=== PATIENT | male | born 1960 | race Caucasian/White ===

== ENCOUNTER 2019-01-21 15:47 | Inpatient (IN) | payer BC ==
[~2019-01-21] VITALS: Ht 182.9 cm; Wt 96.5 kg
[2019-01-21 16:34] LABS: Basophils # (auto) 0 uL; Basophils % (auto) 0.3 % (0.0-2.0); Eosinophils # (auto) 0.1 uL; Eosinophils % (auto) 1.6 % (0.0-7.0); Hematocrit 51.3 % (41.0-53.0); Hemoglobin 17.5 g/dL (13.5-17.5); Lymphocytes # (auto) 2.5 uL; Lymphocytes % (auto) 26.4 % (10.0-50.0); Mean Corpuscular Hemoglobin 30.3 pg (28.0-32.0); Mean Corpuscular Hgb Conc. 34.2 g/dL (32.0-36.0); Mean Corpuscular Volume 88.8 fL (80.0-100.0); Monocytes % (auto) 10.5 % (0.0-12.0); Neutrophils # (auto) 5.8 uL; Neutrophils % (auto) 61.2 % (37.0-80.0); Platelet Count (auto) 331 10^3/uL (140-450); Red Blood Cells 5.77 10^6/uL (4.5-5.90); Red Cell Distribution Width 13.5 % (11.8-14.3); White Blood Cell 9.5 10^3/uL (4.4-10.8)
[2019-01-21 16:43] LABS: Anion Gap 6 (5-15); Blood Urea Nitrogen 19 mg/dL (7-18); Calcium 9.5 mg/dL (8.5-10.1); Carbon Dioxide 29 mmol/L (21-32); Chloride 104 mmol/L (98-107); Glucose 145 mg/dL (74-106); Potassium 4.2 mmol/L (3.5-5.1); Sodium 139 mmol/L (136-145)
[2019-01-21 16:48] LABS: Alanine Aminotransferase 42 U/L (16-61); Alkaline Phosphatase 96 U/L (45-117); Aspartate Aminotransferase 24 U/L (15-37); Bilirubin, Total 0.4 mg/dL (0.2-1.0); GFR African American 87 mL/min; GFR Non-African American 72 mL/min; Total Protein 8.8 g/dL (6.4-8.2)
[2019-01-21 17:21] LABS: INR 0.96 (0.9-1.15); Partial Thromboplastin Time 27.4 sec (23.64-32.05)
[2019-01-21] MEDS ORDERED: ACETAMINOPHEN 325 MG TAB PO PRN (18:00)
[2019-01-21] MEDS ORDERED: MORPHINE SULF INJ 2 MG/ML SYRINGE 1ML IV PRN (18:00)
[2019-01-21] MEDS ORDERED: ONDANSETRON HCL 4 MG/2 ML VIAL IV PRN (18:00)
[2019-01-21] MEDS ORDERED: NITROGLYCERIN 0.4 MG SL TAB SL PRN (18:00)
[2019-01-21] MEDS ORDERED: HYDROcodone-ACET 5/325MG TAB PO PRN (18:00)
[2019-01-21] MEDS ORDERED: DEXTROSE (50%) 50ML SYRG IV PRN (18:00)
[2019-01-21] MEDS ORDERED: MAGNESIUM SULFATE 1GM/100ML 100 ML IV PRN (19:00)
[2019-01-21] MEDS ORDERED: hydrALAZINE HCL 25 MG TAB PO PRN (19:00)
[2019-01-21] MEDS: SODIUM CHLORIDE 0.9% 1,000 ML IV SCH (20:02)
[2019-01-21] MEDS: LISINOPRIL 10 MG TAB PO SCH (20:03)
[2019-01-21] MEDS: InsuLIN REG 1unit/0.01ml Soln (100units/ml) SC SCH (22:00)
[2019-01-21 22:02] LABS: Urine Bacteria NONE SEEN /hpf (None Seen); Urine Blood Negative /uL (Negative); Urine Specific Gravity 1.018 (1.001-1.035); Urine WBC 3 /hpf (0 - 3)
[2019-01-21] MEDS: ACCU-CHEK COMFORT CURVE STRIP VI SCH (22:05)
[2019-01-21] MEDS: GEMFIBROZIL 600 MG TAB PO SCH (22:10)
[2019-01-21 22:13] LABS: Alcohol, Urine < 3.0 mg/dL (0-5); Amphetamine Screen, Urine NEGATIVE (NEGATIVE); Barbiturate Scree,Urine NEGATIVE (NEGATIVE); Benzodiazephine Screen, Urine NEGATIVE (NEGATIVE); Cannabinoid Screen, Urine NEGATIVE (NEGATIVE); Cocaine Screen, Urine NEGATIVE (NEGATIVE); Opiate Scree,Urine NEGATIVE (NEGATIVE); Phencyclidine Screen, Urine NEGATIVE (NEGATIVE)
--- NOTE | 2019-01-21 23:35 | NUR ---
Admit ICU from ER. Arrival note: Received from ER on stretcher. Pt hooked up to ICU monitoring and oriented to room and nurse. Pt alert and oriented times four. Hematoma noted on top of head and left elbow skin tear. No complaints of pain or chest pain. VSS. Full assessment done see interventions. Bed locked in lowest position side rails up x2. Call light within reach. All questions and concerns addressed at this time.
[2019-01-22] VITALS (32 sets, daily range): BP systolic 116–166; BP diastolic 67–97
[2019-01-22] MEDS ORDERED: LISI10TA6 PO (00:55)
--- NOTE | 2019-01-22 02:00 | NUR ---
EKG done and in the chart. EKG shows sinus rhythm with 1st degree heart block.
--- NOTE | 2019-01-22 04:00 | NUR ---
ROUNDS PT HAS NO COMPLAINTS OF PAIN AT THIS TIME. VSS. WILL CONTINUE TO MONITOR
[2019-01-22 04:25] LABS: Basophils # (auto) 0 uL; Basophils % (auto) 0.4 % (0.0-2.0); Eosinophils # (auto) 0.1 uL; Eosinophils % (auto) 0.8 % (0.0-7.0); Hematocrit 48.2 % (41.0-53.0); Hemoglobin 16.3 g/dL (13.5-17.5); Lymphocytes # (auto) 2.2 uL; Lymphocytes % (auto) 20.5 % (10.0-50.0); Mean Corpuscular Hemoglobin 29.8 pg (28.0-32.0); Mean Corpuscular Hgb Conc. 33.9 g/dL (32.0-36.0); Monocytes # (auto) 1.1 uL; Monocytes % (auto) 9.9 % (0.0-12.0); Neutrophils # (auto) 7.4 uL; Neutrophils % (auto) 68.4 % (37.0-80.0); Platelet Count (auto) 305 10^3/uL (140-450); Red Blood Cells 5.47 10^6/uL (4.5-5.90); Red Cell Distribution Width 13.8 % (11.8-14.3); White Blood Cell 10.8 10^3/uL (4.4-10.8)
[2019-01-22 04:47] LABS: Calcium 8.9 mg/dL (8.5-10.1); Chloride 106 mmol/L (98-107); Sodium 139 mmol/L (136-145)
[2019-01-22 04:54] LABS: Alanine Aminotransferase 33 U/L (16-61); Albumin 3.3 g/dL (3.4-5.0); Alkaline Phosphatase 87 U/L (45-117); Anion Gap 9 (5-15); Aspartate Aminotransferase 22 U/L (15-37); BUN/Creatinine Ratio 20.2; Bilirubin, Total 0.5 mg/dL (0.2-1.0); Blood Urea Nitrogen 18 mg/dL (7-18); Carbon Dioxide 24 mmol/L (21-32); Cholesterol 213 mg/dL (< 200); GFR African American 113 mL/min; GFR Non-African American 93 mL/min; Glucose 148 mg/dL (74-106); HDL Cholesterol 44 mg/dL (40-59); LDL Cholesterol 145 mg/dL (< 100); Magnesium 1.3 mg/dL (1.6-2.6); Total Protein 7.6 g/dL (6.4-8.2); Triglycerides 220 mg/dL (< 150)
[2019-01-22] MEDS: ACCU-CHEK COMFORT CURVE STRIP VI SCH ×4 (06:28→21:06)
[2019-01-22] MEDS: InsuLIN REG 1unit/0.01ml Soln (100units/ml) SC SCH ×4 (06:28→21:06)
--- NOTE | 2019-01-22 07:10 | NUR ---
DR AYALA AT BEDSIDE UPDATED ON STATUS THROUGHOUT THE NIGHT, RECEIVED NEW ORDERS
--- NOTE | 2019-01-22 07:14 | NUR ---
End of shift Report given to CONSTANTINO Kaur to assume care
--- NOTE | 2019-01-22 08:15 | NUR ---
FAMILY AT BEDSIDE PATIENTS AND DAUGHTER AT BEDSIDE. UPDATED ON PATIENTS STATUS AND PLAN OF CARE
[2019-01-22] MEDS: MAGNESIUM SULFATE 1GM/100ML 100 ML IV SCH ×3 (08:20→10:41)
--- NOTE | 2019-01-22 08:25 | NUR ---
COMMUNITY CULTURAL DEVELOPMENT OFFICER AT BEDSIDE
[2019-01-22] MEDS: ENOXAPARIN SOD 40 MG/0.4 ML SYRINGE SC SCH (10:00)
[2019-01-22] MEDS ORDERED: CYANOCOBALAMIN (B-12) 1000 MCG/1 ML VIAL SUBCUT ONE (10:00)
[2019-01-22] MEDS: PANTOPRAZOLE 40 MG TAB PO SCH (10:41)
[2019-01-22] MEDS: LISINOPRIL 10 MG TAB PO SCH (10:41)
[2019-01-22] MEDS: ASPirin 81 mg TAB PO SCH (10:42)
[2019-01-22] MEDS: GEMFIBROZIL 600 MG TAB PO SCH ×2 (10:45→20:54)
[2019-01-22] MEDS: SODIUM CHLORIDE 0.9% 1,000 ML IV SCH (11:47)
--- NOTE | 2019-01-22 12:20 | NUR ---
DR SHARMA AT BEDSIDE DISCUSSED PLAN OF CARE WITH PATIENT, PATIENTS DAUGHTER AND PATIENTS . DISCUSSED ECHO RESULTS
--- NOTE | 2019-01-22 13:20 | NUR ---
DR CAMERON CALLED AND SPOK WITH WATER QUALITY ANALYST PLAN FOR PACEMAKER FOR TOMORROW
--- NOTE | 2019-01-22 13:46 | NUR ---
spoke with dr fuentes he will call dr gray regarding recommendations for heart cath angiogram
--- NOTE | 2019-01-22 15:05 | NUR ---
SENIOR LIVING SALES COUNSELOR AT BEDSIDE FOR CAROTID STUDY
--- NOTE | 2019-01-22 18:30 | NUR ---
BRADYCARDIA EPISODE PATIENT WENT INTO 3RD DEGREE HEART BLOCK, PACER PADS IN PLACE, PATIENT CONVERTED OUT OF RHYTHM BY HISELF AND CURRENTLY IN 1 DEGREE HEART BLOCK. STRIP PRINTED AND IN CHART
--- NOTE | 2019-01-22 19:30 | NUR ---
Opening Shift Note Pt laying in bed with family at bedside. POC reviewed. Pt to go for pacemaker insertion in AM. consents signed in chart. All questions and concerns addressed at this time. bed locked in lowest position. call light within reach. Will continue to monitor closely.
[2019-01-22] MEDS: ATORVASTATIN 20 MG TAB PO SCH (20:54)
--- NOTE | 2019-01-22 21:51 | NUR ---
DR. CAMERON PHONES IN. NEW ORDERS RECEIVED TO HAVE NS RUNNING AT 100 MLS/HR
[2019-01-23] VITALS (15 sets, daily range): BP systolic 106–148; BP diastolic 61–83
--- NOTE | 2019-01-23 01:48 | NUR ---
Respiratory Pt sleeping but continuously desaturates to 80's. Oxygen applied at 2lpm nasal cannula.
[2019-01-23 04:01] LABS: Calcium 9.2 mg/dL (8.5-10.1); Magnesium 1.7 mg/dL (1.6-2.6); Potassium 4.3 mmol/L (3.5-5.1)
[2019-01-23 04:03] LABS: BUN/Creatinine Ratio 21.6
[2019-01-23 04:06] LABS: RPR Non Reactive (Non Reactive)
[2019-01-23] MEDS: InsuLIN REG 1unit/0.01ml Soln (100units/ml) SC SCH ×4 (06:14→21:25)
[2019-01-23] MEDS: ACCU-CHEK COMFORT CURVE STRIP VI SCH ×4 (07:00→21:25)
--- NOTE | 2019-01-23 07:10 | NUR ---
ANESTHESIOLOGISTS' ASSISTANT HERE TO TAKE PT FOR PACEMAKER INSERTION.
[2019-01-23] MEDS: SODIUM CHLORIDE 0.9% 1,000 ML IV SCH ×3 (07:59→18:00)
--- NOTE | 2019-01-23 08:00 | NUR ---
PATIENT RETURNED FROM SENIOR PRICING ANALYST- UNABLE TO DO PACEMAKER AT THIS TIME DUE TO EMERGENT CASE IN SENIOR PRICING ANALYST. PATIENT WILL REMAIN NPO UNTIL RN CONFIRMS RESCHEDULE DATE AND TIME
--- NOTE | 2019-01-23 08:30 | NUR ---
SPOKE WITH DR AYALA AND DR SHARMA FAMILY REQUESTING CONSULT FOR DR DELACRUZ FOR LEFT HEART CATHETERIZATION. MDS AGREE, CONSULT DR DELACRUZ
[2019-01-23] MEDS: MAGNESIUM SULFATE 1GM/100ML 100 ML IV SCH ×3 (08:49→12:00)
--- NOTE | 2019-01-23 09:00 | NUR ---
DR DELACRUZ IN [facility] WILL DO HEART CATH TODAY.
--- NOTE | 2019-01-23 09:06 | NUR ---
Assessment Pt is a 58 yr old alert and oriented male. Prior to admit, pt lived with his , Emily, who is his emergency contact at [phone]. Prior to admit, pt was ambulatory, and independent with ADL's with no use of medical equipment. Pt admitted due to syncope and stated that they are currently doing test to find out the problem. Pt is employed and has no interest in AD. Pt has never used HH and states that he won't need it after d/c. Pt family will transport pt home upon d/c. No needs or concerns expressed at this time. Further needs will be assessed closer to d/c. Addendum: 01/23/19 at 0910 by WANDER FAYE Amended: Links added.
[2019-01-23] MEDS ORDERED: LIDOCAINE 2%HCL (LOCAL ANESTH.) INJ 20ML MDV ONE ×2 (09:29→15:08)
[2019-01-23] MEDS ORDERED: IOHEXOL 350 MG/ML 100ML IJ ONE (09:29)
--- NOTE | 2019-01-23 09:31 | NUR ---
MANAGER OF INTERNAL TEAM AT BEDSIDE PREPPING PATIENT FOR LEFT HEART ANGIOGRAM
[2019-01-23] MEDS ORDERED: IODIXANOL 320MG/ML 100ML BTL IV ONE ×2 (09:32→09:33)
[2019-01-23] MEDS ORDERED: ANGIOMAX 250 MG VIAL IV ONE (09:35)
[2019-01-23] MEDS ORDERED: fentaNYL CITRATE 100 MCG/2 ML VL ONE ×2 (09:35→15:08)
--- NOTE | 2019-01-23 09:35 | NUR ---
CARAMEL CUTTER HELPER TEAM TRANSPORTING PATIENT TO CARAMEL CUTTER HELPER CONNECTED TO PORTABLE WORT EXTRACTOR. VITALS STABLE AT TIME OF TRANSFER
[2019-01-23] MEDS ORDERED: SODIUM CHL 0.9% 0 ML ONE (09:36)
[2019-01-23] MEDS ORDERED: MIDAZOLAM HCL 1MG/1ML-2 ML VIAL ONE ×2 (09:36→15:08)
[2019-01-23] MEDS ORDERED: VERAPAMIL 2.5MG/ML INJ 2ML VIAL IV ONE (09:36)
[2019-01-23] MEDS ORDERED: HEPARIN SODIUM (PORCINE) 5000 UNITS/ML 1ML VIAL ONE (10:25)
--- NOTE | 2019-01-23 10:53 | NUR ---
PATIENT RETURNED FROM STREET ROLLER ENGINEER PATIENT AOX4, LEFT RADIAL ACCESS HAS TR BAND, NO HEMATOMA OR BLEEDING NOTED. WILL CONTINUE TO MONITOR CLOSELY. UPDATED ON PLAN OF CARE AND AT BEDSIDE
[2019-01-23] MEDS: ENOXAPARIN SOD 40 MG/0.4 ML SYRINGE SC SCH (11:01)
[2019-01-23] MEDS: ASPirin 81 mg TAB PO SCH (11:02)
--- NOTE | 2019-01-23 11:10 | NUR ---
2CC REMOVED FROM TR BAND NO BLEEDING OR HEMATOMA NOTED. WILL CONTINUE TO MONITOR
--- NOTE | 2019-01-23 11:21 | NUR ---
2CC REMOVED FROM TR BAND NO HEMATOMA OR BNLEEDING NOTED. PATIENT DENIES PAIN. WILL CONTINUE TO MONITOR
--- NOTE | 2019-01-23 11:55 | NUR ---
4CC OF AIR REMOVED FROM TR BAND NO BLEEDING OR HEMATOMA AT SITE NOTED. WILL CONTINUE TO MONITOR
[2019-01-23] MEDS: LISINOPRIL 10 MG TAB PO SCH (12:08)
[2019-01-23] MEDS: GEMFIBROZIL 600 MG TAB PO SCH ×2 (12:08→21:25)
[2019-01-23] MEDS: PANTOPRAZOLE 40 MG TAB PO SCH (12:08)
--- NOTE | 2019-01-23 12:10 | NUR ---
REMAINING 3 CC OF AIR REMOVED FROM TR BAND. NO BLEEDING OR HEMATOMA NOTED.
[2019-01-23] MEDS ORDERED: VANCOMYCIN 1GM/250ML 250 ML IV ONE (15:08)
[2019-01-23] MEDS ORDERED: BACITRACIN INJ 50000 UNIT VIAL ONE (15:09)
[2019-01-23] MEDS ORDERED: VANCOMYCIN HCL 1000 MG VL ONE (15:10)
--- NOTE | 2019-01-23 15:10 | NUR ---
SEMICONDUCTOR PROCESSING TECHNICIAN TEAM TRANSPORTED PATIENT TO SEMICONDUCTOR PROCESSING TECHNICIAN FOR PACEMAKER PROCEDURE AT BEDSIDE. PATIENTS VITALS STABLE AT TIME OF TRANSPORT
--- NOTE | 2019-01-23 17:00 | NUR ---
PATIENT RETURNED FROM CRACKER AND COOKIE MACHINE OPERATOR, POST PROCEDURE CXR COMPLETED IN ROOM, S/P PACEMAKER EKG COMPLETE IN IN CHART, PATIENT SINUS WITH 1ST DEGREE HEART BLOCK. ICE PACK PLACED IN PACEMAKER SITE. NO BLEEDING OR HEMATOMA NOTED AT SURGICAL SITE. PATIENT DENIES PAIN AT THIS TIME, BED IN LOW POSITION, CALL LIGHT WITH REACH
--- NOTE | 2019-01-23 17:05 | NUR ---
PATIENTS JOAQUIN AT BEDSIDE DR CAMERON SPOKE WITH HER POST PROCEDURE. PATIENT TO BE OFF WORK FOR 2 WEEKS AND 6 WEEKS NO LIFTING.
[2019-01-23] MEDS ORDERED: MORPHINE SULF INJ 2 MG/ML SYRINGE 1ML IV PRN (21:15)
[2019-01-23] MEDS ORDERED: HYDROcodone-ACET 5/325MG TAB PO PRN (21:15)
[2019-01-23] MEDS ORDERED: HYDROcodone-ACET 10/325MG TAB PO PRN (21:15)
[2019-01-23] MEDS: ATORVASTATIN 20 MG TAB PO SCH (21:24)
[2019-01-23] MEDS: DOXYCYCLINE 100 MG TAB/CAP PO SCH (21:24)
[2019-01-23] MEDS: VANCOMYCIN 1GM/250ML 250 ML IV SCH (21:24)
[2019-01-24] VITALS (8 sets, daily range): BP systolic 106–143; BP diastolic 58–73
[2019-01-24] MEDS: SODIUM CHLORIDE 0.9% 1,000 ML IV SCH (01:49)
[2019-01-24 05:40] LABS: INR 1.06 (0.9-1.15); Partial Thromboplastin Time 27.6 sec (23.64-32.05)
[2019-01-24 05:47] LABS: BUN/Creatinine Ratio 17.7; Calcium 8.6 mg/dL (8.5-10.1); Magnesium 1.7 mg/dL (1.6-2.6); Potassium 4.4 mmol/L (3.5-5.1)
[2019-01-24] MEDS: ACCU-CHEK COMFORT CURVE STRIP VI SCH ×2 (06:15→11:30)
[2019-01-24] MEDS: InsuLIN REG 1unit/0.01ml Soln (100units/ml) SC SCH ×2 (06:16→11:30)
[2019-01-24 07:07] LABS: Basophils # (auto) 0 uL; Basophils % (auto) 0.4 % (0.0-2.0); Eosinophils # (auto) 0.2 uL; Eosinophils % (auto) 2.4 % (0.0-7.0); Hematocrit 45.9 % (41.0-53.0); Hemoglobin 15.5 g/dL (13.5-17.5); Lymphocytes # (auto) 1.7 uL; Lymphocytes % (auto) 20.3 % (10.0-50.0); Mean Corpuscular Hemoglobin 29.8 pg (28.0-32.0); Mean Corpuscular Hgb Conc. 33.7 g/dL (32.0-36.0); Mean Corpuscular Volume 88.5 fL (80.0-100.0); Monocytes % (auto) 11.8 % (0.0-12.0); Neutrophils # (auto) 5.4 uL; Neutrophils % (auto) 65.1 % (37.0-80.0); Nucleated Red Blood Cells % 0.1 %; Platelet Count (auto) 275 10^3/uL (140-450); Red Blood Cells 5.19 10^6/uL (4.5-5.90); Red Cell Distribution Width 13.2 % (11.8-14.3); White Blood Cell 8.2 10^3/uL (4.4-10.8)
--- NOTE | 2019-01-24 07:30 | NUR ---
REPORT OBTAINED BY NOC NURSE PER NOC NURSE LUCY HAS MADE ROUNDS, AWAITING D/C CLEARANCE BY DR. CAMERON AFTER PACEMAKER INTERROGATION. MEDICATIONS TO BE CALLED IN BY MD TO PATIENTS PHARMACY ( [facility]). VERIFIED WITH PATIENT. 3 GRAMS OF MAGNESIUM TO BE GIVEN.
[2019-01-24] MEDS: MAGNESIUM SULFATE 1GM/100ML 100 ML IV SCH ×3 (07:54→11:07)
--- NOTE | 2019-01-24 08:11 | NUR ---
STATUS PATIENT ALERT AND ORIENTED X4, PATIENT CURRENTLY V PACED, VSS, ON ROOM AIR. LEFT UPPER ARM CDI, ICE PACK OVER SITE, PT STATING SLIGHTLY PAIN 3/10, NO MEDICATION REQUESTED AT THIS TIME. PATIENT ASSISTED OOB TO CHAIR USING STANDBY ASSISTANCE, STEADY GAIT NOTED. GERALD LICEA AT BEDSIDE FOR PACEMAKER INTERROGATION. PT VERIFIED PHARMACY [facility].
--- NOTE | 2019-01-24 09:00 | NUR ---
PARTS COUNTER ASSOCIATE DR. DELACRUZ UPDATED ON PATIENTS STATUS. REVIEWED CXR. NEW ORDER IN PLACE
[2019-01-24] MEDS ORDERED: INSULIN LANTUS (GLARGINE) 1 /0.01ml (100units/ml) SC ONE ×2 (09:15→10:00)
[2019-01-24] MEDS ORDERED: FUROSEMIDE 20 MG TAB PO ONE (09:15)
--- NOTE | 2019-01-24 09:34 | NUR ---
HOSPITALIST DR AYALA CALLED. UPDATED ON PATIENTS STATUS. NEW ORDERS IN PLACE. NEW CONSULT FOR DEHYDRATION PLANT OPERATOR. PER DR. AYALA IF DEHYDRATION PLANT OPERATOR DOES NOT SEE PATIENT BEFORE D/C OK TO D/C HOME. NUMBER TO BE PROVIDED FOR FOLLOW UP WITH D.C INSTRUCTIONS.
[2019-01-24] MEDS: PANTOPRAZOLE 40 MG TAB PO SCH (09:44)
[2019-01-24] MEDS: ASPirin 81 mg TAB PO SCH (09:44)
[2019-01-24] MEDS: DOXYCYCLINE 100 MG TAB/CAP PO SCH (09:44)
[2019-01-24] MEDS: VANCOMYCIN 1GM/250ML 250 ML IV SCH (09:45)
[2019-01-24] MEDS: ENOXAPARIN SOD 40 MG/0.4 ML SYRINGE SC SCH (09:53)
[2019-01-24] MEDS: GEMFIBROZIL 600 MG TAB PO SCH (09:55)
--- NOTE | 2019-01-24 10:17 | NUR ---
AMBULATION PATIENT ASSISTED OOB WALKED AROUND NURSES STATION ON ROOM AIR, DENIES ANY DIZZINESS. PT TOLERATED AMBULATION WELL.
--- NOTE | 2019-01-24 11:55 | NUR ---
DR. RAKESH MTZ FOR D/C CLEARANCE. ALL GTTS ORDERED COMPLETED. PATIENTS PHARMACY HAS CALLED WITH PRESCRIPTION READY. TO NURSING RESIDENT MEDS.
[2019-01-24] MEDS: LISINOPRIL 10 MG TAB PO SCH (12:05)
--- NOTE | 2019-01-24 13:42 | NUR ---
DR. ANDERSON OFFICE CALLED. NO ANSWER. WILL TRY AGAIN FOR D/C CLEARANCE. Addendum: 01/24/19 at 1343 by Anne Castillo RN AMEND TIME 1330
--- NOTE | 2019-01-24 13:44 | NUR ---
DR. CAMERON CALLED. RACHEL FOR D/C CLEARANCE. PT TO FOLLOW UP NEXT TUESDAY FOR STAPLE REMOVAL 01/31/19
--- NOTE | 2019-01-24 14:25 | NUR ---
DR. SHARMA AT BEDSIDE. MD RAMOS FOR D/C.
--- NOTE | 2019-01-24 14:37 | NUR ---
Discharge instructions given as ordered. Encourage to follow up with PMD as instructed. All questions and concerns addressed. Patient verbalized understanding. IV removed with catheter intact, pressure dressing applied, bhandari catheter removed. Patient taken to vehicle via wheelchair with all personal belongings, accompanied by staff and family member. No distress noted at time of departure.
== END 2019-01-24 14:37 | disposition home or self-care (01) | DRG 244 ==
LOC: ER 15:47 → TELE 15:48 → ICU WEST 23:20
PROVIDERS: ADMIT Family Medicine; ATTEND Family Medicine
PROC: B211YZZ Fluoroscopy of Multiple Coronary Arteries using Other Contrast (ICD-10-PCS; principal; 2019-01-23)
PROC: 0JH606Z Insertion of Pacemaker, Dual Chamber into Chest Subcutaneous Tissue and Fascia, Open Approach (ICD-10-PCS; 2019-01-23)
PROC: 02HK3JZ Insertion of Pacemaker Lead into Right Ventricle, Percutaneous Approach (ICD-10-PCS; 2019-01-23)
PROC: 02H63JZ Insertion of Pacemaker Lead into Right Atrium, Percutaneous Approach (ICD-10-PCS; 2019-01-23)
PROC: B5171ZZ Fluoroscopy of Left Subclavian Vein using Low Osmolar Contrast (ICD-10-PCS; 2019-01-23)
DX: I44.2 Atrioventricular block, complete (principal); E11.9 Type 2 diabetes mellitus without complications; E78.2 Mixed hyperlipidemia; E83.42 Hypomagnesemia; I11.9 Hypertensive heart disease without heart failure; R55 Syncope and collapse; S00.03XA Contusion of scalp, initial encounter; I49.5 Sick sinus syndrome; J32.0 Chronic maxillary sinusitis; W18.39XA Other fall on same level, initial encounter; Z82.49 Family history of ischemic heart disease and other diseases of the circulatory system; Z83.3 Family history of diabetes mellitus; Y93.89 Activity, other specified; Y92.89 Other specified places as the place of occurrence of the external cause; Y99.8 Other external cause status
CPT/HCPCS: 33208; 36415; 70450; 71045; 75820; 80048; 80053; 80061; 80307; 81001; 82306; 82607; 82962; 83036; 83735; 84443; 84484; 85025; 85610; 85730; 86592; 87040; 87081; 93005; 93306; 93454; 93886; 96361; 96365; 99152; 99153; C1785; G0378; J1815; J2250; Q9967

== ENCOUNTER 2019-05-07 00:01 | Inpatient (IN) | payer BC ==
[2019-05-07] VITALS (20 sets, daily range): BP systolic 107–140; BP diastolic 69–88
[~2019-05-07] VITALS: Ht 180.3 cm; Wt 104.7 kg
[~2019-05-07 00:01] MED LIST: LISI10TA6 PO
[2019-05-07 05:07] LABS: Basophils # (auto) 0 uL; Basophils % (auto) 0.3 % (0.0-2.0); Eosinophils # (auto) 0.2 uL; Eosinophils % (auto) 1.9 % (0.0-7.0); Hematocrit 43.7 % (41.0-53.0); Hemoglobin 14.9 g/dL (13.5-17.5); Lymphocytes # (auto) 2.2 uL; Lymphocytes % (auto) 23.6 % (10.0-50.0); Mean Corpuscular Hemoglobin 30.2 pg (28.0-32.0); Mean Corpuscular Hgb Conc. 34.1 g/dL (32.0-36.0); Mean Corpuscular Volume 88.6 fL (80.0-100.0); Monocytes # (auto) 1.1 uL; Monocytes % (auto) 11.1 % (0.0-12.0); Neutrophils % (auto) 63.1 % (37.0-80.0); Nucleated Red Blood Cells % 0.1 %; Platelet Count (auto) 318 10^3/uL (140-450); Red Blood Cells 4.93 10^6/uL (4.5-5.90); Red Cell Distribution Width 14.3 % (11.8-14.3); White Blood Cell 9.5 10^3/uL (4.4-10.8)
[2019-05-07 05:16] LABS: Albumin 3.8 g/dL (3.4-5.0); BUN/Creatinine Ratio 15.6; Calcium 9.6 mg/dL (8.5-10.1)
[2019-05-07 05:19] LABS: Bilirubin, Total 0.5 mg/dL (0.2-1.0); Total Protein 8.1 g/dL (6.4-8.2)
[2019-05-07] MEDS ORDERED: AMIODARONE HCL (50 MG/ ML) 3 ML VIAL IV ONE (06:32)
[2019-05-07] MEDS ORDERED: AMIODARONE HCL 150 MG in D5W 5% 100 ML IV ONE (06:45)
[2019-05-07] MEDS ORDERED: AMIODARONE HCL 900 MG in DEXTROSE 500 ML IV SCH (06:51)
[2019-05-07] MEDS ORDERED: MAGNESIUM SULFATE 1GM/100ML 100 ML IV ONE ×3 (08:15→09:15)
[2019-05-07] MEDS ORDERED: NITROGLYCERIN 0.4 MG SL TAB SL PRN (09:45)
[2019-05-07] MEDS ORDERED: ENALAPRILAT 1.25 MG/ML-1ML VIAL IV PRN (09:45)
[2019-05-07] MEDS ORDERED: MORPHINE SULF INJ 2 MG/ML SYRINGE 1ML IV PRN (09:45)
[2019-05-07] MEDS ORDERED: DEXTROSE (50%) 50ML SYRG IV PRN (09:45)
[2019-05-07] MEDS: SODIUM CHLORIDE 0.9% 1,000 ML IV SCH ×2 (09:45→14:27)
[2019-05-07] MEDS ORDERED: LOSARTAN POTASSIUM 25 MG TAB PO SCH (10:00)
[2019-05-07] MEDS ORDERED: LIDOCAINE 2%HCL (LOCAL ANESTH.) INJ 20ML MDV ONE (10:25)
[2019-05-07] MEDS ORDERED: IODIXANOL 320MG/ML 100ML BTL IV ONE ×2 (10:25→10:34)
[2019-05-07] MEDS ORDERED: fentaNYL CITRATE 100 MCG/2 ML VL ONE (10:28)
[2019-05-07] MEDS ORDERED: HEPARIN SODIUM (PORCINE) 5000 UNITS/ML 1ML VIAL ONE (10:28)
[2019-05-07] MEDS ORDERED: MIDAZOLAM HCL 1MG/1ML-2 ML VIAL ONE (10:28)
[2019-05-07] MEDS ORDERED: VERAPAMIL 2.5MG/ML INJ 2ML VIAL IV ONE (10:28)
[2019-05-07] MEDS ORDERED: ANGIOMAX 250 MG VIAL IV ONE (10:28)
[2019-05-07] MEDS ORDERED: SODIUM CHL 0.9% 0 ML ONE (10:28)
[2019-05-07 10:33] LABS: INR 1.14 (0.9-1.15); Partial Thromboplastin Time 28.8 sec (23.64-32.05)
[2019-05-07] MEDS: InsuLIN REG 1unit/0.01ml Soln (100units/ml) SC SCH ×3 (11:30→23:16)
[2019-05-07] MEDS ORDERED: ACETAMINOPHEN 500 MG TAB PO PRN (11:30)
[2019-05-07] MEDS: ACCU-CHEK COMFORT CURVE STRIP VI SCH ×3 (11:30→23:15)
[2019-05-07] MEDS ORDERED: MEXILETINE HYDROCHLORIDE 150 MG CAP PO ONE (12:00)
[2019-05-07] MEDS ORDERED: METOPROLOL TARTRATE 25 MG TAB PO ONE (12:00)
[2019-05-07] MEDS: MAGNESIUM SULFATE 1GM/100ML 100 ML IV SCH ×2 (12:07→13:08)
[2019-05-07] MEDS: LIDOCAINE 4MG/ML IV SOLN 500 ML IV SCH (12:51)
[2019-05-07] MEDS ORDERED: MEXILETINE HYDROCHLORIDE 150 MG CAP PO SCH (14:00)
[2019-05-07] MEDS: AMIODARONE HCL 900 MG in DEXTROSE 500 ML IV SCH (14:05)
[2019-05-07 15:33] LABS: Potassium 4.3 mmol/L (3.5-5.1)
[2019-05-07 15:35] LABS: Magnesium 2.5 mg/dL (1.6-2.6)
[2019-05-07] MEDS ORDERED: SODIUM CHLORIDE 0.9% 1,000 ML IV ONE (15:45)
[2019-05-07] MEDS: ONDANSETRON HCL 4 MG/2 ML VIAL IV PRN (16:19)
[2019-05-07] MEDS ORDERED: PANTOPRAZOLE 40 MG TAB PO ONE (16:45)
[2019-05-07] MEDS ORDERED: GLIM1TAB3 PO (18:58)
[2019-05-07] MEDS ORDERED: LOSA-69 PO (18:58)
[2019-05-07] MEDS ORDERED: GEMF600T PO (18:58)
[2019-05-07] MEDS ORDERED: ATOR20TA50 PO (18:58)
[2019-05-07] MEDS ORDERED: METF-371 PO (18:58)
[2019-05-07 21:32] LABS: Anion Gap 7 (5-15); BUN/Creatinine Ratio 18.5; Blood Urea Nitrogen 20 mg/dL (7-18); Calcium 8.2 mg/dL (8.5-10.1); Carbon Dioxide 19 mmol/L (21-32); Chloride 109 mmol/L (98-107); GFR African American 90 mL/min; GFR Non-African American 74 mL/min; Glucose 227 mg/dL (74-106); Magnesium 2.2 mg/dL (1.6-2.6); Potassium 4.9 mmol/L (3.5-5.1); Sodium 135 mmol/L (136-145)
[2019-05-07 21:41] LABS: Basophils # (auto) 0 uL; Basophils % (auto) 0.1 % (0.0-2.0); Eosinophils # (auto) 0 uL; Eosinophils % (auto) 0.1 % (0.0-7.0); Hematocrit 45.8 % (41.0-53.0); Hemoglobin 14.5 g/dL (13.5-17.5); Lymphocytes # (auto) 1.3 uL; Lymphocytes % (auto) 9.9 % (10.0-50.0); Mean Corpuscular Hemoglobin 29.5 pg (28.0-32.0); Mean Corpuscular Hgb Conc. 31.7 g/dL (32.0-36.0); Mean Corpuscular Volume 93.3 fL (80.0-100.0); Monocytes # (auto) 0.7 uL; Monocytes % (auto) 5.3 % (0.0-12.0); Neutrophils # (auto) 11.1 uL; Neutrophils % (auto) 84.6 % (37.0-80.0); Nucleated Red Blood Cells % 0.1 %; Platelet Count (auto) 254 10^3/uL (140-450); Red Blood Cells 4.91 10^6/uL (4.5-5.90); White Blood Cell 13.2 10^3/uL (4.4-10.8)
[2019-05-07] MEDS: METOPROLOL TARTRATE 25 MG TAB PO SCH (22:00)
[2019-05-07] MEDS: ATORVASTATIN 20 MG TAB PO SCH (23:14)
[2019-05-07] MEDS: MEXILETINE HYDROCHLORIDE 150 MG CAP PO SCH (23:14)
[2019-05-07] MEDS: INSULIN LANTUS (GLARGINE) 1 /0.01ml (100units/ml) SC SCH (23:15)
[2019-05-07] MEDS: PANTOPRAZOLE 40 MG TAB PO SCH (23:15)
[2019-05-08] VITALS (44 sets, daily range): BP systolic 103–140; BP diastolic 55–85
[2019-05-08] MEDS ORDERED: AMIODARONE HCL 900 MG IV ONE (01:25)
[2019-05-08 04:29] LABS: Basophils # (auto) 0 uL; Basophils % (auto) 0.2 % (0.0-2.0); Eosinophils # (auto) 0 uL; Eosinophils % (auto) 0.2 % (0.0-7.0); Hematocrit 41.8 % (41.0-53.0); Hemoglobin 14.1 g/dL (13.5-17.5); Lymphocytes # (auto) 1.8 uL; Lymphocytes % (auto) 15.4 % (10.0-50.0); Mean Corpuscular Hemoglobin 30.2 pg (28.0-32.0); Mean Corpuscular Hgb Conc. 33.8 g/dL (32.0-36.0); Mean Corpuscular Volume 89.3 fL (80.0-100.0); Monocytes # (auto) 1.3 uL; Monocytes % (auto) 11.3 % (0.0-12.0); Neutrophils # (auto) 8.5 uL; Neutrophils % (auto) 72.9 % (37.0-80.0); Nucleated Red Blood Cells % 0.1 %; Platelet Count (auto) 237 10^3/uL (140-450); Red Blood Cells 4.68 10^6/uL (4.5-5.90); Red Cell Distribution Width 14.7 % (11.8-14.3); White Blood Cell 11.6 10^3/uL (4.4-10.8)
[2019-05-08 04:53] LABS: Albumin 3.3 g/dL (3.4-5.0); Calcium 8.4 mg/dL (8.5-10.1); Magnesium 1.9 mg/dL (1.6-2.6); Potassium 4.6 mmol/L (3.5-5.1)
[2019-05-08 04:58] LABS: BUN/Creatinine Ratio 18.9; Bilirubin, Total 0.7 mg/dL (0.2-1.0)
[2019-05-08] MEDS: SODIUM CHLORIDE 0.9% 1,000 ML IV SCH ×2 (05:45→15:45)
[2019-05-08] MEDS: INSULIN LANTUS (GLARGINE) 1 /0.01ml (100units/ml) SC SCH ×2 (07:00→21:06)
[2019-05-08] MEDS: ACCU-CHEK COMFORT CURVE STRIP VI SCH ×4 (07:03→21:18)
[2019-05-08] MEDS: InsuLIN REG 1unit/0.01ml Soln (100units/ml) SC SCH ×4 (07:04→21:34)
[2019-05-08] MEDS: MEXILETINE HYDROCHLORIDE 150 MG CAP PO SCH ×3 (07:45→21:06)
[2019-05-08] MEDS ORDERED: MAGNESIUM SULFATE 1GM/100ML 200 ML IV ONE (07:45)
[2019-05-08] MEDS: MAGNESIUM SULFATE 1GM/100ML 100 ML IV SCH ×2 (08:40→10:18)
[2019-05-08] MEDS: ONDANSETRON HCL 4 MG/2 ML VIAL IV PRN ×3 (09:45→20:52)
[2019-05-08] MEDS: PANTOPRAZOLE 40 MG TAB PO SCH ×2 (11:42→21:06)
[2019-05-08] MEDS: METOPROLOL TARTRATE 25 MG TAB PO SCH ×2 (11:42→21:05)
[2019-05-08] MEDS: AMIODARONE HCL 900 MG in DEXTROSE 500 ML IV SCH (12:51)
[2019-05-08] MEDS: LIDOCAINE 4MG/ML IV SOLN 500 ML IV SCH (17:40)
[2019-05-08] MEDS ORDERED: LORazepam 2MG/ML-1ML VIAL ONE (18:38)
[2019-05-08] MEDS ORDERED: TEMAZEPAM 15 MG CAP PO PRN (18:45)
[2019-05-08] MEDS ORDERED: LORazepam 2MG/ML-1ML VIAL IV PRN (18:45)
[2019-05-08] MEDS: ATORVASTATIN 20 MG TAB PO SCH (21:05)
[2019-05-08] MEDS ORDERED: MAGNESIUM OXIDE 400 MG TAB PO SCH (22:00)
[2019-05-09] VITALS (61 sets, daily range): BP systolic 105–144; BP diastolic 60–90
[2019-05-09] MEDS: SODIUM CHLORIDE 0.9% 1,000 ML IV SCH ×2 (01:45→22:15)
[2019-05-09 03:40] LABS: Basophils # (auto) 0 uL; Basophils % (auto) 0.1 % (0.0-2.0); Eosinophils # (auto) 0 uL; Hematocrit 42.5 % (41.0-53.0); Lymphocytes # (auto) 1.9 uL; Lymphocytes % (auto) 14.4 % (10.0-50.0); Mean Corpuscular Hemoglobin 29.5 pg (28.0-32.0); Mean Corpuscular Hgb Conc. 32.9 g/dL (32.0-36.0); Mean Corpuscular Volume 89.6 fL (80.0-100.0); Monocytes # (auto) 1.3 uL; Monocytes % (auto) 10.3 % (0.0-12.0); Neutrophils # (auto) 9.8 uL; Neutrophils % (auto) 75.2 % (37.0-80.0); Nucleated Red Blood Cells % 0.2 %; Platelet Count (auto) 222 10^3/uL (140-450); Red Blood Cells 4.75 10^6/uL (4.5-5.90); Red Cell Distribution Width 14.3 % (11.8-14.3); White Blood Cell 13.1 10^3/uL (4.4-10.8)
[2019-05-09 04:01] LABS: Potassium 4.8 mmol/L (3.5-5.1)
[2019-05-09 04:06] LABS: Albumin 3.4 g/dL (3.4-5.0); BUN/Creatinine Ratio 23.8; Bilirubin, Total 0.9 mg/dL (0.2-1.0); Calcium 8.2 mg/dL (8.5-10.1); Magnesium 1.9 mg/dL (1.6-2.6); Total Protein 7.4 g/dL (6.4-8.2)
[2019-05-09] MEDS: ACCU-CHEK COMFORT CURVE STRIP VI SCH ×4 (06:45→22:30)
[2019-05-09] MEDS: INSULIN LANTUS (GLARGINE) 1 /0.01ml (100units/ml) SC SCH ×2 (06:45→22:00)
[2019-05-09] MEDS: MEXILETINE HYDROCHLORIDE 150 MG CAP PO SCH ×3 (06:45→22:00)
[2019-05-09] MEDS: InsuLIN REG 1unit/0.01ml Soln (100units/ml) SC SCH ×4 (07:00→22:30)
[2019-05-09] MEDS: MAGNESIUM SULFATE 1GM/100ML 100 ML IV SCH ×2 (08:23→09:25)
[2019-05-09] MEDS: PANTOPRAZOLE 40 MG TAB PO SCH ×2 (10:10→22:00)
[2019-05-09] MEDS: METOPROLOL TARTRATE 50 MG TAB PO SCH ×2 (10:15→22:00)
[2019-05-09] MEDS ORDERED: AMIODARONE HCL 200 MG TAB PO ONE (10:45)
[2019-05-09] MEDS: LIDOCAINE 4MG/ML IV SOLN 500 ML IV SCH (12:45)
[2019-05-09] MEDS ORDERED: ALPRAZolam 0.5 MG TAB PO ONE (13:15)
[2019-05-09] MEDS ORDERED: FUROSEMIDE 20 MG/2 ML VIAL IV ONE (13:15)
[2019-05-09] MEDS: ONDANSETRON HCL 4 MG/2 ML VIAL IV PRN (13:34)
[2019-05-09] MEDS: MAGNESIUM OXIDE 400 MG TAB PO SCH ×2 (14:56→22:00)
[2019-05-09] MEDS: AMIODARONE HCL 200 MG TAB PO SCH (22:29)
[2019-05-09] MEDS: ATORVASTATIN 20 MG TAB PO SCH (22:29)
[2019-05-10] VITALS (23 sets, daily range): BP systolic 110–166; BP diastolic 65–92
[2019-05-10 04:11] LABS: Basophils # (auto) 0 uL; Basophils % (auto) 0.4 % (0.0-2.0); Eosinophils # (auto) 0.1 uL; Eosinophils % (auto) 0.6 % (0.0-7.0); Hematocrit 42.7 % (41.0-53.0); Hemoglobin 13.8 g/dL (13.5-17.5); Lymphocytes # (auto) 1.9 uL; Lymphocytes % (auto) 13.9 % (10.0-50.0); Mean Corpuscular Hemoglobin 29.7 pg (28.0-32.0); Mean Corpuscular Hgb Conc. 32.3 g/dL (32.0-36.0); Mean Corpuscular Volume 91.8 fL (80.0-100.0); Monocytes # (auto) 1.5 uL; Monocytes % (auto) 10.8 % (0.0-12.0); Neutrophils # (auto) 10.4 uL; Neutrophils % (auto) 74.3 % (37.0-80.0); Nucleated Red Blood Cells % 0.1 %; Platelet Count (auto) 186 10^3/uL (140-450); Red Blood Cells 4.66 10^6/uL (4.5-5.90); Red Cell Distribution Width 14.2 % (11.8-14.3)
[2019-05-10 05:04] LABS: BUN/Creatinine Ratio 24.1; Calcium 8.1 mg/dL (8.5-10.1); Potassium 4.4 mmol/L (3.5-5.1)
[2019-05-10] MEDS: ONDANSETRON HCL 4 MG/2 ML VIAL IV PRN ×3 (06:35→22:30)
[2019-05-10] MEDS: MEXILETINE HYDROCHLORIDE 150 MG CAP PO SCH ×3 (06:35→22:35)
[2019-05-10] MEDS: INSULIN LANTUS (GLARGINE) 1 /0.01ml (100units/ml) SC SCH ×2 (06:35→22:35)
[2019-05-10] MEDS: MAGNESIUM OXIDE 400 MG TAB PO SCH ×3 (06:35→22:35)
[2019-05-10] MEDS: InsuLIN REG 1unit/0.01ml Soln (100units/ml) SC SCH ×4 (06:36→22:35)
[2019-05-10] MEDS: ACCU-CHEK COMFORT CURVE STRIP VI SCH ×4 (06:36→22:20)
[2019-05-10] MEDS ORDERED: ATROPINE SULF 1 MG/10ml SYR ONE (07:32)
[2019-05-10] MEDS ORDERED: VANCOMYCIN HCL 1000 MG VL ONE (07:32)
[2019-05-10] MEDS ORDERED: fentaNYL CITRATE 100 MCG/2 ML VL ONE (07:32)
[2019-05-10] MEDS ORDERED: MIDAZOLAM HCL 1MG/1ML-2 ML VIAL ONE (07:33)
[2019-05-10] MEDS ORDERED: VANCOMYCIN 1GM/250ML 250 ML IV ONE (07:33)
[2019-05-10] MEDS ORDERED: BACITRACIN INJ 50000 UNIT VIAL ONE (07:33)
[2019-05-10] MEDS ORDERED: LIDOCAINE 2%HCL (LOCAL ANESTH.) INJ 20ML MDV ONE ×2 (07:33→09:40)
[2019-05-10] MEDS ORDERED: IODIXANOL 320MG/ML 100ML BTL IV ONE (07:39)
[2019-05-10] MEDS ORDERED: PIPERACILLIN-TAZOB 3.375GM 100 ML IV ONE ×3 (08:30→22:00)
[2019-05-10] MEDS: SODIUM CHLORIDE 0.9% 1,000 ML IV SCH (11:35)
[2019-05-10] MEDS: LIDOCAINE 4MG/ML IV SOLN 500 ML IV SCH (12:45)
[2019-05-10] MEDS: AMIODARONE HCL 200 MG TAB PO SCH ×2 (13:41→22:35)
[2019-05-10] MEDS: PANTOPRAZOLE 40 MG TAB PO SCH ×2 (13:41→22:35)
[2019-05-10] MEDS: METOPROLOL TARTRATE 50 MG TAB PO SCH ×2 (13:42→22:35)
[2019-05-10] MEDS ORDERED: FUROSEMIDE 20 MG/2 ML VIAL IV ONE (15:15)
[2019-05-10] MEDS ORDERED: POTASSIUM CHL 20 Meq TABLET PO ONE (15:15)
[2019-05-10] MEDS: HYDROcodone-ACET 5/325MG TAB PO PRN ×2 (15:43→22:35)
[2019-05-10] MEDS ORDERED: THROAT LOZENGES(CEPASTAT) MT PRN (17:00)
[2019-05-10] MEDS ORDERED: VANCOMYCIN 1GM/250ML 250 ML IV SCH (19:00)
[2019-05-10] MEDS: ATORVASTATIN 20 MG TAB PO SCH (22:35)
[2019-05-11] VITALS (19 sets, daily range): BP systolic 113–133; BP diastolic 68–84
[2019-05-11] MEDS: PIPERACILLIN-TAZOB 3.375GM 100 ML IV SCH ×4 (04:20→22:06)
[2019-05-11 04:43] LABS: Basophils # (auto) 0.1 uL; Basophils % (auto) 0.8 % (0.0-2.0); Eosinophils # (auto) 0.3 uL; Eosinophils % (auto) 2.9 % (0.0-7.0); Hematocrit 37.6 % (41.0-53.0); Hemoglobin 12.9 g/dL (13.5-17.5); Lymphocytes # (auto) 1.4 uL; Lymphocytes % (auto) 13.5 % (10.0-50.0); Mean Corpuscular Hgb Conc. 34.3 g/dL (32.0-36.0); Mean Corpuscular Volume 87.5 fL (80.0-100.0); Monocytes # (auto) 1.3 uL; Monocytes % (auto) 12.9 % (0.0-12.0); Neutrophils # (auto) 7.3 uL; Neutrophils % (auto) 69.9 % (37.0-80.0); Nucleated Red Blood Cells % 0.1 %; Platelet Count (auto) 196 10^3/uL (140-450); Red Cell Distribution Width 13.9 % (11.8-14.3); White Blood Cell 10.4 10^3/uL (4.4-10.8)
[2019-05-11 05:03] LABS: BUN/Creatinine Ratio 18.4; Calcium 8.4 mg/dL (8.5-10.1); Potassium 4.1 mmol/L (3.5-5.1)
[2019-05-11] MEDS: ACCU-CHEK COMFORT CURVE STRIP VI SCH ×4 (06:30→22:11)
[2019-05-11] MEDS: MEXILETINE HYDROCHLORIDE 150 MG CAP PO SCH ×3 (06:30→22:10)
[2019-05-11] MEDS: MAGNESIUM OXIDE 400 MG TAB PO SCH ×3 (06:30→22:10)
[2019-05-11] MEDS: ONDANSETRON HCL 4 MG/2 ML VIAL IV PRN ×3 (06:30→14:21)
[2019-05-11] MEDS: INSULIN LANTUS (GLARGINE) 1 /0.01ml (100units/ml) SC SCH ×2 (06:30→22:11)
[2019-05-11] MEDS: InsuLIN REG 1unit/0.01ml Soln (100units/ml) SC SCH ×4 (06:31→22:11)
[2019-05-11] MEDS ORDERED: VANCOMYCIN 1GM/250ML 250 ML IV SCH (07:00)
[2019-05-11] MEDS: AMIODARONE HCL 200 MG TAB PO SCH ×2 (10:00→22:06)
[2019-05-11] MEDS: METOPROLOL TARTRATE 50 MG TAB PO SCH ×2 (10:00→22:10)
[2019-05-11] MEDS: PANTOPRAZOLE 40 MG TAB PO SCH ×2 (10:30→22:11)
[2019-05-11] MEDS: FUROSEMIDE 20 MG/2 ML VIAL IV SCH (10:30)
[2019-05-11] MEDS: POTASSIUM CHL 20 Meq TABLET PO SCH (10:31)
[2019-05-11] MEDS ORDERED: ENOXAPARIN SOD 100 MG/1 ML SYRINGE SC ONE (17:00)
[2019-05-11] MEDS: ATORVASTATIN 20 MG TAB PO SCH (22:06)
[2019-05-12 04:12] LABS: Basophils # (auto) 0 uL; Basophils % (auto) 0.3 % (0.0-2.0); Eosinophils # (auto) 0.3 uL; Hematocrit 37.1 % (41.0-53.0); Hemoglobin 13.1 g/dL (13.5-17.5); Lymphocytes # (auto) 1.7 uL; Lymphocytes % (auto) 16.3 % (10.0-50.0); Mean Corpuscular Hemoglobin 30.7 pg (28.0-32.0); Mean Corpuscular Hgb Conc. 35.2 g/dL (32.0-36.0); Mean Corpuscular Volume 87.3 fL (80.0-100.0); Monocytes # (auto) 1.3 uL; Neutrophils % (auto) 67.4 % (37.0-80.0); Platelet Count (auto) 220 10^3/uL (140-450); Red Blood Cells 4.25 10^6/uL (4.5-5.90); Red Cell Distribution Width 14.1 % (11.8-14.3); White Blood Cell 10.4 10^3/uL (4.4-10.8)
[2019-05-12 04:49] LABS: Potassium 3.7 mmol/L (3.5-5.1)
[2019-05-12 04:55] LABS: BUN/Creatinine Ratio 17.2; Calcium 8.4 mg/dL (8.5-10.1); Magnesium 1.7 mg/dL (1.6-2.6)
[2019-05-12] MEDS: PIPERACILLIN-TAZOB 3.375GM 100 ML IV SCH ×2 (05:23→09:56)
[2019-05-12 06:30] VITALS: BP 138/76
[2019-05-12] MEDS: MEXILETINE HYDROCHLORIDE 150 MG CAP PO SCH ×2 (06:36→13:56)
[2019-05-12] MEDS: MAGNESIUM OXIDE 400 MG TAB PO SCH ×2 (06:36→13:55)
[2019-05-12] MEDS: INSULIN LANTUS (GLARGINE) 1 /0.01ml (100units/ml) SC SCH (06:37)
[2019-05-12] MEDS: ENOXAPARIN SOD 100 MG/1 ML SYRINGE SC SCH ×2 (06:37→16:42)
[2019-05-12] MEDS: ACCU-CHEK COMFORT CURVE STRIP VI SCH ×3 (06:37→16:42)
[2019-05-12] MEDS: InsuLIN REG 1unit/0.01ml Soln (100units/ml) SC SCH ×3 (06:37→16:43)
[2019-05-12 08:00] VITALS: BP 133/72
[2019-05-12] MEDS: ONDANSETRON HCL 4 MG/2 ML VIAL IV PRN (09:57)
[2019-05-12] MEDS: FUROSEMIDE 20 MG/2 ML VIAL IV SCH (09:57)
[2019-05-12] MEDS: PANTOPRAZOLE 40 MG TAB PO SCH (09:58)
[2019-05-12] MEDS: METOPROLOL TARTRATE 50 MG TAB PO SCH (09:58)
[2019-05-12] MEDS: AMIODARONE HCL 200 MG TAB PO SCH (09:58)
[2019-05-12] MEDS: POTASSIUM CHL 20 Meq TABLET PO SCH (09:58)
[2019-05-12 10:00] VITALS: BP 134/76
[2019-05-12 12:00] VITALS: BP 124/72
[2019-05-12 14:00] VITALS: BP 125/74
[2019-05-12 16:00] VITALS: BP 126/77
[2019-05-12] MEDS ORDERED: ceFAZolin 1GM/50ML 50 ML IV SCH (22:00)
== END 2019-05-12 19:31 | disposition short-term general hospital (02) | DRG 224 ==
LOC: ER 00:03 → ICU WEST 00:04
PROVIDERS: ADMIT Nurse Practitioner Acute Care; ATTEND Internal Medicine
PROC: B211YZZ Fluoroscopy of Multiple Coronary Arteries using Other Contrast (ICD-10-PCS; principal; 2019-05-10)
PROC: 0JH609Z Insertion of Cardiac Resynchronization Defibrillator Pulse Generator into Chest Subcutaneous Tissue and Fascia, Open Approach (ICD-10-PCS; 2019-05-10)
PROC: 02HK3KZ Insertion of Defibrillator Lead into Right Ventricle, Percutaneous Approach (ICD-10-PCS; 2019-05-10)
PROC: 02HL3KZ Insertion of Defibrillator Lead into Left Ventricle, Percutaneous Approach (ICD-10-PCS; 2019-05-10)
PROC: 02HK3KZ Insertion of Defibrillator Lead into Right Ventricle, Percutaneous Approach (ICD-10-PCS; 2019-05-10)
PROC: 02HL3KZ Insertion of Defibrillator Lead into Left Ventricle, Percutaneous Approach (ICD-10-PCS; 2019-05-10)
PROC: 02PA3MZ Removal of Cardiac Lead from Heart, Percutaneous Approach (ICD-10-PCS; 2019-05-10)
PROC: B517YZZ Fluoroscopy of Left Subclavian Vein using Other Contrast (ICD-10-PCS; 2019-05-10)
PROC: 4B02XSZ Measurement of Cardiac Pacemaker, External Approach (ICD-10-PCS; 2019-05-10)
PROC: B211YZZ Fluoroscopy of Multiple Coronary Arteries using Other Contrast (ICD-10-PCS; 2019-05-10)
DX: I47.2 Ventricular tachycardia (principal); I50.21 Acute systolic (congestive) heart failure; I25.10 Atherosclerotic heart disease of native coronary artery without angina pectoris; E78.5 Hyperlipidemia, unspecified; E11.9 Type 2 diabetes mellitus without complications; I11.0 Hypertensive heart disease with heart failure; E83.42 Hypomagnesemia; Z83.3 Family history of diabetes mellitus; Z82.49 Family history of ischemic heart disease and other diseases of the circulatory system; Z79.4 Long term (current) use of insulin; Z95.0 Presence of cardiac pacemaker
CPT/HCPCS: 36415; 70450; 71045; 71250; 74176; 80048; 80053; 82962; 83036; 83735; 83880; 84132; 84443; 84484; 85025; 85379; 85610; 85652; 85730; 86141; 87081; 93005; 93306; 93926; 93970; 93971; 99152; 99153; 99291; C1769; G0378; J1815; J2250; J2405; J2543; J7060; Q9967

== ENCOUNTER 2019-05-18 14:07 | Inpatient (IN) | payer BC ==
[2019-05-18] VITALS (21 sets, daily range): BP systolic 93–137; BP diastolic 53–91
[~2019-05-18] VITALS: Ht 182.9 cm; Wt 99.1 kg
[~2019-05-18 14:07] MED LIST changes: +ATOR20TA50 PO; +GEMF600T PO; +GLIM1TAB3 PO; +LOSA-69 PO; +METF-371 PO
[2019-05-18 15:19] LABS: Basophils # (auto) 0.1 10 ^3/uL (0-0.2); Basophils % (auto) 0.5 % (0.0-2.0); Eosinophils # (auto) 0.1 10 ^3/uL (0-0.8); Eosinophils % (auto) 0.5 % (0.0-7.0); Hematocrit 38.7 % (41.0-53.0); Lymphocytes # (auto) 1.1 10 ^3/uL (0.4-5.4); Lymphocytes % (auto) 6.9 % (10.0-50.0); Mean Corpuscular Hemoglobin 30.1 pg (28.0-32.0); Mean Corpuscular Hgb Conc. 33.7 g/dL (32.0-36.0); Mean Corpuscular Volume 89.1 fL (80.0-100.0); Monocytes # (auto) 1.9 10 ^3/uL (0-1.3); Monocytes % (auto) 11.7 % (0.0-12.0); Neutrophils % (auto) 80.4 % (37.0-80.0); Platelet Count (auto) 322 10^3/uL (140-450); Red Blood Cells 4.34 10^6/uL (4.5-5.90); Red Cell Distribution Width 14.3 % (11.8-14.3); White Blood Cell 16.1 10^3/uL (4.4-10.8)
[2019-05-18 15:39] LABS: Albumin 2.9 g/dL (3.4-5.0); Anion Gap 6 (5-15); Blood Urea Nitrogen 24 mg/dL (7-18); Calcium 8.7 mg/dL (8.5-10.1); Carbon Dioxide 24 mmol/L (21-32); Chloride 101 mmol/L (98-107); Glucose 151 mg/dL (74-106); Magnesium 1.8 mg/dL (1.6-2.6); Potassium 4.4 mmol/L (3.5-5.1); Sodium 131 mmol/L (136-145)
[2019-05-18 15:41] LABS: Alanine Aminotransferase 53 U/L (16-61); Aspartate Aminotransferase 23 U/L (15-37); BUN/Creatinine Ratio 21.4; GFR African American 86 mL/min; GFR Non-African American 71 mL/min
[2019-05-18 15:43] LABS: Alkaline Phosphatase 98 U/L (45-117); Bilirubin, Total 0.8 mg/dL (0.2-1.0); Total Protein 7.4 g/dL (6.4-8.2)
[2019-05-18] MEDS ORDERED: SODIUM CHLORIDE 0.9% 1,000 ML IV ONE (15:45)
[2019-05-18] MEDS ORDERED: FUROSEMIDE 40 MG/4 ML VIAL IV ONE (15:45)
[2019-05-18] MEDS ORDERED: levoFLOXacin 500MG 100 ML IV ONE (16:00)
[2019-05-18] MEDS ORDERED: NOREPINEPHRINE 8 MG/250ML KIT 250 ML IV ONE (16:36)
[2019-05-18] MEDS ORDERED: ALBUTEROL SULF 2.5 MG/0.5ML(0.5%) NEB SOLN NEB PRN (16:45)
[2019-05-18] MEDS ORDERED: ACETAMINOPHEN 500 MG TAB PO PRN (16:45)
[2019-05-18] MEDS ORDERED: LACTULOSE 20Gm/30ML SOLN PO PRN (16:45)
[2019-05-18] MEDS ORDERED: DEXTROSE (50%) 50ML SYRG IV PRN (16:45)
[2019-05-18] MEDS ORDERED: MORPHINE SULF INJ 2 MG/ML SYRINGE 1ML IV PRN ×2 (16:45)
[2019-05-18] MEDS ORDERED: PROMETHAZINE HCL 25 MG/ML 1ML IV PRN (16:45)
[2019-05-18] MEDS ORDERED: NITROGLYCERIN 0.4 MG SL TAB SL PRN (16:45)
[2019-05-18] MEDS ORDERED: OSELTAMIVIR 75 MG CAP PO ONE (16:45)
[2019-05-18] MEDS ORDERED: levoFLOXacin 500MG 100 ML IV SCH (16:52)
[2019-05-18] MEDS ORDERED: SODIUM CHLORIDE 0.9% 500 ML IV ONE (17:00)
[2019-05-18] MEDS: NOREPINEPHRINE 8 MG/250ML KIT 250 ML IV SCH (17:00)
[2019-05-18] MEDS ORDERED: VANCOMYCIN PER PHARMACY 0 MG IV SCH (17:15)
[2019-05-18] MEDS ORDERED: VANCOMYCIN 1GM/250ML 250 ML IV ONE (17:15)
[2019-05-18] MEDS: ACCU-CHEK COMFORT CURVE STRIP VI SCH ×2 (17:19→22:30)
[2019-05-18] MEDS: InsuLIN REG 1unit/0.01ml Soln (100units/ml) SC SCH ×2 (17:26→22:20)
[2019-05-18] MEDS ORDERED: ENOXAPARIN SOD 100 MG/1 ML SYRINGE SC ONE (18:00)
[2019-05-18] MEDS: IPRATROPIUM BROM 0.5 MG/2.5ML INH SOL NEB SCH (18:24)
[2019-05-18] MEDS: ALBUTEROL SULF 2.5 MG/0.5ML(0.5%) NEB SOLN NEB SCH (18:24)
[2019-05-18] MEDS ORDERED: IOHEXOL 350 MG/ML 100ML IJ ONE (19:00)
--- NOTE | 2019-05-18 19:20 | NUR ---
OPEN ASSUMED CARE OF MALE PT SITTING IN CHAIR AT SIDE OF BED VISITING WITH FAMILY. PT A&O X 4. 100% AV PACED ON WORKFORCE DEVELOPMENT SPECIALIST. ASH MIDLINE IN PLACE WITH LEVOPHED INFUSING AT 3 MCG/MIN. 20G IV TO R. AC S/L. IV'S B&P. DRESSING TO L. UPPER CHEST S/P AICD PLACEMENT. CDI. DRESSING TO L. LAT CHEST S/P PREVIOUS CHEST TUBE INSERTION SITE. DRESSING CDI. 2+ PITTING EDEMA TO JACQUE LOWER EXTREMITIES. RADIAL AND PEDAL PULSES PALPABLE. PT DENIES PAIN AT THIS TIME. PT AWARE OF ORDERED CT ANGIO. CALL COELLO IN REACH. WILL CONTINUE TO MONITOR.
--- NOTE | 2019-05-18 19:30 | NUR ---
OFF UNIT FOR CT ANGIO PT TRANSPORTED OFF UNIT TO RADIOLOGY DEPT FOR CT ANGIO. PT TRANSPORTED VIA WHEELCHAIR WITH PORTABLE MONITOR AND PORTABLE O2.
--- NOTE | 2019-05-18 20:10 | NUR ---
FAMILY VISIT PT DAUGHTER TRENTON TO UNIT FOR VISIT. UPDATED REGARDING PLAN OF CARE.
--- NOTE | 2019-05-18 20:18 | NUR ---
DR CAMERON CALLED UNIT MD CAMERON CALLED UNIT. UPDATED MD REGARDING CURRENT GTT'S AND MEDICATIONS. ORDERS RECEIVED.
[2019-05-18] MEDS ORDERED: MAGNESIUM SULFATE 1GM/100ML 100 ML IV PRN (20:30)
[2019-05-18 21:59] LABS: Urine Bacteria NONE SEEN /hpf (None Seen); Urine Blood Negative /uL (Negative); Urine WBC 1 /hpf (0 - 3)
[2019-05-18] MEDS: SODIUM CHLOR 0.9% PF (SALINE LOCK) 10ML VIAL/SYR IV SCH (22:00)
[2019-05-18] MEDS: PIPERACILLIN-TAZOB 3.375GM 100 ML IV SCH (22:00)
[2019-05-18] MEDS ORDERED: CLINDAMYCIN 600MG IV 50 ML IV SCH (22:00)
[2019-05-18] MEDS ORDERED: OSELTAMIVIR 75 MG CAP PO SCH (22:00)
[2019-05-18 22:08] LABS: Urine Specific Gravity > 1.050 (1.001-1.035)
--- NOTE | 2019-05-18 22:10 | NUR ---
MD CALL DR CAMERON CALLED UNIT. UPDATED REGARDING CT ANGIO RESULTS. ORDERS RECEIVED.
[2019-05-18] MEDS ORDERED: MEXILETINE HCL 200 MG CAP PO ONE (22:15)
[2019-05-18] MEDS: traMADol HCL 50 MG TAB PO PRN (22:20)
[2019-05-18] MEDS: FLORASTOR (S. BOULARDII) 250 MG CAP PO SCH (22:20)
[2019-05-18] MEDS: DOBUTamine 1000MCG/ML 250 ML IV SCH (22:29)
[2019-05-18] MEDS ORDERED: MEXILETINE HYDROCHLORIDE 150 MG CAP PO ONE (22:30)
[2019-05-19] VITALS (70 sets, daily range): BP systolic 97–155; BP diastolic 57–94
[2019-05-19] MEDS: IPRATROPIUM BROM 0.5 MG/2.5ML INH SOL NEB SCH ×4 (00:39→18:29)
[2019-05-19] MEDS: ALBUTEROL SULF 2.5 MG/0.5ML(0.5%) NEB SOLN NEB SCH ×4 (00:39→18:29)
--- NOTE | 2019-05-19 04:00 | NUR ---
ASSESSMENT DONE. DENIES PAIN . OLD LEFT CHEST TUBE SITE DRESSING REMOVED. SITE CLEANED WITH CHLOROPREP AND REDRESSED WITH A FOAM DRESSING. PATIENT INFORMED ME THAT THE DOCTOR DID NOT WANT THE PACER SITE DRESSING REMOVED FOR 2 WEEKS. THEY ARE CURRENTLY CLEAN AND DRY. BOTH LEGS ARE SWOLLEN AND TIGHT.
[2019-05-19 04:28] LABS: Basophils # (auto) 0.1 10 ^3/uL (0-0.2); Basophils % (auto) 0.6 % (0.0-2.0); Eosinophils # (auto) 0.1 10 ^3/uL (0-0.8); Eosinophils % (auto) 0.6 % (0.0-7.0); Hemoglobin 12.3 g/dL (13.5-17.5); Lymphocytes # (auto) 1.3 10 ^3/uL (0.4-5.4); Mean Corpuscular Hemoglobin 29.9 pg (28.0-32.0); Mean Corpuscular Hgb Conc. 34.1 g/dL (32.0-36.0); Mean Corpuscular Volume 87.5 fL (80.0-100.0); Monocytes # (auto) 1.8 10 ^3/uL (0-1.3); Monocytes % (auto) 14.6 % (0.0-12.0); Neutrophils # (auto) 8.9 10 ^3/uL (1.6-8.6); Neutrophils % (auto) 73.2 % (37.0-80.0); Platelet Count (auto) 309 10^3/uL (140-450); Red Blood Cells 4.11 10^6/uL (4.5-5.90); Red Cell Distribution Width 14.3 % (11.8-14.3); White Blood Cell 12.1 10^3/uL (4.4-10.8)
[2019-05-19 04:51] LABS: Albumin 2.7 g/dL (3.4-5.0); Calcium 8.8 mg/dL (8.5-10.1); Potassium 3.8 mmol/L (3.5-5.1)
[2019-05-19 04:55] LABS: BUN/Creatinine Ratio 17.9; Bilirubin, Total 0.7 mg/dL (0.2-1.0); Total Protein 7.2 g/dL (6.4-8.2)
[2019-05-19] MEDS: VANCOMYCIN 1GM/250ML 250 ML IV SCH ×2 (05:00→18:37)
[2019-05-19] MEDS: SODIUM CHLOR 0.9% PF (SALINE LOCK) 10ML VIAL/SYR IV SCH ×3 (06:00→22:16)
[2019-05-19] MEDS: PIPERACILLIN-TAZOB 3.375GM 100 ML IV SCH ×3 (06:00→22:16)
[2019-05-19] MEDS: DOBUTamine 1000MCG/ML 250 ML IV SCH ×3 (06:00→22:39)
[2019-05-19] MEDS ORDERED: FUROSEMIDE 20 MG/2 ML VIAL IV SCH (06:00)
[2019-05-19] MEDS: ACCU-CHEK COMFORT CURVE STRIP VI SCH ×4 (06:36→22:17)
--- NOTE | 2019-05-19 06:45 | NUR ---
MEXITIL NOT AVAILABLE IN DRAWER. PHARMACY NOTIFIED
[2019-05-19] MEDS: InsuLIN REG 1unit/0.01ml Soln (100units/ml) SC SCH ×4 (06:52→22:00)
[2019-05-19] MEDS: POTASSIUM CHL 20MEQ/100ML 100 ML IV PRN (08:00)
--- NOTE | 2019-05-19 08:00 | NUR ---
INITIAL/ONGOING ASSESSMENT; Patient sitting up in chair at bedside. Potassium IV hung as per protocol, instructed patient to notify nursing staff if he experiences any pain or burning above the IV insertion site. Potassium set to infuse at 25 mL/hr as tolerated by patient. Breakfast tray provided.
[2019-05-19] MEDS ORDERED: ENOXAPARIN SOD 40 MG/0.4 ML SYRINGE SC SCH (10:00)
[2019-05-19] MEDS: FLORASTOR (S. BOULARDII) 250 MG CAP PO SCH ×2 (11:45→22:17)
[2019-05-19] MEDS: MEXILETINE HYDROCHLORIDE 150 MG CAP PO SCH ×2 (14:20→22:17)
[2019-05-19] MEDS: NOREPINEPHRINE 8 MG/250ML KIT 250 ML IV SCH (16:32)
--- NOTE | 2019-05-19 17:45 | NUR ---
ACTIVITY; Patient ambulated around nursing station x 6 laps. Patient connected to portable monitor, ambulated on room air. Patient did not have any arrhythmia, no SOB noted. Returned to chair at bedside.
--- NOTE | 2019-05-19 20:00 | NUR ---
ADMITTED FROM HOME WITH DYSPNEA. BILATERAL LEG SWELLING. UPGRADE TO AICD AT [facility] ON 05/10. 100% AV PACED. SBP STABLE. ON DOBUTAMINE DRIP AT FIXED RATE, 5MCG/KG/MIN. COARSE, NONPRODUCTIVE COUGH. HYPONATREMIA IS RESOLVING. LASIX ON HOLD. BILATERAL LEG SWELLING: SHINY, TIGHT , PITTING EDEMA. ROOM AIR. INCENTIVE SPIROMETER 1250-1600CC X 8. CHEST HURTS WHEN HE COUGHS. VOIDED 650CC OF SANDRA LIQUID. NO FEVER. HAS A RIGHT UPPER ARM MIDLINE AND A RIGHT AC 20 G JUST BELOW IT. ATE THE MAJORITY OF HIS DINNER. REVIEWED HIS MEDICATIONS FOR THE SHIFT. INFORMED HIM OF HIS PRN MEDICATIONS. REQUESTED A SLEEPING PILL WITH HIS 2200 MEDICATIONS.
--- NOTE | 2019-05-19 21:00 | NUR ---
WALKED 4 LAPS AROUND THE UNIT, ON MONITOR, OFF OXYGEN.
--- NOTE | 2019-05-19 22:00 | NUR ---
SITTING UP IN CHAIR. WITH THE SLIGHTEST RECLINE IN CHAIR, HE PANICS AND FEELS SHORTNESS OF BREATH. HE PLANS ON STAYING IN THE CHAIR TONIGHT. 100% AV PACED.
--- NOTE | 2019-05-19 23:29 | NUR ---
STOOD TO VOID. VOIDED AN ADEQUATE AMOUNT OF CLEAR SANDRA LIQUID.
[2019-05-20] VITALS (42 sets, daily range): BP systolic 65–166; BP diastolic 17–93
--- NOTE | 2019-05-20 | NUR ---
PAIN IN CHEST WHEN HE COUGHS ONLY. SITTING UP IN CHAIR. 100% AV PACED. NO FEVER. IV SITES SHOW NO REDNESS OR SWELLING.
--- NOTE | 2019-05-20 02:00 | NUR ---
SLEEPING IN CHAIR. VSS. 100% AV PACED. DENIES PAIN. BOTH LEGS HAVE 3+ PITTING EDEMA/SKIN IS TIGHT AND SHINY
--- NOTE | 2019-05-20 04:00 | NUR ---
DECIDED TO GET BACK INTO BED. HOB ELEVATED. HAD TROUBLE SLEEPING IN CHAIR. IVS SHOW NO REDNESS OR SWELLING. 3+ PITTING EDEMA PERSISTS IN BOTH LEGS.VOIDED IN URINAL. 100% AV PACED. NO FEVER. DOES NOT WANT TO LEAN BACK. ROOM AIR. IN NO RESPIRATORY DISTRESS.
[2019-05-20] MEDS: VANCOMYCIN 1GM/250ML 250 ML IV SCH ×3 (05:00→19:11)
[2019-05-20 05:45] LABS: Basophils # (auto) 0.1 10 ^3/uL (0-0.2); Basophils % (auto) 0.5 % (0.0-2.0); Eosinophils # (auto) 0.2 10 ^3/uL (0-0.8); Eosinophils % (auto) 2.2 % (0.0-7.0); Hematocrit 36.8 % (41.0-53.0); Lymphocytes # (auto) 1.6 10 ^3/uL (0.4-5.4); Lymphocytes % (auto) 14.7 % (10.0-50.0); Mean Corpuscular Hgb Conc. 32.8 g/dL (32.0-36.0); Mean Corpuscular Volume 88.7 fL (80.0-100.0); Monocytes # (auto) 1.3 10 ^3/uL (0-1.3); Monocytes % (auto) 12.1 % (0.0-12.0); Neutrophils # (auto) 7.6 10 ^3/uL (1.6-8.6); Neutrophils % (auto) 70.5 % (37.0-80.0); Nucleated Red Blood Cells % 0.1 %; Platelet Count (auto) 340 10^3/uL (140-450); Red Blood Cells 4.15 10^6/uL (4.5-5.90); Red Cell Distribution Width 14.6 % (11.8-14.3); White Blood Cell 10.8 10^3/uL (4.4-10.8)
[2019-05-20] MEDS: SODIUM CHLOR 0.9% PF (SALINE LOCK) 10ML VIAL/SYR IV SCH ×3 (05:48→22:25)
[2019-05-20] MEDS: PIPERACILLIN-TAZOB 3.375GM 100 ML IV SCH ×3 (06:00→22:23)
[2019-05-20] MEDS: MEXILETINE HYDROCHLORIDE 150 MG CAP PO SCH ×3 (06:00→22:25)
--- NOTE | 2019-05-20 06:00 | NUR ---
NO NEW ISSUES. 100% AV PACED. SENSING AND CAPTURING ACCURATELY. IVS SHOW NO REDNESS OR SWELLING
[2019-05-20 06:06] LABS: Calcium 8.7 mg/dL (8.5-10.1); Potassium 3.8 mmol/L (3.5-5.1)
[2019-05-20 06:07] LABS: BUN/Creatinine Ratio 12.9
[2019-05-20] MEDS: IPRATROPIUM BROM 0.5 MG/2.5ML INH SOL NEB SCH ×4 (06:30→18:19)
[2019-05-20] MEDS: ALBUTEROL SULF 2.5 MG/0.5ML(0.5%) NEB SOLN NEB SCH ×4 (06:31→18:19)
[2019-05-20] MEDS: ACCU-CHEK COMFORT CURVE STRIP VI SCH ×4 (06:41→22:25)
--- NOTE | 2019-05-20 06:58 | NUR ---
HAD A MOMENT WHERE HE JUST WANTED TO SIT ON THE EDGE OF THE BED.
[2019-05-20] MEDS: InsuLIN REG 1unit/0.01ml Soln (100units/ml) SC SCH ×4 (07:08→22:00)
[2019-05-20] MEDS: DOBUTamine 1000MCG/ML 250 ML IV SCH ×2 (08:00→16:05)
--- NOTE | 2019-05-20 10:01 | NUR ---
AT BEDSIDE: Dr. Carr at bedside, orders received.
--- NOTE | 2019-05-20 10:02 | NUR ---
ROUNDS: Patient very fatigued at this time, states that he feels as though he did not sleep any last night. Requests to be allowed to rest. Patient would like to remain in the recliner at bedside, provided additional pillows and elevated patient's LE's. Room darkened and door pulled closed to allow for patient rest. Will pass medications when patient awakens.
[2019-05-20] MEDS: POTASSIUM CHL 20MEQ/100ML 100 ML IV PRN ×2 (10:30→13:51)
[2019-05-20] MEDS: FLORASTOR (S. BOULARDII) 250 MG CAP PO SCH ×2 (11:47→22:24)
[2019-05-20] MEDS: COLCHICINE 0.6 MG CAP PO SCH ×2 (13:51→22:24)
[2019-05-20] MEDS ORDERED: ACETYLCYSTEINE 10 %(100MG/ML) SOL 4ML NEB SCH (14:00)
[2019-05-20] MEDS ORDERED: ALBUMIN 25% 100 ML IV ONE (16:30)
[2019-05-20] MEDS: FUROSEMIDE 20 MG/2 ML VIAL IV SCH (18:00)
[2019-05-20] MEDS: ACETYLCYSTEINE 10 %(100MG/ML) SOL 4ML NEB SCH (18:20)
--- NOTE | 2019-05-20 20:00 | NUR ---
ADMITTED FROM HOME WITH DYSPNEA AND BILATERAL LEG SWELLING. ON DOBUTAMINE AT 5 MCG/KG/MIN. ALERT. ORIENTED. LUNGS CLEAR. ROOM AIR. ABDOMEN SOFT. NO NAUSEA. LEFT SIDE WHERE HE HAD HIS AICD SURGERY: HURTS WHEN HE COUGHS. ATE DINNER. IV MIDLINE RIGHT UPPER ARM. 20G RIGHT UNDER THE MIDLINE. IV SITE SHOWS NO REDNESS OR SWELLING. STANDING. LASIX GIVEN AT CHANGE OF SHIFT. DIURESING. VOIDING IN URINAL. WENT THROUGH HIS MEDICATION LIST FOR THE NIGHT. REQUESTED A SLEEPING PILL AT 2200. NO ARM SWELLING. BILATERAL LEG SWELLING. PITTING, 2-3+ EDEMA. HAS GALO HOSE AND SOCKS ON. NO FEVER. 100% AV PACED.
--- NOTE | 2019-05-20 21:00 | NUR ---
SOMEHOW THE PERIPHERAL IV SLIPPED OUT. PRESSURE HELD. CLEANED SITE AND PLACED A DRESSING OVER IT. NEW 22 G STARTED IN THE RIGHT FOREARM. NEW GOWN, NEW SOCKS AND TEDS.
--- NOTE | 2019-05-20 22:00 | NUR ---
MEDS GIVEN. PATIENT IN CHAIR , RECLINING. HOT PACK ON LEFT SIDE. FEELS BETTER TODAY. INCENTIVE SPIROMETER 1500CC . 100% AV PACED. CONTRERAS ADDED LEXY
[2019-05-20] MEDS: TEMAZEPAM 15 MG CAP PO PRN (22:24)
[2019-05-20] MEDS: INSULIN LANTUS (GLARGINE) 1 /0.01ml (100units/ml) SC SCH (22:25)
[2019-05-20] MEDS ORDERED: POTASSIUM CHL 20MEQ/100ML 100 ML IV PRN (23:00)
--- NOTE | 2019-05-20 23:45 | NUR ---
SITTING ON EDGE OF BED. DECIDED TO TRY THE BED AND LIE ON HIS RIGHT SIDE, THE NONPAINFUL SIDE. ACCEPTED AN ULTRAM. MAGNESIUM SULFATE REPLACEMENT STARTED. MAG LEVEL 1.6. NO FEVER. LUNGS CLEAR. ROOM AIR. ABDOMEN SOFT. STILL 100% AV PACED. SBP STABLE. VOIDED CLEAR YELLOW LIQUID. HOT PACK OFF. RESECURED HIS RIGHT ARM IV.
[2019-05-20] MEDS: MAGNESIUM SULFATE 1GM/100ML 100 ML IV PRN (23:50)
[2019-05-21] VITALS (16 sets, daily range): BP systolic 105–159; BP diastolic 54–75
[2019-05-21] MEDS: traMADol HCL 50 MG TAB PO PRN ×2 (00:02→20:58)
[2019-05-21] MEDS: MAGNESIUM SULFATE 1GM/100ML 100 ML IV PRN ×4 (00:10→02:59)
--- NOTE | 2019-05-21 00:19 | NUR ---
RT NOTE: PT REFUSED MED NEB TX @ THIS TIME. NO SOB OR DISTRESS NOTED. SPO2 96% ON ROOM AIR, HR 74, RR 16. PT RESTING COMFORTABLY. WILL CONT TO MONITOR PT. WILL RESUME MORNING MED NEB TX WITH DAYSHIFT RT.
[2019-05-21] MEDS: DOBUTamine 1000MCG/ML 250 ML IV SCH (00:37)
[2019-05-21] MEDS: VANCOMYCIN 1GM/250ML 250 ML IV SCH ×2 (02:01→09:19)
--- NOTE | 2019-05-21 02:04 | NUR ---
MAGNESIUM REPLACEMENT CONTINUING. NO CHANGE IN HEART RHYTHM. HAS BEEN SLEEPING ON HIS RIGHT SIDE.
--- NOTE | 2019-05-21 04:00 | NUR ---
PATIENT HAD A BRIEF TINY RIGHT NARE NOSE BLEED. STANDING TO VOID RIGHT NOW. STATED THAT HE DID GET A LITTLE SLEEP. INFORMED HIM THAT HE WOULD BE TRANSFERRING TO [facility]. 100% AV PACED. IV SITES SHOW NO REDNESS OR SWELLING. TEDS ON. SOCKS ON. NO NAUSEA. SPEECH CLEAR. MENTATION CLEAR.
--- NOTE | 2019-05-21 04:49 | NUR ---
REPORT CALLED TO TREY
[2019-05-21] MEDS: PIPERACILLIN-TAZOB 3.375GM 100 ML IV SCH ×3 (05:07→21:26)
[2019-05-21] MEDS: COLCHICINE 0.6 MG CAP PO SCH ×3 (05:07→20:56)
[2019-05-21] MEDS: MEXILETINE HYDROCHLORIDE 150 MG CAP PO SCH ×3 (05:08→20:56)
[2019-05-21] MEDS: SODIUM CHLOR 0.9% PF (SALINE LOCK) 10ML VIAL/SYR IV SCH ×3 (05:08→20:59)
[2019-05-21] MEDS: FUROSEMIDE 20 MG/2 ML VIAL IV SCH ×2 (05:08→17:46)
--- NOTE | 2019-05-21 05:30 | NUR ---
to angélica per wheelchair
--- NOTE | 2019-05-21 05:35 | NUR ---
RECEIVED PATIENT Patient arrived to room 261 via wheelchair. Patient able to transfer from wheelchair to chair independently and without incident. Patient connected monitors, physical assessment done (see interventions), and vitals taken (see vitals). Call light within reach, informed patient to call when ready to get in bed. Patient verbalized understanding. Will continue to monitor
--- NOTE | 2019-05-21 05:52 | NUR ---
Placed patient in chair per his request. Attached leads to monitor. 100% av paced. Pale. Oriented. Unable to draw labs from the midline catheter. Call placed for lab to draw his blood.
[2019-05-21] MEDS: ALBUTEROL SULF 2.5 MG/0.5ML(0.5%) NEB SOLN NEB SCH ×4 (06:00→19:30)
[2019-05-21] MEDS: IPRATROPIUM BROM 0.5 MG/2.5ML INH SOL NEB SCH ×4 (06:00→19:31)
[2019-05-21] MEDS: ACETYLCYSTEINE 10 %(100MG/ML) SOL 4ML NEB SCH ×4 (06:00→19:31)
[2019-05-21] MEDS: InsuLIN REG 1unit/0.01ml Soln (100units/ml) SC SCH ×4 (06:54→21:07)
[2019-05-21] MEDS: ACCU-CHEK COMFORT CURVE STRIP VI SCH ×5 (06:54→21:26)
[2019-05-21] MEDS: INSULIN LANTUS (GLARGINE) 1 /0.01ml (100units/ml) SC SCH ×2 (06:54→21:05)
[2019-05-21 07:09] LABS: Calcium 8.8 mg/dL (8.5-10.1)
--- NOTE | 2019-05-21 07:30 | NUR ---
Opening Shift Note Assumed care of patient, awake and alert. No S/S of distress/SOB or pain. Patient saturation 96% at room air. See interventions for complete assessment. Bed locked on low position, side rails up x2, bed alarms on at all times, call william within reach, instructed on POC and to call for assist PRN, will continue to monitor for changes Q1hr and PRN.
[2019-05-21] MEDS: FLORASTOR (S. BOULARDII) 250 MG CAP PO SCH ×2 (09:19→20:56)
[2019-05-21] MEDS ORDERED: POTASSIUM CHL 20 Meq TABLET PO ONE (09:40)
[2019-05-21] MEDS: POTASSIUM CHL 20 Meq TABLET PO ONE ×2 (09:45→09:46)
--- NOTE | 2019-05-21 11:56 | NUR ---
Dr Almaraz at bedside, updated on patient's status. Patient seen and examined. Will carry out new orders.
[2019-05-21] MEDS ORDERED: GLIMEPIRIDE 2 MG TAB PO ONE (12:30)
--- NOTE | 2019-05-21 12:30 | NUR ---
Dr Frank at bedside, updated on patient's status. Patient seen and examined. Will carry out new orders.
--- NOTE | 2019-05-21 16:47 | NUR ---
RECEIVED REPORT WILL AWAIT PATIENT.
--- NOTE | 2019-05-21 17:53 | NUR ---
ALLEN pt transferred to floor LITZY MCFARLAND transfered to Tele floor via wheelchair on jewelry appraiser . All patient medications and personal belongings transfered with patient to receiving floor. Patient care transfered to Laurel MEEKS.
--- NOTE | 2019-05-21 18:06 | NUR ---
RECEIVED PATIENT TO THE FLOOR ALERT AND ORIENTED X 4 AMBULATORY. NO SIGNS AND SYMPTOMS OF DISTRESS NOTED. INSTRUCTED THE PATIENT ON THE PLAN OF CARE AND TO CALL IF ANYTHING IS NEEDED. ALL QUESTIONS AND CONCERNS ADDRESSED. WILL CONTINUE TO MONITOR.
[2019-05-21] MEDS: TEMAZEPAM 15 MG CAP PO PRN (20:57)
[2019-05-21] MEDS: POTASSIUM CHL 20 Meq TABLET PO SCH (20:58)
--- NOTE | 2019-05-21 20:58 | NUR ---
Pain Management Pt medicated for c/o incision pain 06/21 with tramadol, will continue to monitor
[2019-05-22] MEDS: IPRATROPIUM BROM 0.5 MG/2.5ML INH SOL NEB SCH ×4 (00:44→18:37)
[2019-05-22] MEDS: ALBUTEROL SULF 2.5 MG/0.5ML(0.5%) NEB SOLN NEB SCH ×4 (00:44→18:37)
[2019-05-22] MEDS: ACETYLCYSTEINE 10 %(100MG/ML) SOL 4ML NEB SCH ×4 (00:45→18:37)
[2019-05-22 02:00] VITALS: BP 141/73
[2019-05-22 05:00] VITALS: BP 112/67
[2019-05-22] MEDS: SODIUM CHLOR 0.9% PF (SALINE LOCK) 10ML VIAL/SYR IV SCH ×2 (06:00→15:01)
[2019-05-22 06:03] LABS: Potassium 3.9 mmol/L (3.5-5.1)
[2019-05-22 06:09] LABS: BUN/Creatinine Ratio 17.7; Magnesium 1.8 mg/dL (1.6-2.6)
[2019-05-22] MEDS: InsuLIN REG 1unit/0.01ml Soln (100units/ml) SC SCH ×2 (06:13→11:22)
[2019-05-22] MEDS: ACCU-CHEK COMFORT CURVE STRIP VI SCH ×2 (06:14→11:22)
[2019-05-22] MEDS: MEXILETINE HYDROCHLORIDE 150 MG CAP PO SCH ×2 (07:00→15:09)
[2019-05-22] MEDS ORDERED: GLIMEPIRIDE 2 MG TAB PO SCH (07:00)
[2019-05-22] MEDS: INSULIN LANTUS (GLARGINE) 1 /0.01ml (100units/ml) SC SCH (07:00)
[2019-05-22] MEDS: PIPERACILLIN-TAZOB 3.375GM 100 ML IV SCH (07:02)
[2019-05-22] MEDS: COLCHICINE 0.6 MG CAP PO SCH ×2 (07:02→15:09)
[2019-05-22] MEDS: FUROSEMIDE 20 MG/2 ML VIAL IV SCH (07:04)
[2019-05-22 08:00] VITALS: BP 129/76
[2019-05-22] MEDS: POTASSIUM CHL 20 Meq TABLET PO SCH (10:55)
[2019-05-22] MEDS: FLORASTOR (S. BOULARDII) 250 MG CAP PO SCH (10:55)
[2019-05-22] MEDS ORDERED: MEX150C PO (11:04)
[2019-05-22] MEDS ORDERED: AMIO200T33 PO (11:06)
[2019-05-22 12:00] VITALS: BP 129/77
[2019-05-22 16:22] VITALS: BP 112/67
[2019-05-22 16:36] VITALS: BP 127/72
== END 2019-05-22 18:00 | disposition home or self-care (01) | DRG 291 ==
LOC: ER 14:07 → TELE 14:08 → ICU WEST 18:09 → DOU IN ICU 05-21 05:50 → TELE-WESTW 05-21 17:55
PROVIDERS: ADMIT Internal Medicine; ATTEND Internal Medicine
DX: I11.0 Hypertensive heart disease with heart failure (principal); J18.9 Pneumonia, unspecified organism; J96.00 Acute respiratory failure, unspecified whether with hypoxia or hypercapnia; J98.11 Atelectasis; E87.1 Hypo-osmolality and hyponatremia; E11.9 Type 2 diabetes mellitus without complications; I50.23 Acute on chronic systolic (congestive) heart failure; E78.5 Hyperlipidemia, unspecified; J45.909 Unspecified asthma, uncomplicated; I95.9 Hypotension, unspecified; Z79.84 Long term (current) use of oral hypoglycemic drugs; Z95.810 Presence of automatic (implantable) cardiac defibrillator; Z87.09 Personal history of other diseases of the respiratory system; Z82.49 Family history of ischemic heart disease and other diseases of the circulatory system; Z83.3 Family history of diabetes mellitus; Z79.899 Other long term (current) drug therapy
CPT/HCPCS: 36415; 71045; 71275; 80048; 80053; 80061; 80202; 81001; 82550; 82962; 83036; 83605; 83735; 83880; 84484; 85025; 85379; 85652; 87040; 87081; 87804; 93005; 93970; 94640; 96365; 96368; 99291; G0378; J1815; J1956; J2543; J3480

== ENCOUNTER 2019-11-21 09:07 | Inpatient (IN) | payer BC ==
[~2019-11-21] VITALS: Ht 182.9 cm; Wt 99.0 kg
[~2019-11-21 09:07] MED LIST changes: +GLIM-5 PO; -GLIM1TAB3 PO; -LISI10TA6 PO; -LOSA-69 PO; +MEX150C PO
--- NOTE | 2019-11-21 09:55 | NUR ---
Received pt as a direct admit, inserted a new IV to Lt forearm 22 G, pt placed on tele monitor 32, pt's rhythm paced 83, will call Dr. Frank to see pt.
[2019-11-21] MEDS ORDERED: NITROGLYCERIN 0.4 MG SL TAB SL PRN (10:00)
[2019-11-21] MEDS: ASPirin 81 mg TAB PO SCH (10:00)
[2019-11-21] MEDS ORDERED: POTASSIUM CHL 20 Meq TABLET PO SCH (10:00)
[2019-11-21] MEDS ORDERED: CORLANOR 5 MG PO SCH (10:00)
[2019-11-21] MEDS ORDERED: DEXTROSE (50%) 50ML SYRG IV PRN (10:00)
[2019-11-21] MEDS ORDERED: MORPHINE SULF INJ 2 MG/ML SYRINGE 1ML IV PRN (10:00)
[2019-11-21] MEDS: MEXILETINE HYDROCHLORIDE 150 MG CAP PO SCH ×2 (10:00→21:30)
[2019-11-21] MEDS ORDERED: FUROSEMIDE 40 MG TAB PO SCH (10:00)
--- NOTE | 2019-11-21 10:00 | NUR ---
Dr. Frank at unit to see pt. Doctor discussed the plan of care with pt.
[2019-11-21] MEDS ORDERED: POTA8TAB2 PO (10:09)
[2019-11-21] MEDS ORDERED: MAGN500T11 PO (10:09)
[2019-11-21] MEDS ORDERED: ASPI-543 PO (10:09)
[2019-11-21] MEDS ORDERED: ESCI10TA PO (10:09)
[2019-11-21] MEDS ORDERED: IVAB1.7T PO (10:09)
[2019-11-21] MEDS ORDERED: FURO40TA4 PO (10:09)
[2019-11-21] MEDS ORDERED: POTASSIUM CHL 20 Meq TABLET PO ONE (10:15)
[2019-11-21] MEDS ORDERED: FUROSEMIDE 40 MG/4 ML VIAL IV ONE (10:15)
[2019-11-21 10:37] LABS: Basophils # (auto) 0.1 10 ^3/uL (0-0.2); Basophils % (auto) 0.7 % (0.0-2.0); Eosinophils # (auto) 0.2 10 ^3/uL (0-0.8); Eosinophils % (auto) 1.4 % (0.0-7.0); Hematocrit 40.5 % (41.0-53.0); Hemoglobin 13.3 g/dL (13.5-17.5); Lymphocytes # (auto) 1.5 10 ^3/uL (0.4-5.4); Lymphocytes % (auto) 13.2 % (10.0-50.0); Mean Corpuscular Hgb Conc. 32.9 g/dL (32.0-36.0); Mean Corpuscular Volume 85.1 fL (80.0-100.0); Monocytes # (auto) 0.7 10 ^3/uL (0-1.3); Monocytes % (auto) 6.4 % (0.0-12.0); Neutrophils # (auto) 9.1 10 ^3/uL (1.6-8.6); Neutrophils % (auto) 78.3 % (37.0-80.0); Nucleated Red Blood Cells % 0.1 %; Platelet Count (auto) 369 10^3/uL (140-450); Red Blood Cells 4.76 10^6/uL (4.5-5.90); Red Cell Distribution Width 13.9 % (11.8-14.3); White Blood Cell 11.6 10^3/uL (4.4-10.8)
[2019-11-21 10:55] LABS: INR 1.13 (0.9-1.15); Partial Thromboplastin Time 30.3 sec (23.0-31.2)
[2019-11-21 10:59] LABS: Albumin 3.1 g/dL (3.4-5.0); Anion Gap 8 (5-15); Blood Urea Nitrogen 16 mg/dL (7-18); Calcium 8.9 mg/dL (8.5-10.1); Carbon Dioxide 25 mmol/L (21-32); Chloride 93 mmol/L (98-107); Glucose 180 mg/dL (74-106); Magnesium 1.8 mg/dL (1.6-2.6); Potassium 4.3 mmol/L (3.5-5.1); Sodium 126 mmol/L (136-145)
[2019-11-21 11:05] LABS: Alanine Aminotransferase 38 U/L (16-61); Alkaline Phosphatase 165 U/L (45-117); Aspartate Aminotransferase 24 U/L (15-37); Bilirubin, Total 0.6 mg/dL (0.2-1.0); GFR African American 98 mL/min; GFR Non-African American 81 mL/min
[2019-11-21] MEDS: ACCU-CHEK COMFORT CURVE STRIP VI SCH ×3 (11:22→21:30)
[2019-11-21] MEDS: InsuLIN REG 1unit/0.01ml Soln (100units/ml) SC SCH ×3 (11:30→21:30)
[2019-11-21 13:00] VITALS: BP 121/77
--- NOTE | 2019-11-21 15:45 | NUR ---
Received call from Dr. Coto / horticultural specialty grower inside to inquire on pt's condition, orders received for an abdominal ultrasound, and for Farxiga 10 mg po daily.
--- NOTE | 2019-11-21 16:20 | NUR ---
As per pharmacy Farxiga 10 mg is not available at the hospital or a generic form of Farxiga, Farxiga ordered through [facility] pharmacy, [facility] pharmacy will order the medication and deliver it to the pt's room for the hospital to dispense the medication.
[2019-11-21 17:00] VITALS: BP 115/70
--- NOTE | 2019-11-21 17:16 | NUR ---
Received a call from Dr. Frank, order received for Paul to be d/c.
--- NOTE | 2019-11-21 17:25 | NUR ---
Received a call from Dr. Coto / special education teachers, order received for Paul put back on.
[2019-11-21] MEDS ORDERED: ALPRAZolam 0.25 MG TAB PO ONE (17:45)
--- NOTE | 2019-11-21 17:46 | NUR ---
Called hospitalist as per pt's request to get Xanax ordered, spoke to Dr. Garcia, orders received for Xanax 0.25 mg for a one time dose for tonight for pt to be able to sleep.
--- NOTE | 2019-11-21 19:32 | NUR ---
Opening Shift Note Assumed care of patient, awake and alert x 4. No S/S of distress/SOB. Bed is in lowest position and locked. Call light within reach. Board updated. Tele box number matches monitor and leads are in correct placement. Instructed on POC and to call for assist PRN, will continue to monitor for changes Q1hr and PRN.
[2019-11-21 19:54] LABS: Urine Bacteria FEW /hpf (None Seen); Urine Blood Negative /uL (Negative); Urine Specific Gravity 1.009 (1.001-1.035); Urine Sperm PRESENT /hpf (None Seen); Urine WBC 1 /hpf (0 - 3)
[2019-11-21] MEDS: ATORVASTATIN 20 MG TAB PO SCH (21:29)
[2019-11-21] MEDS ORDERED: IVABRADINE 5 MG PO SCH (22:00)
[2019-11-21 22:17] VITALS: BP 125/81
[2019-11-22 05:20] LABS: Basophils # (auto) 0 10 ^3/uL (0-0.2); Basophils % (auto) 0.4 % (0.0-2.0); Eosinophils # (auto) 0.2 10 ^3/uL (0-0.8); Eosinophils % (auto) 1.8 % (0.0-7.0); Hematocrit 39.2 % (41.0-53.0); Hemoglobin 12.8 g/dL (13.5-17.5); Lymphocytes # (auto) 1.8 10 ^3/uL (0.4-5.4); Lymphocytes % (auto) 17.4 % (10.0-50.0); Mean Corpuscular Hemoglobin 27.8 pg (28.0-32.0); Mean Corpuscular Hgb Conc. 32.7 g/dL (32.0-36.0); Mean Corpuscular Volume 84.9 fL (80.0-100.0); Monocytes # (auto) 0.7 10 ^3/uL (0-1.3); Monocytes % (auto) 7.3 % (0.0-12.0); Neutrophils # (auto) 7.5 10 ^3/uL (1.6-8.6); Neutrophils % (auto) 73.1 % (37.0-80.0); Platelet Count (auto) 388 10^3/uL (140-450); Red Blood Cells 4.62 10^6/uL (4.5-5.90); Red Cell Distribution Width 14.3 % (11.8-14.3); White Blood Cell 10.2 10^3/uL (4.4-10.8)
[2019-11-22 05:28] VITALS: BP 129/81
[2019-11-22 05:41] LABS: BUN/Creatinine Ratio 15.9; Calcium 9.2 mg/dL (8.5-10.1); Potassium 4.2 mmol/L (3.5-5.1)
[2019-11-22] MEDS: InsuLIN REG 1unit/0.01ml Soln (100units/ml) SC SCH ×4 (06:40→21:25)
[2019-11-22] MEDS: ACCU-CHEK COMFORT CURVE STRIP VI SCH ×4 (06:41→21:09)
--- NOTE | 2019-11-22 08:00 | NUR ---
Opening Shift Note Assumed care of patient, awake and alert. No S/S of distress/SOB or pain. Instructed on POC and to call for assist PRN, will continue to monitor for changes Q1hr and PRN.
[2019-11-22 09:00] VITALS: BP 122/84
[2019-11-22] MEDS: ASPirin 81 mg TAB PO SCH (09:49)
[2019-11-22] MEDS: POTASSIUM CHL 20 Meq TABLET PO SCH (09:49)
[2019-11-22 10:00] VITALS: BP_SYST 118; BP_SYST 121; BP_SYST 126; BP_DIAS 74; BP_DIAS 76; BP_DIAS 78
[2019-11-22] MEDS ORDERED: FUROSEMIDE 40 MG/4 ML VIAL IV SCH (10:00)
[2019-11-22] MEDS: MEXILETINE HYDROCHLORIDE 150 MG CAP PO SCH ×2 (11:37→21:09)
[2019-11-22] MEDS: FUROSEMIDE 40 MG TAB PO SCH (11:37)
[2019-11-22 13:00] VITALS: BP 121/84
[2019-11-22] MEDS: FARXIGA 10 MG TAB PO SCH (13:03)
[2019-11-22 17:24] VITALS: BP 110/76
[2019-11-22] MEDS: ATORVASTATIN 20 MG TAB PO SCH (21:09)
[2019-11-22] MEDS: TEMAZEPAM 15 MG CAP PO PRN (21:10)
[2019-11-22 21:44] VITALS: BP 125/77
[2019-11-23] VITALS (10 sets, daily range): BP systolic 112–138; BP diastolic 71–93
[2019-11-23] MEDS: InsuLIN REG 1unit/0.01ml Soln (100units/ml) SC SCH ×4 (05:56→21:16)
[2019-11-23] MEDS: ACCU-CHEK COMFORT CURVE STRIP VI SCH ×4 (05:57→21:00)
--- NOTE | 2019-11-23 05:58 | NUR ---
Holding insulin for blood glucose of 154 mg/dl because patient is NPO pending TERESA later in the morning. Will continue to assess.
[2019-11-23 06:11] LABS: Potassium 4.6 mmol/L (3.5-5.1)
--- NOTE | 2019-11-23 07:50 | NUR ---
Patient sitting in chair at bedside; denies pain at this time. Patient stable.
[2019-11-23] MEDS: ASPirin 81 mg TAB PO SCH ×2 (10:05→16:23)
[2019-11-23] MEDS: POTASSIUM CHL 20 Meq TABLET PO SCH ×2 (10:05→16:22)
[2019-11-23] MEDS: FUROSEMIDE 40 MG TAB PO SCH ×2 (10:05→16:23)
[2019-11-23] MEDS: FARXIGA 10 MG TAB PO SCH ×2 (10:05→16:23)
[2019-11-23] MEDS: MEXILETINE HYDROCHLORIDE 150 MG CAP PO SCH ×2 (10:05→20:59)
--- NOTE | 2019-11-23 11:50 | NUR ---
Patient sitting in chair at bedside. Checked blood sugar: 146 mg/dl - pt NPO, no coverage given. Patient stable at this time.
--- NOTE | 2019-11-23 12:10 | NUR ---
Patient taken to Envelope Cutter for TERESA.
[2019-11-23] MEDS ORDERED: fentaNYL CITRATE 100 MCG/2 ML VL IV ONE (12:15)
[2019-11-23] MEDS ORDERED: LIDOCAINE VISCOUS 2% 15ML UD PO ONE (12:15)
[2019-11-23] MEDS ORDERED: diphenhdrAMINE HCL 50 MG/1 ML VL IV ONE (12:15)
[2019-11-23] MEDS ORDERED: MIDAZOLAM HCL 5 MG/ML-1ML VIAL IV ONE (12:15)
--- NOTE | 2019-11-23 12:16 | NUR ---
Nutrition Assessment Notes Please see attached link for complete assessment Est energy needs BW 99 [id number] kcal (23-25kcal/kg B), Est protein needs :99-108g (1-1.1g/kg BW). Will reassess prn Addendum: 11/23/19 at [address] Amended: Links added.
[2019-11-23] MEDS ORDERED: MIDAZOLAM HCL 1MG/1ML-2 ML VIAL ONE (12:44)
--- NOTE | 2019-11-23 13:30 | NUR ---
Pt resting comfortably. Pt drowsy but awakes when aroused. No s/s of discomfort/distress. Pt sitting in semi fowlers position. Will cont to monitor.
--- NOTE | 2019-11-23 13:45 | NUR ---
Pt a/o x4. Pt denies pain and nausea. Pt VS WNL. Will cont to monitor.
[2019-11-23] MEDS ORDERED: metOLazone 5 MG TAB PO ONE (14:00)
--- NOTE | 2019-11-23 14:10 | NUR ---
Pt stable for transfer. VS wnl. Pt a/o x4. Will prepare to transfer patient to room and cont to monitor.
--- NOTE | 2019-11-23 14:30 | NUR ---
Pt transported to 206 in stable condition. No s/s of discomfort/distress. Pt a/o x4. RN at bedside. Bed to lowest position, bed alarm on, call light at reach. No incidents to report. Care endorsed to primary RN.
--- NOTE | 2019-11-23 14:40 | NUR ---
Patient returned to unit in stable condition.
--- NOTE | 2019-11-23 16:25 | NUR ---
Patient resting comfortably in bed with no complaint of pain. Medications given per order. Patient stable.
--- NOTE | 2019-11-23 17:31 | NUR ---
Checked blood sugar: 198 mg/dl - will cover per sliding scale. Patient sitting on side of bed with no complaint of pain.
--- NOTE | 2019-11-23 17:42 | NUR ---
Covered per sliding scale. Patient sitting in chair at bedside. Patient stable at this time.
--- NOTE | 2019-11-23 18:30 | NUR ---
Patient sitting in chair at bedside. Patient stable throughout shift.
[2019-11-23] MEDS: TEMAZEPAM 15 MG CAP PO PRN (20:58)
[2019-11-23] MEDS: ATORVASTATIN 20 MG TAB PO SCH (20:59)
--- NOTE | 2019-11-24 00:28 | NUR ---
Patient refused lactulose. States he has had three bowel movements today after receiving first dose of lactulose. He does not want any more. Addendum: 11/24/19 at 0030 by KRISHAN CARLOS RN Wrong patient. Disregard
[2019-11-24 05:00] VITALS: BP 108/67
[2019-11-24] MEDS: ACCU-CHEK COMFORT CURVE STRIP VI SCH ×2 (06:07→12:45)
[2019-11-24] MEDS: InsuLIN REG 1unit/0.01ml Soln (100units/ml) SC SCH ×2 (06:09→12:50)
--- NOTE | 2019-11-24 07:30 | NUR ---
Opening Shift Note Received report from restaurant shift leader RN. Assumed care of patient, awake and alert. No S/S of distress/SOB or pain. Instructed on POC and to calling for assistance PRN, will continue to monitor for changes.
[2019-11-24 09:00] VITALS: BP 129/84
[2019-11-24] MEDS: ASPirin 81 mg TAB PO SCH (09:45)
[2019-11-24] MEDS: POTASSIUM CHL 20 Meq TABLET PO SCH (09:46)
[2019-11-24] MEDS: FUROSEMIDE 40 MG TAB PO SCH (09:46)
[2019-11-24] MEDS: FARXIGA 10 MG TAB PO SCH (09:47)
[2019-11-24] MEDS: MEXILETINE HYDROCHLORIDE 150 MG CAP PO SCH (09:47)
[2019-11-24] MEDS ORDERED: DAPA1TAB4 PO (10:08)
[2019-11-24 11:39] VITALS: BP 129/84
[2019-11-24 12:00] VITALS: BP 126/80
--- NOTE | 2019-11-24 12:55 | NUR ---
DISCHARGE Discharge instructions given as ordered. Encouraged pt to follow up with PMD and cardiology as instructed. All questions and concerns addressed. Patient verbalized understanding. Medication reconciliation form completed and copy given to patient. Home medications held in Pharmacy returned to patient at this time. IV removed with catheter intact, pressure dressing applied. Pt tolerated well. Telemetry unit cleaned and returned to ICU. Patient did not want wheelchair, pt ambulated to vehicle with all personal belongings, accompanied by staff. Pt tolerated walk to vehicle well. Pt stable and no distress noted at time of departure.
== END 2019-11-24 13:15 | disposition home or self-care (01) | DRG 292 ==
LOC: TELE-CENTR 09:07
PROVIDERS: ADMIT Internal Medicine; ATTEND Internal Medicine
PROC: B246ZZ4 Ultrasonography of Right and Left Heart, Transesophageal (ICD-10-PCS; principal; 2019-11-23)
DX: I11.0 Hypertensive heart disease with heart failure (principal); E87.1 Hypo-osmolality and hyponatremia; N39.0 Urinary tract infection, site not specified; E11.65 Type 2 diabetes mellitus with hyperglycemia; I50.43 Acute on chronic combined systolic (congestive) and diastolic (congestive) heart failure; I42.8 Other cardiomyopathies; E78.5 Hyperlipidemia, unspecified; Z82.49 Family history of ischemic heart disease and other diseases of the circulatory system; Z83.3 Family history of diabetes mellitus; Z95.810 Presence of automatic (implantable) cardiac defibrillator
CPT/HCPCS: 36415; 71045; 76700; 80048; 80053; 81001; 82962; 83036; 83735; 83880; 84484; 85025; 85610; 85730; 93306; 93312; G0378; J1815; J2250

== ENCOUNTER 2020-06-19 18:32 | Inpatient (IN) | payer BC ==
[~2020-06-19] VITALS: Ht 182.9 cm; Wt 179.1 kg
[~2020-06-19 18:32] MED LIST changes: +ASPI-543 PO; +DAPA1TAB4 PO; +ESCI10TA PO; +FURO40TA4 PO; -GEMF600T PO; +IVAB1.7T PO; +MAGN500T11 PO; +POTA8TAB2 PO
[2020-06-19] MEDS ORDERED: methylPREDNISolone SOD SUCC 125 MG/2 ML VL IV ONE (18:45)
[2020-06-19 19:06] LABS: Basophils # (auto) 0 10 ^3/uL (0-0.2); Basophils % (auto) 0.3 % (0.0-2.0); Eosinophils # (auto) 0 10 ^3/uL (0-0.8); Eosinophils % (auto) 0.1 % (0.0-7.0); Hematocrit 46.9 % (41.0-53.0); Hemoglobin 15.8 g/dL (13.5-17.5); Lymphocytes # (auto) 0.8 10 ^3/uL (0.4-5.4); Lymphocytes % (auto) 9.3 % (10.0-50.0); Mean Corpuscular Hemoglobin 28.4 pg (28.0-32.0); Mean Corpuscular Hgb Conc. 33.6 g/dL (32.0-36.0); Mean Corpuscular Volume 84.5 fL (80.0-100.0); Monocytes # (auto) 0.9 10 ^3/uL (0-1.3); Neutrophils # (auto) 7.1 10 ^3/uL (1.6-8.6); Neutrophils % (auto) 80.3 % (37.0-80.0); Nucleated Red Blood Cells % 0.1 %; Platelet Count (auto) 206 10^3/uL (140-450); Red Blood Cells 5.54 10^6/uL (4.5-5.90); Red Cell Distribution Width 16.5 % (11.8-14.3); White Blood Cell 8.8 10^3/uL (4.4-10.8)
[2020-06-19 19:33] LABS: Alanine Aminotransferase 69 U/L (16-61); Albumin 3.4 g/dL (3.4-5.0); Anion Gap 12 (5-15); Blood Urea Nitrogen 35 mg/dL (7-18); Calcium 8.9 mg/dL (8.5-10.1); Carbon Dioxide 26 mmol/L (21-32); Chloride 89 mmol/L (98-107); Glucose 270 mg/dL (74-106); Potassium 4.4 mmol/L (3.5-5.1); Sodium 127 mmol/L (136-145)
[2020-06-19 19:42] LABS: Alkaline Phosphatase 105 U/L (45-117); Aspartate Aminotransferase 62 U/L (15-37); Bilirubin, Total 1.4 mg/dL (0.2-1.0); CRP High Sensitivity 7.52 mg/dL (< 0.3); GFR African American 54 mL/min; GFR Non-African American 45 mL/min
[2020-06-19] MEDS ORDERED: DEXTROSE (50%) 50ML SYRG IV PRN (19:45)
[2020-06-19] MEDS ORDERED: MORPHINE SULF INJ 2 MG/ML SYRINGE 1ML IV PRN (19:45)
[2020-06-19] MEDS ORDERED: NITROGLYCERIN 0.4 MG SL TAB SL PRN (19:45)
[2020-06-19] MEDS ORDERED: FUROSEMIDE 40 MG/4 ML VIAL IV ONE (20:00)
[2020-06-19] MEDS: IVABRADINE 5 MG TAB PO SCH (21:49)
[2020-06-19] MEDS: ATORVASTATIN 20 MG TAB PO SCH (21:50)
[2020-06-19] MEDS: MEXILETINE HYDROCHLORIDE 150 MG CAP PO SCH (21:50)
[2020-06-19] MEDS: ACCU-CHEK COMFORT CURVE STRIP VI SCH (21:57)
[2020-06-19] MEDS: InsuLIN REG 1unit/0.01ml Soln (100units/ml) SC SCH (21:57)
[2020-06-19 23:40] VITALS: BP 122/78
[2020-06-20 00:58] LABS: Urine Bacteria NONE SEEN /hpf (None Seen); Urine Blood TRACE /uL (Negative); Urine Specific Gravity 1.015 (1.001-1.035); Urine WBC <1 /hpf (0 - 3)
[2020-06-20 05:00] VITALS: BP 119/84
[2020-06-20] MEDS: ACCU-CHEK COMFORT CURVE STRIP VI SCH ×4 (06:36→23:02)
[2020-06-20] MEDS: InsuLIN REG 1unit/0.01ml Soln (100units/ml) SC SCH ×4 (06:37→22:00)
[2020-06-20 09:00] VITALS: BP 104/67
[2020-06-20] MEDS: IVABRADINE 5 MG TAB PO SCH ×2 (09:48→23:01)
[2020-06-20] MEDS: MEXILETINE HYDROCHLORIDE 150 MG CAP PO SCH ×2 (09:48→23:01)
[2020-06-20] MEDS: ASPirin-EC 81 mg tab PO SCH (09:48)
[2020-06-20] MEDS: DAPAGLIFLOZIN 5 MG TAB PO SCH (09:49)
[2020-06-20] MEDS ORDERED: PANTOPRAZOLE 40 MG TAB PO SCH (10:00)
[2020-06-20] MEDS ORDERED: FUROSEMIDE 40 MG/4 ML VIAL IV SCH (10:00)
[2020-06-20] MEDS ORDERED: OPTISON 3ml Vial for INJ IV ONE (10:57)
[2020-06-20] MEDS ORDERED: DOCUSATE SOD 100 MG CAP PO ONE (11:00)
[2020-06-20 12:47] VITALS: BP 100/65
[2020-06-20] MEDS ORDERED: GOLYTELY 4L KIT PO ONE (13:15)
[2020-06-20] MEDS ORDERED: INSULIN LANTUS (GLARGINE) 1 /0.01ml (100units/ml) SC ONE (15:30)
[2020-06-20] MEDS ORDERED: SODIUM CHLORIDE 0.9% 1,000 ML IV SCH (15:45)
[2020-06-20 17:00] VITALS: BP 107/61
[2020-06-20 22:00] VITALS: BP 102/69
[2020-06-20] MEDS: DOCUSATE SOD 100 MG CAP PO SCH (22:13)
[2020-06-20] MEDS: ATORVASTATIN 20 MG TAB PO SCH (23:01)
[2020-06-21 04:40] VITALS: BP 117/71
[2020-06-21 05:54] LABS: Basophils # (auto) 0 10 ^3/uL (0-0.2); Basophils % (auto) 0.2 % (0.0-2.0); Eosinophils # (auto) 0 10 ^3/uL (0-0.8); Eosinophils % (auto) 0.1 % (0.0-7.0); Hematocrit 43.6 % (41.0-53.0); Hemoglobin 14.8 g/dL (13.5-17.5); Lymphocytes # (auto) 0.8 10 ^3/uL (0.4-5.4); Lymphocytes % (auto) 7.1 % (10.0-50.0); Mean Corpuscular Hemoglobin 28.4 pg (28.0-32.0); Mean Corpuscular Hgb Conc. 33.9 g/dL (32.0-36.0); Mean Corpuscular Volume 83.6 fL (80.0-100.0); Monocytes # (auto) 1.1 10 ^3/uL (0-1.3); Monocytes % (auto) 10.2 % (0.0-12.0); Neutrophils # (auto) 8.7 10 ^3/uL (1.6-8.6); Neutrophils % (auto) 82.4 % (37.0-80.0); Nucleated Red Blood Cells % 0.2 %; Platelet Count (auto) 242 10^3/uL (140-450); Red Blood Cells 5.22 10^6/uL (4.5-5.90); Red Cell Distribution Width 16.2 % (11.8-14.3); White Blood Cell 10.6 10^3/uL (4.4-10.8)
[2020-06-21 06:00] LABS: Albumin 3.1 g/dL (3.4-5.0); Calcium 8.5 mg/dL (8.5-10.1); Potassium 3.3 mmol/L (3.5-5.1)
[2020-06-21 06:03] LABS: BUN/Creatinine Ratio 31.7; Bilirubin, Total 1.6 mg/dL (0.2-1.0); Total Protein 7.2 g/dL (6.4-8.2)
[2020-06-21 06:07] LABS: INR 1.24 (0.9-1.15)
[2020-06-21 06:11] LABS: Albumin 3.1 g/dL (3.4-5.0)
[2020-06-21] MEDS: ACCU-CHEK COMFORT CURVE STRIP VI SCH ×4 (06:11→22:07)
[2020-06-21 06:16] LABS: Bilirubin, Direct 0.5 mg/dL (0-0.2); Bilirubin, Total 1.6 mg/dL (0.2-1.0); Total Protein 7.3 g/dL (6.4-8.2)
[2020-06-21] MEDS: InsuLIN REG 1unit/0.01ml Soln (100units/ml) SC SCH ×4 (06:18→22:08)
[2020-06-21] MEDS: INSULIN LANTUS (GLARGINE) 1 /0.01ml (100units/ml) SC SCH (06:23)
[2020-06-21 08:00] VITALS: BP 110/75
[2020-06-21] MEDS ORDERED: POTASSIUM CHL 20 Meq TABLET PO ONE ×2 (09:45→17:45)
[2020-06-21] MEDS ORDERED: PROPOFOL 10 MG/ML 20 ML IV ONE (09:53)
[2020-06-21] MEDS ORDERED: LIDOCAINE 1% (LOCAL ANESTH.) PF 5ml SDV ONE (09:53)
[2020-06-21] MEDS ORDERED: POTASSIUM CHL 20 Meq TABLET PO SCH (10:00)
[2020-06-21] MEDS ORDERED: FUROSEMIDE 40 MG TAB PO SCH (10:00)
[2020-06-21] MEDS: DOCUSATE SOD 100 MG CAP PO SCH ×2 (10:00→22:00)
[2020-06-21 12:00] VITALS: BP 123/78
[2020-06-21] MEDS: IVABRADINE 5 MG TAB PO SCH ×2 (12:26→22:05)
[2020-06-21] MEDS: DAPAGLIFLOZIN 5 MG TAB PO SCH (12:27)
[2020-06-21] MEDS: MEXILETINE HYDROCHLORIDE 150 MG CAP PO SCH ×2 (12:27→22:06)
[2020-06-21] MEDS: ASPirin-EC 81 mg tab PO SCH (12:27)
[2020-06-21 16:00] VITALS: BP 129/75
[2020-06-21] MEDS ORDERED: TEMAZEPAM 15 MG CAP PO PRN (17:45)
[2020-06-21] MEDS ORDERED: FUROSEMIDE 40 MG TAB PO ONE (17:45)
[2020-06-21 22:00] VITALS: BP 96/67
[2020-06-21] MEDS: ATORVASTATIN 20 MG TAB PO SCH (22:05)
[2020-06-21] MEDS: PANTOPRAZOLE 40 MG TAB PO SCH (22:06)
[2020-06-22 05:00] VITALS: BP 130/66
[2020-06-22 05:32] LABS: BUN/Creatinine Ratio 28.7; Calcium 8.3 mg/dL (8.5-10.1)
[2020-06-22] MEDS: ACCU-CHEK COMFORT CURVE STRIP VI SCH ×3 (06:25→22:29)
[2020-06-22] MEDS: INSULIN LANTUS (GLARGINE) 1 /0.01ml (100units/ml) SC SCH (06:26)
[2020-06-22] MEDS: InsuLIN REG 1unit/0.01ml Soln (100units/ml) SC SCH ×3 (06:27→22:30)
[2020-06-22 08:00] VITALS: BP 115/73
[2020-06-22] MEDS: DOCUSATE SOD 100 MG CAP PO SCH ×2 (09:48→22:00)
[2020-06-22] MEDS: IVABRADINE 5 MG TAB PO SCH ×2 (09:48→22:28)
[2020-06-22] MEDS: POTASSIUM CHL 20 Meq TABLET PO SCH (09:49)
[2020-06-22] MEDS: PANTOPRAZOLE 40 MG TAB PO SCH ×2 (09:49→22:29)
[2020-06-22] MEDS: ASPirin-EC 81 mg tab PO SCH (09:49)
[2020-06-22] MEDS ORDERED: FUROSEMIDE 40 MG TAB PO SCH (10:00)
[2020-06-22] MEDS: MEXILETINE HYDROCHLORIDE 150 MG CAP PO SCH ×2 (10:31→22:28)
[2020-06-22] MEDS: DAPAGLIFLOZIN 5 MG TAB PO SCH (10:31)
[2020-06-22 13:00] VITALS: BP 102/61
[2020-06-22 17:00] VITALS: BP 128/77
[2020-06-22 22:00] VITALS: BP 103/74
[2020-06-22] MEDS ORDERED: FUROSEMIDE 40 MG/4 ML VIAL IV ONE (22:00)
[2020-06-22] MEDS: ATORVASTATIN 20 MG TAB PO SCH (22:28)
[2020-06-23 05:00] VITALS: BP 114/72
[2020-06-23 05:33] LABS: Basophils # (auto) 0 10 ^3/uL (0-0.2); Basophils % (auto) 0.2 % (0.0-2.0); Eosinophils # (auto) 0 10 ^3/uL (0-0.8); Eosinophils % (auto) 0.1 % (0.0-7.0); Hematocrit 46.5 % (41.0-53.0); Hemoglobin 15.8 g/dL (13.5-17.5); Lymphocytes # (auto) 1.7 10 ^3/uL (0.4-5.4); Lymphocytes % (auto) 13.1 % (10.0-50.0); Mean Corpuscular Hemoglobin 28.9 pg (28.0-32.0); Mean Corpuscular Hgb Conc. 33.9 g/dL (32.0-36.0); Mean Corpuscular Volume 85.3 fL (80.0-100.0); Monocytes # (auto) 1.5 10 ^3/uL (0-1.3); Monocytes % (auto) 11.3 % (0.0-12.0); Neutrophils # (auto) 9.8 10 ^3/uL (1.6-8.6); Neutrophils % (auto) 75.3 % (37.0-80.0); Nucleated Red Blood Cells % 0.4 %; Platelet Count (auto) 215 10^3/uL (140-450); Red Blood Cells 5.46 10^6/uL (4.5-5.90); Red Cell Distribution Width 16.4 % (11.8-14.3); White Blood Cell 13.1 10^3/uL (4.4-10.8)
[2020-06-23 05:53] LABS: Calcium 8.4 mg/dL (8.5-10.1); Potassium 4.4 mmol/L (3.5-5.1)
[2020-06-23 06:19] LABS: BUN/Creatinine Ratio 31.1
[2020-06-23] MEDS: ACCU-CHEK COMFORT CURVE STRIP VI SCH ×4 (06:31→21:30)
[2020-06-23] MEDS: INSULIN LANTUS (GLARGINE) 1 /0.01ml (100units/ml) SC SCH ×2 (06:32→21:32)
[2020-06-23] MEDS: InsuLIN REG 1unit/0.01ml Soln (100units/ml) SC SCH ×4 (06:33→21:38)
[2020-06-23 09:00] VITALS: BP 117/81
[2020-06-23] MEDS ORDERED: FUROSEMIDE 40 MG/4 ML VIAL IV ONE (09:30)
[2020-06-23] MEDS ORDERED: metOLazone 5 MG TAB PO ONE (09:30)
[2020-06-23] MEDS: MEXILETINE HYDROCHLORIDE 150 MG CAP PO SCH ×2 (09:31→21:30)
[2020-06-23] MEDS: DOCUSATE SOD 100 MG CAP PO SCH ×2 (09:31→21:29)
[2020-06-23] MEDS: IVABRADINE 5 MG TAB PO SCH ×2 (09:31→21:29)
[2020-06-23] MEDS: DAPAGLIFLOZIN 5 MG TAB PO SCH (09:31)
[2020-06-23] MEDS: ASPirin-EC 81 mg tab PO SCH (09:32)
[2020-06-23] MEDS: POTASSIUM CHL 20 Meq TABLET PO SCH (09:32)
[2020-06-23] MEDS: PANTOPRAZOLE 40 MG TAB PO SCH ×2 (09:32→21:30)
[2020-06-23] MEDS ORDERED: FUROSEMIDE 20 MG/2 ML VIAL IV SCH (10:00)
[2020-06-23] MEDS ORDERED: FUROSEMIDE 40 MG TAB PO SCH (10:00)
[2020-06-23] MEDS ORDERED: ALPRAZolam 0.25 MG TAB PO PRN (10:30)
[2020-06-23 11:08] LABS: Hepatitis B Surface Antibody Negative
[2020-06-23 11:22] VITALS: BP 117/81
[2020-06-23 11:39] LABS: Hepatitis A Total Antibody Negative
[2020-06-23] MEDS: FUROSEMIDE 40 MG/4 ML VIAL IV SCH (11:44)
[2020-06-23] MEDS ORDERED: ALBUTEROL SULF 2.5 MG/0.5ML(0.5%) NEB SOLN NEB SCH (12:00)
[2020-06-23 12:36] LABS: Hepatitis B Core Total AB Negative; Hepatitis C Antibody Negative (Negative)
[2020-06-23 12:37] LABS: Hepatitis B Surface Antigen Negative (Negative)
[2020-06-23 13:00] VITALS: BP 111/74
[2020-06-23 14:37] LABS: Bilirubin, Direct 1.4 mg/dL (0-0.2); Bilirubin, Total 3.1 mg/dL (0.2-1.0); CRP High Sensitivity 10.7 mg/dL (< 0.3); Total Protein 6.8 g/dL (6.4-8.2)
[2020-06-23 16:52] VITALS: BP 102/64
[2020-06-23] MEDS: Glucerna Carbsteady SHAKE Stawberry 8oz PO SCH (17:58)
[2020-06-23] MEDS: LEVALBUTEROL HCL 1.25 MG/3 ML NEB NEB SCH (18:18)
[2020-06-23] MEDS: ATORVASTATIN 20 MG TAB PO SCH (21:29)
[2020-06-23 22:00] VITALS: BP 116/67
[2020-06-24] VITALS (13 sets, daily range): BP systolic 105–129; BP diastolic 65–80
[2020-06-24] MEDS: LEVALBUTEROL HCL 1.25 MG/3 ML NEB NEB SCH ×5 (00:51→22:38)
[2020-06-24 06:07] LABS: Basophils # (auto) 0 10 ^3/uL (0-0.2); Basophils % (auto) 0.3 % (0.0-2.0); Eosinophils # (auto) 0 10 ^3/uL (0-0.8); Eosinophils % (auto) 0.1 % (0.0-7.0); Hematocrit 44.9 % (41.0-53.0); Hemoglobin 15.5 g/dL (13.5-17.5); Lymphocytes # (auto) 1.1 10 ^3/uL (0.4-5.4); Lymphocytes % (auto) 8.2 % (10.0-50.0); Mean Corpuscular Hemoglobin 28.4 pg (28.0-32.0); Mean Corpuscular Hgb Conc. 34.4 g/dL (32.0-36.0); Mean Corpuscular Volume 82.6 fL (80.0-100.0); Monocytes # (auto) 1.5 10 ^3/uL (0-1.3); Monocytes % (auto) 10.8 % (0.0-12.0); Neutrophils # (auto) 10.8 10 ^3/uL (1.6-8.6); Neutrophils % (auto) 80.6 % (37.0-80.0); Nucleated Red Blood Cells % 0.6 %; Platelet Count (auto) 308 10^3/uL (140-450); Red Blood Cells 5.44 10^6/uL (4.5-5.90); Red Cell Distribution Width 16.4 % (11.8-14.3); White Blood Cell 13.5 10^3/uL (4.4-10.8)
[2020-06-24] MEDS: InsuLIN REG 1unit/0.01ml Soln (100units/ml) SC SCH ×4 (06:22→22:46)
[2020-06-24] MEDS: ACCU-CHEK COMFORT CURVE STRIP VI SCH ×4 (06:22→22:49)
[2020-06-24 06:33] LABS: Calcium 8.7 mg/dL (8.5-10.1); Potassium 3.3 mmol/L (3.5-5.1)
[2020-06-24 06:42] LABS: BUN/Creatinine Ratio 29.6; Bilirubin, Total 3.4 mg/dL (0.2-1.0); Total Protein 7.3 g/dL (6.4-8.2)
[2020-06-24] MEDS ORDERED: LIDOCAINE 2%HCL (LOCAL ANESTH.) INJ 20ML MDV ONE (07:45)
[2020-06-24] MEDS ORDERED: IOHEXOL 350 MG/ML 100ML IJ ONE (07:45)
[2020-06-24] MEDS: Glucerna Carbsteady SHAKE Stawberry 8oz PO SCH ×3 (08:00→18:15)
[2020-06-24] MEDS ORDERED: VERAPAMIL 2.5MG/ML INJ 2ML VIAL IV ONE (08:16)
[2020-06-24] MEDS ORDERED: ANGIOMAX 250 MG VIAL IV ONE (08:16)
[2020-06-24] MEDS ORDERED: fentaNYL CITRATE 100 MCG/2 ML VL ONE (08:17)
[2020-06-24] MEDS ORDERED: MIDAZOLAM HCL 1MG/1ML-2 ML VIAL ONE (08:17)
[2020-06-24] MEDS ORDERED: SODIUM CHL 0.9% 0 ML ONE (08:17)
[2020-06-24] MEDS ORDERED: NITROGLYCERIN 5MG/ML 10ML VIAL IV ONE (08:18)
[2020-06-24] MEDS: DOBUTamine 1000MCG/ML 250 ML IV SCH (09:39)
[2020-06-24] MEDS: DOCUSATE SOD 100 MG CAP PO SCH ×3 (10:00→22:41)
[2020-06-24] MEDS: POTASSIUM CHL 20 Meq TABLET PO SCH (11:30)
[2020-06-24] MEDS: DAPAGLIFLOZIN 5 MG TAB PO SCH (11:30)
[2020-06-24] MEDS: ASPirin-EC 81 mg tab PO SCH (11:30)
[2020-06-24] MEDS: FUROSEMIDE 40 MG/4 ML VIAL IV SCH (11:30)
[2020-06-24] MEDS: PANTOPRAZOLE 40 MG TAB PO SCH ×2 (11:31→22:43)
[2020-06-24] MEDS: INSULIN LANTUS (GLARGINE) 1 /0.01ml (100units/ml) SC SCH ×2 (11:31→22:49)
[2020-06-24] MEDS: MEXILETINE HYDROCHLORIDE 150 MG CAP PO SCH ×2 (11:31→22:43)
[2020-06-24] MEDS ORDERED: CITALOPRAM HYDROBR 20 MG TAB PO ONE (12:00)
[2020-06-24] MEDS: ATORVASTATIN 20 MG TAB PO SCH (22:42)
[2020-06-25] VITALS (25 sets, daily range): BP systolic 103–137; BP diastolic 64–84
[2020-06-25] MEDS: diphenhdrAMINE HCL 25 MG CAP PO PRN (03:23)
[2020-06-25] MEDS: ACCU-CHEK COMFORT CURVE STRIP VI SCH ×5 (06:34→23:46)
[2020-06-25] MEDS: InsuLIN REG 1unit/0.01ml Soln (100units/ml) SC SCH ×5 (06:41→23:47)
[2020-06-25] MEDS: LEVALBUTEROL HCL 1.25 MG/3 ML NEB NEB SCH ×4 (07:17→18:11)
[2020-06-25] MEDS: Glucerna Carbsteady SHAKE Stawberry 8oz PO SCH ×2 (08:00→18:10)
[2020-06-25] MEDS: PANTOPRAZOLE 40 MG TAB PO SCH ×2 (09:19→20:58)
[2020-06-25] MEDS: POTASSIUM CHL 20 Meq TABLET PO SCH (09:19)
[2020-06-25] MEDS: DAPAGLIFLOZIN 5 MG TAB PO SCH (09:20)
[2020-06-25] MEDS: CITALOPRAM HYDROBR 20 MG TAB PO SCH (09:20)
[2020-06-25] MEDS: DOCUSATE SOD 100 MG CAP PO SCH ×2 (09:20→20:58)
[2020-06-25] MEDS: ASPirin-EC 81 mg tab PO SCH (09:20)
[2020-06-25] MEDS: MEXILETINE HYDROCHLORIDE 150 MG CAP PO SCH ×2 (09:21→20:57)
[2020-06-25] MEDS: FUROSEMIDE 40 MG/4 ML VIAL IV SCH (09:21)
[2020-06-25 09:37] LABS: Basophils # (auto) 0 10 ^3/uL (0-0.2); Basophils % (auto) 0.4 % (0.0-2.0); Eosinophils # (auto) 0 10 ^3/uL (0-0.8); Eosinophils % (auto) 0.3 % (0.0-7.0); Hematocrit 44.3 % (41.0-53.0); Hemoglobin 14.9 g/dL (13.5-17.5); Lymphocytes # (auto) 0.8 10 ^3/uL (0.4-5.4); Lymphocytes % (auto) 6.9 % (10.0-50.0); Mean Corpuscular Hemoglobin 27.9 pg (28.0-32.0); Mean Corpuscular Hgb Conc. 33.7 g/dL (32.0-36.0); Mean Corpuscular Volume 82.8 fL (80.0-100.0); Monocytes # (auto) 0.9 10 ^3/uL (0-1.3); Monocytes % (auto) 7.6 % (0.0-12.0); Neutrophils # (auto) 10.4 10 ^3/uL (1.6-8.6); Neutrophils % (auto) 84.8 % (37.0-80.0); Nucleated Red Blood Cells % 0.5 %; Platelet Count (auto) 340 10^3/uL (140-450); Red Blood Cells 5.35 10^6/uL (4.5-5.90); Red Cell Distribution Width 16.4 % (11.8-14.3); White Blood Cell 12.3 10^3/uL (4.4-10.8)
[2020-06-25 09:59] LABS: Albumin 2.7 g/dL (3.4-5.0); Calcium 8.5 mg/dL (8.5-10.1); Magnesium 2.3 mg/dL (1.6-2.6); Potassium 3.2 mmol/L (3.5-5.1)
[2020-06-25 10:07] LABS: BUN/Creatinine Ratio 23.5; Bilirubin, Total 3.7 mg/dL (0.2-1.0); Total Protein 6.8 g/dL (6.4-8.2)
[2020-06-25] MEDS: INSULIN LANTUS (GLARGINE) 1 /0.01ml (100units/ml) SC SCH ×2 (10:11→20:53)
[2020-06-25] MEDS ORDERED: POTASSIUM CHL 20 Meq TABLET PO ONE (11:45)
[2020-06-25] MEDS: DOBUTamine 1000MCG/ML 250 ML IV SCH ×2 (18:40→19:50)
[2020-06-25] MEDS ORDERED: DEXTROSE (50%) 50ML SYRG IV PRN (21:45)
[2020-06-26] VITALS (26 sets, daily range): BP systolic 100–150; BP diastolic 62–116
[2020-06-26] MEDS: LEVALBUTEROL HCL 1.25 MG/3 ML NEB NEB SCH ×3 (00:07→17:58)
[2020-06-26] MEDS ORDERED: MEXILETINE HYDROCHLORIDE 150 MG CAP PO SCH (00:30)
[2020-06-26] MEDS: diphenhdrAMINE HCL 25 MG CAP PO PRN (00:48)
[2020-06-26] MEDS: ACCU-CHEK COMFORT CURVE STRIP VI SCH ×3 (05:50→18:29)
[2020-06-26] MEDS: InsuLIN REG 1unit/0.01ml Soln (100units/ml) SC SCH ×3 (05:50→18:31)
[2020-06-26 06:27] LABS: Albumin 2.7 g/dL (3.4-5.0); BUN/Creatinine Ratio 26.5; Basophils # (auto) 0 10 ^3/uL (0-0.2); Basophils % (auto) 0.4 % (0.0-2.0); Bilirubin, Total 3.5 mg/dL (0.2-1.0); Calcium 8.5 mg/dL (8.5-10.1); Eosinophils # (auto) 0 10 ^3/uL (0-0.8); Eosinophils % (auto) 0.2 % (0.0-7.0); Hematocrit 44.2 % (41.0-53.0); Lymphocytes # (auto) 0.9 10 ^3/uL (0.4-5.4); Lymphocytes % (auto) 7.4 % (10.0-50.0); Magnesium 2.6 mg/dL (1.6-2.6); Mean Corpuscular Hemoglobin 28.1 pg (28.0-32.0); Mean Corpuscular Hgb Conc. 33.9 g/dL (32.0-36.0); Mean Corpuscular Volume 82.9 fL (80.0-100.0); Monocytes # (auto) 1.2 10 ^3/uL (0-1.3); Neutrophils # (auto) 10.1 10 ^3/uL (1.6-8.6); Nucleated Red Blood Cells % 0.5 %; Platelet Count (auto) 333 10^3/uL (140-450); Red Blood Cells 5.34 10^6/uL (4.5-5.90); Red Cell Distribution Width 16.5 % (11.8-14.3); Total Protein 7.1 g/dL (6.4-8.2); White Blood Cell 12.3 10^3/uL (4.4-10.8)
[2020-06-26] MEDS ORDERED: POTASSIUM CHL 20MEQ/100ML 100 ML IV ONE ×2 (06:45→06:46)
[2020-06-26] MEDS: Glucerna Carbsteady SHAKE Stawberry 8oz PO SCH ×2 (08:00→18:28)
[2020-06-26] MEDS ORDERED: AMIODARONE 450mg/250ml AE 250 ML IV SCH (09:15)
[2020-06-26] MEDS ORDERED: AMIODARONE HCL 150 MG in D5W 5% 100 ML IV ONE (09:15)
[2020-06-26] MEDS ORDERED: DIGOXIN (250MCG/ML) 2 ML AMPULE IV ONE (09:15)
[2020-06-26] MEDS: MEXILETINE HYDROCHLORIDE 150 MG CAP PO SCH ×2 (10:00→21:55)
[2020-06-26] MEDS: DOBUTamine 1000MCG/ML 250 ML IV SCH ×2 (10:35→12:46)
[2020-06-26] MEDS: POTASSIUM CHL 20 Meq TABLET PO SCH (10:38)
[2020-06-26] MEDS: ASPirin-EC 81 mg tab PO SCH (10:38)
[2020-06-26] MEDS: DOCUSATE SOD 100 MG CAP PO SCH ×2 (10:38→21:54)
[2020-06-26] MEDS: DAPAGLIFLOZIN 5 MG TAB PO SCH (10:38)
[2020-06-26] MEDS: PANTOPRAZOLE 40 MG TAB PO SCH ×2 (10:39→21:55)
[2020-06-26] MEDS: CITALOPRAM HYDROBR 20 MG TAB PO SCH (10:39)
[2020-06-26] MEDS: ENOXAPARIN SOD 100 MG/1 ML SYRINGE SC SCH ×2 (10:39→21:56)
[2020-06-26] MEDS: FUROSEMIDE 40 MG/4 ML VIAL IV SCH (10:42)
[2020-06-26] MEDS ORDERED: POTASSIUM CHL 20 Meq TABLET PO ONE (11:00)
[2020-06-26] MEDS: INSULIN LANTUS (GLARGINE) 1 /0.01ml (100units/ml) SC SCH ×2 (11:07→21:56)
[2020-06-26] MEDS: AMIODARONE 450mg/250ml AE 250 ML IV SCH (15:15)
[2020-06-27] VITALS (20 sets, daily range): BP systolic 95–134; BP diastolic 59–80
[2020-06-27] MEDS: LEVALBUTEROL HCL 1.25 MG/3 ML NEB NEB SCH ×5 (00:08→23:54)
[2020-06-27 05:22] LABS: Albumin 2.6 g/dL (3.4-5.0); Calcium 8.3 mg/dL (8.5-10.1)
[2020-06-27 05:25] LABS: BUN/Creatinine Ratio 26.8; Bilirubin, Total 2.4 mg/dL (0.2-1.0); Total Protein 6.7 g/dL (6.4-8.2)
[2020-06-27] MEDS: ACCU-CHEK COMFORT CURVE STRIP VI SCH ×4 (06:00→18:07)
[2020-06-27] MEDS: InsuLIN REG 1unit/0.01ml Soln (100units/ml) SC SCH ×4 (06:00→18:08)
[2020-06-27] MEDS: AMIODARONE 450mg/250ml AE 250 ML IV SCH (06:15)
[2020-06-27] MEDS: Glucerna Carbsteady SHAKE Stawberry 8oz PO SCH ×2 (07:23→18:10)
[2020-06-27] MEDS ORDERED: POTASSIUM CHL 20 Meq TABLET PO ONE ×2 (09:59→10:00)
[2020-06-27] MEDS: MEXILETINE HYDROCHLORIDE 150 MG CAP PO SCH ×2 (10:00→22:07)
[2020-06-27] MEDS: POTASSIUM CHL 20 Meq TABLET PO SCH (10:16)
[2020-06-27] MEDS: DAPAGLIFLOZIN 5 MG TAB PO SCH (10:17)
[2020-06-27] MEDS: PANTOPRAZOLE 40 MG TAB PO SCH ×2 (10:17→22:07)
[2020-06-27] MEDS: ASPirin-EC 81 mg tab PO SCH (10:17)
[2020-06-27] MEDS: CITALOPRAM HYDROBR 20 MG TAB PO SCH (10:17)
[2020-06-27] MEDS: FUROSEMIDE 40 MG/4 ML VIAL IV SCH (10:18)
[2020-06-27] MEDS: ENOXAPARIN SOD 100 MG/1 ML SYRINGE SC SCH ×2 (10:18→22:07)
[2020-06-27] MEDS: INSULIN LANTUS (GLARGINE) 1 /0.01ml (100units/ml) SC SCH ×2 (10:37→22:08)
[2020-06-27] MEDS: DOCUSATE SOD 100 MG CAP PO SCH ×2 (16:17→22:07)
[2020-06-28] VITALS (19 sets, daily range): BP systolic 100–119; BP diastolic 59–80
[2020-06-28] MEDS: ACCU-CHEK COMFORT CURVE STRIP VI SCH ×3 (06:00→12:01)
[2020-06-28] MEDS: InsuLIN REG 1unit/0.01ml Soln (100units/ml) SC SCH ×3 (06:35→12:00)
[2020-06-28] MEDS: LEVALBUTEROL HCL 1.25 MG/3 ML NEB NEB SCH ×2 (06:50→11:47)
[2020-06-28] MEDS: Glucerna Carbsteady SHAKE Stawberry 8oz PO SCH (08:00)
[2020-06-28 08:27] LABS: BUN/Creatinine Ratio 25.5; Calcium 8.6 mg/dL (8.5-10.1); Potassium 3.3 mmol/L (3.5-5.1)
[2020-06-28] MEDS: INSULIN LANTUS (GLARGINE) 1 /0.01ml (100units/ml) SC SCH (10:00)
[2020-06-28] MEDS: DOCUSATE SOD 100 MG CAP PO SCH (10:24)
[2020-06-28] MEDS: MEXILETINE HYDROCHLORIDE 150 MG CAP PO SCH (10:24)
[2020-06-28] MEDS: ASPirin-EC 81 mg tab PO SCH (10:24)
[2020-06-28] MEDS: CITALOPRAM HYDROBR 20 MG TAB PO SCH (10:24)
[2020-06-28] MEDS: POTASSIUM CHL 20 Meq TABLET PO SCH (10:24)
[2020-06-28] MEDS: DAPAGLIFLOZIN 5 MG TAB PO SCH (10:24)
[2020-06-28] MEDS: FUROSEMIDE 40 MG/4 ML VIAL IV SCH (10:24)
[2020-06-28] MEDS: ENOXAPARIN SOD 100 MG/1 ML SYRINGE SC SCH (10:25)
[2020-06-28] MEDS: PANTOPRAZOLE 40 MG TAB PO SCH (10:25)
[2020-06-28] MEDS ORDERED: POTASSIUM EFFERVESENT TAB 25 MEQ PO ONE (14:15)
[2020-06-28] MEDS ORDERED: POTASSIUM CHL 10 Meq TABLET PO ONE (15:15)
== END 2020-06-28 17:25 | disposition short-term general hospital (02) | DRG 286 ==
LOC: ER 18:32 → TELE 19:45 → TELE-CENTR 23:15 → DOU IN ICU 06-24 16:31
PROVIDERS: ADMIT Nurse Practitioner Acute Care; ATTEND Internal Medicine
PROC: 0DBE8ZX Excision of Large Intestine, Via Natural or Artificial Opening Endoscopic, Diagnostic (ICD-10-PCS; 2020-06-21)
PROC: 0DB68ZX Excision of Stomach, Via Natural or Artificial Opening Endoscopic, Diagnostic (ICD-10-PCS; principal; 2020-06-21 09:54)
PROC: 4A023N6 Measurement of Cardiac Sampling and Pressure, Right Heart, Percutaneous Approach (ICD-10-PCS; 2020-06-24)
DX: I13.0 Hypertensive heart and chronic kidney disease with heart failure and stage 1 through stage 4 chronic kidney disease, or unspecified chronic kidney disease (principal); I50.43 Acute on chronic combined systolic (congestive) and diastolic (congestive) heart failure; R57.0 Cardiogenic shock; N17.0 Acute kidney failure with tubular necrosis; K72.00 Acute and subacute hepatic failure without coma; K76.7 Hepatorenal syndrome; E44.0 Moderate protein-calorie malnutrition; E87.1 Hypo-osmolality and hyponatremia; Z68.43 Body mass index [BMI] 50.0-59.9, adult; N17.9 Acute kidney failure, unspecified; Z20.822 Contact with and (suspected) exposure to COVID-19; E11.22 Type 2 diabetes mellitus with diabetic chronic kidney disease; E11.43 Type 2 diabetes mellitus with diabetic autonomic (poly)neuropathy; K29.70 Gastritis, unspecified, without bleeding; K57.30 Diverticulosis of large intestine without perforation or abscess without bleeding; K64.8 Other hemorrhoids; I27.20 Pulmonary hypertension, unspecified; K56.41 Fecal impaction; E78.5 Hyperlipidemia, unspecified; I42.8 Other cardiomyopathies; I25.10 Atherosclerotic heart disease of native coronary artery without angina pectoris; E87.6 Hypokalemia; N18.30 Chronic kidney disease, stage 3 unspecified; Z79.82 Long term (current) use of aspirin; Z79.899 Other long term (current) drug therapy; Z79.01 Long term (current) use of anticoagulants; Z79.84 Long term (current) use of oral hypoglycemic drugs; Z82.49 Family history of ischemic heart disease and other diseases of the circulatory system; Z83.3 Family history of diabetes mellitus; Z95.810 Presence of automatic (implantable) cardiac defibrillator
CPT/HCPCS: 36415; 36600; 43239; 45380; 71046; 76705; 78582; 80048; 80053; 80076; 81001; 82140; 82705; 82728; 82784; 82805; 82962; 83036; 83516; 83735; 83880; 84484; 85025; 85379; 85610; 86141; 86255; 86704; 86706; 86708; 86803; 86850; 86900; 86901; 87045; 87081; 87340; 87426; 87427; 87493; 93005; 93306; 93451; 94640; 94660; 96374; 96375; 97110; 97116; 97163; 97530; 99152; C1751; G0378; J1815; J2250; J2704; J3480; J3490; J7060; Q9956

== ENCOUNTER → 2020-07-07 | Outpatient (CLI) | payer BC ==
[~2020-07-07] MED LIST changes: -ESCI10TA PO
[2020-07-07 12:10] VITALS: BP 110/62
[2020-07-07 16:08] LABS: Albumin 3.1 g/dL (3.4-5.0); Calcium 9.2 mg/dL (8.5-10.1); Magnesium 2.3 mg/dL (1.6-2.6); Potassium 4.3 mmol/L (3.5-5.1)
[2020-07-07 16:11] LABS: BUN/Creatinine Ratio 25.3; Total Protein 8.6 g/dL (6.4-8.2)
[2020-07-07 16:19] LABS: Basophils # (auto) 0.3 10 ^3/uL (0-0.2); Basophils % (auto) 3.4 % (0.0-2.0); Eosinophils # (auto) 0.2 10 ^3/uL (0-0.8); Hematocrit 50.3 % (41.0-53.0); Hemoglobin 17.1 g/dL (13.5-17.5); Lymphocytes # (auto) 1.4 10 ^3/uL (0.4-5.4); Lymphocytes % (auto) 17.5 % (10.0-50.0); Mean Corpuscular Hemoglobin 28.9 pg (28.0-32.0); Mean Corpuscular Volume 85.1 fL (80.0-100.0); Neutrophils # (auto) 5.3 10 ^3/uL (1.6-8.6); Neutrophils % (auto) 65.1 % (37.0-80.0); Nucleated Red Blood Cells % 0.1 %; Platelet Count (auto) 489 10^3/uL (140-450); Red Blood Cells 5.92 10^6/uL (4.5-5.90); Red Cell Distribution Width 17.5 % (11.8-14.3); White Blood Cell 8.2 10^3/uL (4.4-10.8)
== END | disposition home or self-care (01) ==
LOC: CHF HDHVI 12:47
PROVIDERS: ATTEND Internal Medicine Cardiovascular Disease
DX: I50.23 Acute on chronic systolic (congestive) heart failure (principal); D51.9 Vitamin B12 deficiency anemia, unspecified
CPT/HCPCS: 36415; 80053; 82306; 82607; 83735; 83880; 84403; 85025; G0463

== ENCOUNTER → 2020-07-11 | Outpatient (CLI) | payer BC ==
[2020-07-11 11:48] VITALS: BP 114/69
[2020-07-11 12:30] VITALS: BP 112/70
== END | disposition home or self-care (01) ==
LOC: CHF HDHVI 11:48
PROVIDERS: ATTEND Internal Medicine Cardiovascular Disease
DX: I50.9 Heart failure, unspecified (principal); E11.9 Type 2 diabetes mellitus without complications; R53.83 Other fatigue
CPT/HCPCS: G0463

== ENCOUNTER → 2020-08-01 | Outpatient (CLI) | payer BC ==
[2020-08-01 11:00] VITALS: BP 140/83
[2020-08-01 12:00] VITALS: BP 138/82
== END | disposition home or self-care (01) ==
LOC: CHF HDHVI 11:03
PROVIDERS: ATTEND Internal Medicine Cardiovascular Disease
DX: I50.9 Heart failure, unspecified (principal)
CPT/HCPCS: G0463

== ENCOUNTER → 2020-08-15 | Outpatient (CLI) | payer BC ==
[2020-08-15 11:30] VITALS: BP 111/68
[2020-08-15 15:30] LABS: Urine Bacteria NONE SEEN /hpf (None Seen); Urine Blood Negative /uL (Negative); Urine Specific Gravity 1.012 (1.001-1.035); Urine WBC 1 /hpf (0 - 3)
== END | disposition home or self-care (01) ==
LOC: CHF HDHVI 10:52
PROVIDERS: ATTEND Internal Medicine Cardiovascular Disease
DX: N39.0 Urinary tract infection, site not specified (principal); I50.9 Heart failure, unspecified; E11.9 Type 2 diabetes mellitus without complications; D72.829 Elevated white blood cell count, unspecified
CPT/HCPCS: 81001; G0463

== ENCOUNTER → 2020-08-22 | Outpatient (CLI) | payer BC | END | disposition home or self-care (01) | LOC: CHF HDHVI 09:56 | PROVIDERS: ATTEND Internal Medicine Cardiovascular Disease | DX: I51.7 Cardiomegaly (principal); R06.02 Shortness of breath; R09.89 Other specified symptoms and signs involving the circulatory and respiratory systems; Z95.9 Presence of cardiac and vascular implant and graft, unspecified | CPT/HCPCS: 71046 ==

== ENCOUNTER → 2020-09-05 | Outpatient (CLI) | payer BC ==
[2020-09-05 11:10] VITALS: BP 145/78
[2020-09-05 11:23] VITALS: BP 145/78
== END | disposition home or self-care (01) ==
LOC: CHF HDHVI 11:21
PROVIDERS: ATTEND Internal Medicine Cardiovascular Disease
DX: I50.9 Heart failure, unspecified (principal)
CPT/HCPCS: G0463

== ENCOUNTER → 2020-09-19 | Outpatient (CLI) | payer BC ==
[2020-09-19 10:52] VITALS: BP 135/57
[2020-09-19 11:12] VITALS: BP 135/57
== END | disposition home or self-care (01) ==
LOC: CHF HDHVI 10:53
PROVIDERS: ATTEND Internal Medicine Cardiovascular Disease
DX: I50.9 Heart failure, unspecified (principal)
CPT/HCPCS: G0463

== ENCOUNTER → 2020-09-26 | Outpatient (CLI) | payer BC ==
[2020-09-26 11:00] VITALS: BP 123/65
== END | disposition home or self-care (01) ==
LOC: CHF HDHVI 10:20
PROVIDERS: ATTEND Internal Medicine Cardiovascular Disease
DX: I50.9 Heart failure, unspecified (principal)
CPT/HCPCS: G0463

== ENCOUNTER 2021-09-01 12:57 | Inpatient (IN) | payer BC ==
[~2021-09-01] VITALS: Ht 182.9 cm; Wt 90.0 kg
[2021-09-01 14:39] LABS: Eosinophils # (auto) 0.2 10 ^3/uL (0-0.8); Nucleated Red Blood Cells % 0.2 %
[2021-09-01 14:42] LABS: Basophils # (auto) 0.2 10 ^3/uL (0-0.2); Basophils % (auto) 1.7 % (0.0-2.0); Eosinophils % (auto) 1.8 % (0.0-7.0); Hematocrit 47.1 % (41.0-53.0); Hemoglobin 14.5 g/dL (13.5-17.5); Lymphocytes # (auto) 1.4 10 ^3/uL (0.4-5.4); Lymphocytes % (auto) 14.9 % (10.0-50.0); Mean Corpuscular Hemoglobin 22.4 pg (28.0-32.0); Mean Corpuscular Hgb Conc. 30.9 g/dL (32.0-36.0); Mean Corpuscular Volume 72.5 fL (80.0-100.0); Monocytes % (auto) 9.8 % (0.0-12.0); Neutrophils % (auto) 71.8 % (37.0-80.0); Red Cell Distribution Width 19.7 % (11.8-14.3); White Blood Cell 9.7 10^3/uL (4.4-10.8)
[2021-09-01 14:47] LABS: Albumin 3.2 g/dL (3.4-5.0); Calcium 8.7 mg/dL (8.5-10.1); Magnesium 2.3 mg/dL (1.6-2.6); Potassium 4.3 mmol/L (3.5-5.1)
[2021-09-01 14:50] LABS: BUN/Creatinine Ratio 23.3; Bilirubin, Total 1.1 mg/dL (0.2-1.0); Total Protein 7.8 g/dL (6.4-8.2)
[2021-09-01] MEDS ORDERED: NITROGLYCERIN 0.4 MG SL TAB SL PRN (16:00)
[2021-09-01] MEDS ORDERED: MORPHINE SULFATE INJ 2 MG/ml SYRG IV PRN (16:00)
[2021-09-01] MEDS ORDERED: DEXTROSE (50%) 50ML SYRG IV PRN (16:00)
[2021-09-01] MEDS ORDERED: METOCLOPRAMIDE HCL 10 MG TAB PO PRN (16:00)
[2021-09-01] MEDS ORDERED: PANTOPRAZOLE 40 MG/10 ML VIAL INJ IV ONE (16:00)
[2021-09-01] MEDS ORDERED: ALPRAZolam 0.25 MG TAB PO PRN (16:00)
[2021-09-01] MEDS ORDERED: DOBUTamine 1000MCG/ML 250 ML IV ONE (16:15)
[2021-09-01] MEDS: ACCU-CHEK COMFORT CURVE STRIP VI SCH ×2 (16:37→22:29)
[2021-09-01] MEDS: InsuLIN REG 1unit/0.01ml Soln (100units/ml) SC SCH ×2 (16:38→22:00)
[2021-09-01] MEDS: metFORMIN HYDROCHLORIDE 500 MG TAB PO SCH (17:48)
[2021-09-01] MEDS: FUROSEMIDE INJECTION 100 MG in SODIUM CHL 0.9% 100 ML IV SCH (17:49)
[2021-09-01] MEDS: SILDENAFIL CITRATE 20 MG TAB PO SCH (20:00)
[2021-09-01 20:15] LABS: Urine Bacteria NONE SEEN /hpf (None Seen); Urine Blood Negative /uL (Negative); Urine Hyaline Cast FEW /lpf (0 - 2); Urine Specific Gravity 1.009 (1.001-1.035); Urine WBC 5 /hpf (0 - 3)
[2021-09-01] MEDS: IVABRADINE 5 MG TAB PO SCH (22:00)
[2021-09-01] MEDS: ATORVASTATIN 20 MG TAB PO SCH (22:06)
[2021-09-01] MEDS: POTASSIUM CHL 20 Meq TABLET PO SCH (22:06)
[2021-09-01] MEDS: MEXILETINE HYDROCHLORIDE 150 MG CAP PO SCH (22:07)
[2021-09-01 22:45] VITALS: BP 115/78
[2021-09-01 23:03] VITALS: BP 115/78
[2021-09-02 05:00] VITALS: BP 106/72
[2021-09-02] MEDS: FUROSEMIDE INJECTION 100 MG in SODIUM CHL 0.9% 100 ML IV SCH ×3 (06:07→22:13)
[2021-09-02] MEDS: ACCU-CHEK COMFORT CURVE STRIP VI SCH ×4 (06:07→21:56)
[2021-09-02] MEDS: POTASSIUM CHL 20 Meq TABLET PO SCH ×3 (06:07→21:55)
[2021-09-02] MEDS: InsuLIN REG 1unit/0.01ml Soln (100units/ml) SC SCH ×4 (06:08→21:58)
[2021-09-02 06:31] LABS: BUN/Creatinine Ratio 29.3; Calcium 8.6 mg/dL (8.5-10.1)
[2021-09-02 08:00] VITALS: BP 105/65
[2021-09-02 09:00] VITALS: BP 105/65
[2021-09-02] MEDS ORDERED: NITROGLYCERIN 0.4 MG SL TAB SL PRN (09:45)
[2021-09-02] MEDS: SILDENAFIL CITRATE 20 MG TAB PO SCH ×3 (09:58→19:56)
[2021-09-02] MEDS: DAPAGLIFLOZIN 5 MG TAB PO SCH (09:59)
[2021-09-02] MEDS: metFORMIN HYDROCHLORIDE 500 MG TAB PO SCH ×2 (09:59→17:55)
[2021-09-02] MEDS: CITALOPRAM HYDROBR 20 MG TAB PO SCH (10:00)
[2021-09-02] MEDS: DIGOXIN 0.125 MG TAB PO SCH (10:00)
[2021-09-02] MEDS: ASPirin 81 mg TAB PO SCH (10:00)
[2021-09-02] MEDS ORDERED: DOBUTAMINE IV SCH (10:00)
[2021-09-02] MEDS: PANTOPRAZOLE 40 MG/10 ML VIAL INJ IV SCH (10:01)
[2021-09-02] MEDS: IVABRADINE 5 MG TAB PO SCH ×2 (11:24→21:54)
[2021-09-02] MEDS: MEXILETINE HYDROCHLORIDE 150 MG CAP PO SCH ×2 (11:25→22:11)
[2021-09-02] MEDS: Glucerna Carbsteady SHAKE Vanilla 8oz PO SCH ×2 (12:00→18:00)
[2021-09-02 13:00] VITALS: BP 107/67
[2021-09-02] MEDS ORDERED: METO-281 PO (13:37)
[2021-09-02] MEDS ORDERED: INSU1INJ19 SC (13:37)
[2021-09-02] MEDS ORDERED: ESCI10TA PO (13:37)
[2021-09-02] MEDS ORDERED: LOSA25TA38 PO (13:37)
[2021-09-02] MEDS ORDERED: DULA0.5I SC (13:37)
[2021-09-02] MEDS ORDERED: SPIR25TA8 PO (13:37)
[2021-09-02] MEDS ORDERED: INSLISPI SC (13:37)
[2021-09-02] MEDS ORDERED: TEST200I32 IM (13:37)
[2021-09-02] MEDS ORDERED: DIGO0.12 PO (13:37)
[2021-09-02] MEDS ORDERED: MEXI150C15 PO (13:37)
[2021-09-02] MEDS ORDERED: APIX5TAB PO (13:37)
[2021-09-02] MEDS ORDERED: ALPR0.25 PO (13:37)
[2021-09-02 17:00] VITALS: BP 110/68
[2021-09-02] MEDS: ATORVASTATIN 20 MG TAB PO SCH (21:54)
[2021-09-02 22:00] VITALS: BP 112/65
[2021-09-02] MEDS ORDERED: MELATONIN 5 MG TAB PO SCH (22:00)
[2021-09-02] MEDS ORDERED: INSULIN LANTUS (GLARGINE) 1 /0.01ml (100units/ml) SC SCH (22:00)
[2021-09-03 05:00] VITALS: BP 97/65
[2021-09-03] MEDS: ACCU-CHEK COMFORT CURVE STRIP VI SCH ×2 (05:59→12:16)
[2021-09-03] MEDS: POTASSIUM CHL 20 Meq TABLET PO SCH ×2 (05:59→15:36)
[2021-09-03] MEDS: InsuLIN REG 1unit/0.01ml Soln (100units/ml) SC SCH ×2 (06:00→12:17)
[2021-09-03 07:32] LABS: BUN/Creatinine Ratio 23.3; Calcium 8.7 mg/dL (8.5-10.1)
[2021-09-03 08:00] VITALS: BP 103/65
[2021-09-03] MEDS: Glucerna Carbsteady SHAKE Vanilla 8oz PO SCH ×2 (08:00→13:47)
[2021-09-03] MEDS: SILDENAFIL CITRATE 20 MG TAB PO SCH ×2 (08:46→15:36)
[2021-09-03] MEDS: metFORMIN HYDROCHLORIDE 500 MG TAB PO SCH (08:46)
[2021-09-03] MEDS ORDERED: TORSEMIDE 20 MG TAB PO SCH (10:00)
[2021-09-03] MEDS ORDERED: SPIRONOLACTONE 25 MG TAB PO SCH (10:00)
[2021-09-03] MEDS: PANTOPRAZOLE 40 MG/10 ML VIAL INJ IV SCH (10:29)
[2021-09-03] MEDS: MEXILETINE HYDROCHLORIDE 150 MG CAP PO SCH (10:30)
[2021-09-03] MEDS: DAPAGLIFLOZIN 5 MG TAB PO SCH (10:30)
[2021-09-03] MEDS: CITALOPRAM HYDROBR 20 MG TAB PO SCH (10:31)
[2021-09-03] MEDS: ASPirin 81 mg TAB PO SCH (10:31)
[2021-09-03] MEDS: DIGOXIN 0.125 MG TAB PO SCH (10:31)
[2021-09-03] MEDS: IVABRADINE 5 MG TAB PO SCH (10:31)
[2021-09-03 12:00] VITALS: BP 101/63
[2021-09-03 15:20] VITALS: BP 101/63
== END 2021-09-03 16:05 | disposition home or self-care (01) | DRG 291 ==
LOC: ER 12:57 → TELE 16:01 → TELE-CENTR 22:54
PROVIDERS: ADMIT Internal Medicine; ATTEND Internal Medicine
DX: I11.0 Hypertensive heart disease with heart failure (principal); I50.43 Acute on chronic combined systolic (congestive) and diastolic (congestive) heart failure; D68.59 Other primary thrombophilia; N17.9 Acute kidney failure, unspecified; Z20.822 Contact with and (suspected) exposure to COVID-19; I42.9 Cardiomyopathy, unspecified; E11.319 Type 2 diabetes mellitus with unspecified diabetic retinopathy without macular edema; E11.65 Type 2 diabetes mellitus with hyperglycemia; E78.5 Hyperlipidemia, unspecified; F32.A Depression, unspecified; F41.9 Anxiety disorder, unspecified; E11.40 Type 2 diabetes mellitus with diabetic neuropathy, unspecified; I48.91 Unspecified atrial fibrillation; E11.21 Type 2 diabetes mellitus with diabetic nephropathy; Z76.82 Awaiting organ transplant status; Z83.3 Family history of diabetes mellitus; Z95.810 Presence of automatic (implantable) cardiac defibrillator
CPT/HCPCS: 36415; 70450; 71045; 80048; 80053; 80162; 81001; 82962; 83036; 83735; 83880; 84484; 85025; 93005; 99291; C9113; G0378; J1815

== ENCOUNTER 2021-09-07 14:07 | Inpatient (IN) | payer BC ==
[~2021-09-07] VITALS: Ht 182.9 cm; Wt 72.6 kg
[~2021-09-07 14:07] MED LIST changes: +ALPR0.25 PO; +APIX5TAB PO; +DIGO0.12 PO; +DULA0.5I SC; +ESCI10TA PO; +INSLISPI SC; +INSU1INJ19 SC; +LOSA25TA38 PO; +METO-281 PO; -MEX150C PO; +MEXI150C15 PO; +SPIR25TA8 PO; +TEST200I32 IM
[2021-09-07 14:35] LABS: Basophils # (auto) 0.1 10 ^3/uL (0-0.2); Basophils % (auto) 0.7 % (0.0-2.0); Eosinophils # (auto) 0.2 10 ^3/uL (0-0.8); Eosinophils % (auto) 2.2 % (0.0-7.0); Hematocrit 42.8 % (41.0-53.0); Hemoglobin 13.2 g/dL (13.5-17.5); Lymphocytes # (auto) 1.2 10 ^3/uL (0.4-5.4); Lymphocytes % (auto) 12.3 % (10.0-50.0); Mean Corpuscular Hgb Conc. 30.7 g/dL (32.0-36.0); Mean Corpuscular Volume 71.6 fL (80.0-100.0); Monocytes # (auto) 0.7 10 ^3/uL (0-1.3); Monocytes % (auto) 7.3 % (0.0-12.0); Neutrophils # (auto) 7.7 10 ^3/uL (1.6-8.6); Neutrophils % (auto) 77.5 % (37.0-80.0); Nucleated Red Blood Cells % 0.1 %; Red Blood Cells 5.99 10^6/uL (4.5-5.90); Red Cell Distribution Width 19.5 % (11.8-14.3)
[2021-09-07 14:53] LABS: Albumin 2.9 g/dL (3.4-5.0); Calcium 8.8 mg/dL (8.5-10.1); Potassium 4.1 mmol/L (3.5-5.1)
[2021-09-07 14:56] LABS: BUN/Creatinine Ratio 22.1; Bilirubin, Total 0.9 mg/dL (0.2-1.0); Total Protein 7.4 g/dL (6.4-8.2)
[2021-09-07] MEDS ORDERED: FUROSEMIDE INJECTION 100 MG in SODIUM CHL 0.9% 100 ML IV ONE (15:45)
[2021-09-07] MEDS ORDERED: NITROGLYCERIN 0.4 MG SL TAB SL PRN (17:15)
[2021-09-07] MEDS ORDERED: MORPHINE SULFATE INJ 2 MG/ml SYRG IV PRN (17:15)
[2021-09-07] MEDS ORDERED: DEXTROSE (50%) 50ML SYRG IV PRN (17:15)
[2021-09-07] MEDS ORDERED: METOCLOPRAMIDE HCL 10 MG TAB PO PRN (17:45)
[2021-09-07] MEDS: SILDENAFIL CITRATE 20 MG TAB PO SCH (20:12)
[2021-09-07] MEDS ORDERED: TADA5TAB11 PO (20:26)
[2021-09-07] MEDS ORDERED: DOBUTamine 1000MCG/ML 250 ML IV SCH (20:45)
[2021-09-07 21:30] VITALS: BP 103/64
[2021-09-07] MEDS ORDERED: METOCLOPRAMIDE HCL 10 MG TAB PO SCH (22:00)
[2021-09-07] MEDS: InsuLIN REG 1unit/0.01ml Soln (100units/ml) SC SCH (22:00)
[2021-09-07] MEDS ORDERED: metFORMIN HYDROCHLORIDE 850 MG TAB PO SCH (22:00)
[2021-09-07] MEDS ORDERED: metFORMIN HYDROCHLORIDE 500 MG TAB PO SCH (22:30)
[2021-09-07] MEDS: MELATONIN 5 MG TAB PO SCH (22:42)
[2021-09-07] MEDS: ACCU-CHEK COMFORT CURVE STRIP VI SCH (22:43)
[2021-09-07] MEDS: MEXILETINE HYDROCHLORIDE 150 MG CAP PO SCH (22:43)
[2021-09-07] MEDS: ALPRAZolam 0.25 MG TAB PO SCH (22:43)
[2021-09-07] MEDS: IVABRADINE 5 MG TAB PO SCH (22:47)
[2021-09-07 22:52] LABS: Urine Bacteria NONE SEEN /hpf (None Seen); Urine Blood Negative /uL (Negative); Urine Specific Gravity 1.013 (1.001-1.035); Urine WBC 1 /hpf (0 - 3)
[2021-09-07] MEDS ORDERED: METF-929 PO (23:03)
[2021-09-07] MEDS: metFORMIN HYDROCHLORIDE 500 MG TAB PO SCH (23:35)
[2021-09-08 04:56] LABS: Eosinophils # (auto) 0.4 10 ^3/uL (0-0.8); Hematocrit 39.5 % (41.0-53.0); Lymphocytes # (auto) 1.6 10 ^3/uL (0.4-5.4); Monocytes # (auto) 0.8 10 ^3/uL (0-1.3); Nucleated Red Blood Cells % 0.1 %
[2021-09-08 05:00] VITALS: BP 106/74
[2021-09-08 05:00] LABS: Basophils # (auto) 0.1 10 ^3/uL (0-0.2); Basophils % (auto) 1.2 % (0.0-2.0); Eosinophils % (auto) 3.9 % (0.0-7.0); Hemoglobin 12.9 g/dL (13.5-17.5); Lymphocytes % (auto) 16.3 % (10.0-50.0); Mean Corpuscular Hemoglobin 23.2 pg (28.0-32.0); Mean Corpuscular Hgb Conc. 32.6 g/dL (32.0-36.0); Mean Corpuscular Volume 71.2 fL (80.0-100.0); Monocytes % (auto) 8.6 % (0.0-12.0); Neutrophils # (auto) 6.8 10 ^3/uL (1.6-8.6); Red Blood Cells 5.55 10^6/uL (4.5-5.90); Red Cell Distribution Width 19.8 % (11.8-14.3); White Blood Cell 9.8 10^3/uL (4.4-10.8)
[2021-09-08 05:14] LABS: Potassium 3.8 mmol/L (3.5-5.1)
[2021-09-08 05:21] LABS: Albumin 2.7 g/dL (3.4-5.0); BUN/Creatinine Ratio 24.1; Bilirubin, Total 0.9 mg/dL (0.2-1.0); Calcium 8.5 mg/dL (8.5-10.1)
[2021-09-08] MEDS: InsuLIN REG 1unit/0.01ml Soln (100units/ml) SC SCH ×4 (06:22→21:55)
[2021-09-08] MEDS: ACCU-CHEK COMFORT CURVE STRIP VI SCH ×4 (06:22→21:55)
[2021-09-08] MEDS: SILDENAFIL CITRATE 20 MG TAB PO SCH ×3 (08:23→21:38)
[2021-09-08 09:00] VITALS: BP 107/74
[2021-09-08] MEDS ORDERED: Dapagliflozin Propanediol (Farxiga) 10 MG TABLET PO SCH (10:00)
[2021-09-08] MEDS ORDERED: Escitalopram Oxalate (Lexapro) 10 MG TABLET PO SCH (10:00)
[2021-09-08] MEDS: ASPirin-EC 81 mg tab PO SCH (10:14)
[2021-09-08] MEDS: ATORVASTATIN 20 MG TAB PO SCH (10:15)
[2021-09-08] MEDS: MEXILETINE HYDROCHLORIDE 150 MG CAP PO SCH ×2 (10:15→21:39)
[2021-09-08] MEDS: IVABRADINE 5 MG TAB PO SCH ×2 (10:15→21:38)
[2021-09-08] MEDS: DIGOXIN 0.125 MG TAB PO SCH (10:15)
[2021-09-08] MEDS: metFORMIN HYDROCHLORIDE 500 MG TAB PO SCH ×2 (10:15→21:38)
[2021-09-08] MEDS: ALPRAZolam 0.25 MG TAB PO SCH ×2 (10:16→21:39)
[2021-09-08] MEDS: MAGNESIUM OXIDE 400 MG TAB PO SCH (10:16)
[2021-09-08] MEDS: POTASSIUM CHLORIDE 8 MEQ TAB PO SCH (10:16)
[2021-09-08] MEDS ORDERED: FUROSEMIDE INJECTION 100 MG in SODIUM CHL 0.9% 100 ML IV SCH (10:30)
[2021-09-08] MEDS ORDERED: CITALOPRAM HYDROBR 20 MG TAB PO ONE (10:30)
[2021-09-08] MEDS: DAPAGLIFLOZIN 5 MG TAB PO SCH (12:02)
[2021-09-08 13:00] VITALS: BP 103/73
[2021-09-08 17:00] VITALS: BP 112/73
[2021-09-08] MEDS ORDERED: DOBUTAMINE IV SCH ×3 (17:00→19:30)
[2021-09-08] MEDS: FUROSEMIDE INJECTION 100 MG in SODIUM CHL 0.9% 100 ML IV SCH (19:24)
[2021-09-08] MEDS: MELATONIN 5 MG TAB PO SCH (21:39)
[2021-09-08 22:03] VITALS: BP 106/72
[2021-09-09] MEDS: FUROSEMIDE INJECTION 100 MG in SODIUM CHL 0.9% 100 ML IV SCH ×4 (00:02→15:07)
[2021-09-09 04:59] VITALS: BP 101/53
[2021-09-09] MEDS: ACCU-CHEK COMFORT CURVE STRIP VI SCH ×2 (06:40→12:02)
[2021-09-09] MEDS: InsuLIN REG 1unit/0.01ml Soln (100units/ml) SC SCH ×2 (06:40→11:30)
[2021-09-09 06:48] LABS: BUN/Creatinine Ratio 25.2; Potassium 3.7 mmol/L (3.5-5.1)
[2021-09-09 09:18] VITALS: BP 113/73
[2021-09-09] MEDS: SILDENAFIL CITRATE 20 MG TAB PO SCH ×2 (09:18→14:11)
[2021-09-09] MEDS: POTASSIUM CHLORIDE 8 MEQ TAB PO SCH (09:19)
[2021-09-09] MEDS: MAGNESIUM OXIDE 400 MG TAB PO SCH (09:20)
[2021-09-09] MEDS: ALPRAZolam 0.25 MG TAB PO SCH (09:20)
[2021-09-09] MEDS: DAPAGLIFLOZIN 5 MG TAB PO SCH (09:20)
[2021-09-09] MEDS: ASPirin-EC 81 mg tab PO SCH (09:21)
[2021-09-09] MEDS: metFORMIN HYDROCHLORIDE 500 MG TAB PO SCH (09:21)
[2021-09-09] MEDS: ATORVASTATIN 20 MG TAB PO SCH (09:21)
[2021-09-09] MEDS: DIGOXIN 0.125 MG TAB PO SCH (09:22)
[2021-09-09] MEDS: MEXILETINE HYDROCHLORIDE 150 MG CAP PO SCH (09:23)
[2021-09-09] MEDS: IVABRADINE 5 MG TAB PO SCH (09:24)
[2021-09-09] MEDS ORDERED: CITALOPRAM HYDROBR 20 MG TAB PO SCH (10:00)
[2021-09-09 13:00] VITALS: BP 104/59
[2021-09-09 13:27] VITALS: BP 113/73
[2021-09-09 16:17] VITALS: BP 105/74
== END 2021-09-09 17:47 | disposition home or self-care (01) | DRG 291 ==
LOC: ER 14:07 → TELE 17:05 → TELE-CENTR 21:20
PROVIDERS: ADMIT Registered Nurse; ATTEND Internal Medicine
DX: I13.0 Hypertensive heart and chronic kidney disease with heart failure and stage 1 through stage 4 chronic kidney disease, or unspecified chronic kidney disease (principal); I50.43 Acute on chronic combined systolic (congestive) and diastolic (congestive) heart failure; D68.59 Other primary thrombophilia; I48.20 Chronic atrial fibrillation, unspecified; E11.22 Type 2 diabetes mellitus with diabetic chronic kidney disease; E11.319 Type 2 diabetes mellitus with unspecified diabetic retinopathy without macular edema; E11.65 Type 2 diabetes mellitus with hyperglycemia; E78.5 Hyperlipidemia, unspecified; G62.9 Polyneuropathy, unspecified; Z20.822 Contact with and (suspected) exposure to COVID-19; N18.31 Chronic kidney disease, stage 3a; E11.51 Type 2 diabetes mellitus with diabetic peripheral angiopathy without gangrene; Z83.3 Family history of diabetes mellitus; Z95.810 Presence of automatic (implantable) cardiac defibrillator
CPT/HCPCS: 36415; 71045; 80048; 80053; 80162; 81001; 82962; 83880; 84484; 85025; 93005; 93925; 96365; 99291; G0378

== ENCOUNTER 2024-11-11 07:15 | Emergency (ER) | payer BC, MEDICARE ==
[~2024-11-11] VITALS: Ht 182.9 cm; Wt 93.0 kg
[~2024-11-11 07:15] MED LIST changes: -APIX5TAB PO; -FURO40TA4 PO; -GLIM-5 PO; -INSLISPI SC; -LOSA25TA38 PO; -METF-371 PO; +METF-929 PO; -POTA8TAB2 PO; +POTA8TAB38 PO; +TADA5TAB11 PO
[2024-11-11] MEDS ORDERED: AMOX500T3 PO (08:08)
[2024-11-11] MEDS ORDERED: CLIN1CAP70 PO (08:08)
--- NOTE | 2024-11-11 08:08 | ED.PDOC ---
History of Present Illness HPI Comments 64-year-old male came to the ER stating that he has been having a swelling midway of the back mostly in the thoracic region lateral to the spine. Measuring 3 x 3 cm. Movable. Tender to touch. He is unable to sleep on the back without having pain. He noticed this swelling about three weeks ago. Denies nausea vomiting. He does have a history of hypertension diabetes cardiac transplant. Denies any other symptoms. Chief Complaint: Abscess Time Seen by MD: 07:22 Primary Care Provider: PAUL Reviewed Notes: Nurses Notes, Medications, Allergies Allergies: Coded Allergies: Beta Adrenergic Blockers (Verified Allergy, Intermediate, 11/11/24) Home Meds Active Scripts Dapagliflozin Propanediol (Farxiga) 10 Mg Tab, 10 MG PO DAILY for 30 Days, #30 TAB Prov:DOMO JOHNSON MD 11/24/19 Reported Medications Metformin HCl (Metformin Hydrochloride) 1,000 Mg Tab, 1000 MG PO BID, TAB 09/07/21 Tadalafil (Cialis) 5 Mg Tab, 1 TAB PO DAILY, #30 TAB 5 Refills 09/07/21 Testosterone Cypionate (Testosterone Cypionate) 200 Mg/Ml Inj, 200 MG IM UD for 14 Days, INJ 09/02/21 Alprazolam (Xanax) 0.25 Mg Tb, 1 TAB PO BID, #60 TAB 09/02/21 Insulin Glargine (Basaglar Kwikpen) 100 Unit/Ml Inj, 50 UNIT SC QAM, INJ 09/02/21 Dulaglutide (Trulicity) 1.5 Mg/0.5 Ml Inj, 1.5 MG SC QWEEKLY, INJ 09/02/21 Digoxin (Digoxin) 125 Mcg Tab, 125 MCG PO DAILY, TAB 09/02/21 Mexiletine HCl (Mexiletine Hydrochloride) 150 Mg Cap, 150 MG PO BID, CAP 09/02/21 Escitalopram Oxalate (Lexapro) 10 Mg Tab, 1 TAB PO DAILY, #90 TAB 3 Refills 09/02/21 Metoclopramide Hcl (Reglan) 10 Mg Tab, 10 MG PO BID, TAB 09/02/21 Spironolactone (Spironolactone) 25 Mg Tab, 25 MG PO DAILY, TAB 09/02/21 Magnesium Oxide (Magnesium) 500 Mg Tab, 1000 MG PO DAILY, TAB 11/21/19 Ivabradine Hydrochloride (Corlanor) 5 Mg Tab, 5 MG PO BID, TAB 11/21/19 Potassium Chloride (Klor-Con 8) 8 Meq Tab, 8 MEQ PO DAILY, TAB 11/21/19 Aspirin (Aspir-Low) 81 Mg Tab, 81 MG PO DAILY for 30 Days, MG 11/21/19 Atorvastatin Calcium (ATORVASTATIN CALCIUM) 20 Mg Tab, 20 MG PO DAILY, TAB 05/07/19 Information Source: Patient Mode of Arrival: Ambulatory Severity: Moderate Timing: Weeks Duration: Since onset Past Medical History PAST MEDICAL HISTORY: CHF, DM, High Lipids, HTN Surgical History: Pacemaker Family History Family History: Family hx of DM, Family hx of heart svetlana Social History Smoker: Non-Smoker Alcohol: Rarely Drugs: Denies Drug Use Lives In: Home Constitutional: denies: chills, diaphoresis, fatigue, fever, malaise, sweats, weakness, others EENTM: denies: blurred vision, double vision, ear bleeding, ear discharge, ear drainage, ear pain, ear ringing, eye pain, eye redness, hearing loss, mouth pain, mouth swelling, nasal discharge, nose bleeding, nose congestion, nose pain, photophobia, tearing, throat pain, throat swelling, voice changes, others Respiratory: denies: cough, hemoptysis, orthopnea, SOB at rest, shortness of breath, SOB with excertion, stridor, wheezing, others Cardiovascular: denies: chest pain, dizzy spells, diaphoresis, Dyspnea on exertion, edema, irregular heart beat, left arm pain, lightheadedness, palpitations, PND, syncope, others Gastrointestinal: denies: abdomen distended, abdominal pain, blood streaked bowels, constipated, diarrhea, dysphagia, difficulty swallowing, hematemesis, melena, nausea, poor appetite, poor fluid intake, rectal bleeding, rectal pain, vomiting, others Genitourinary: denies: burning, dysuria, flank pain, frequency, hematuria, incontinence, penile discharge, penile sore, pain, testicle pain, testicle swelling, urgency, others Neurological: denies: dizziness, fainting, headache, left sided numbness, left sided weakness, numbness, paresthesia, pre-existing deficit, right sided numbness, right sided weakness, seizure, speech problems, tingling, tremors, weakness, others Musculoskeletal: denies: back pain, gout, joint pain, joint swelling, muscle pain, muscle stiffness, neck pain, others Integumetry: reports: lesions (Back); denies: bruises, change in color, change in hair/nails, dryness, laceration, lumps, rash, wounds, others Allergic/Immunocompromised: denies: Difficulty Healing, Frequent Infections, Hives, Itching, others Hematologic/Lymphatic: denies: anemia, blood clots, easy bleeding, easy bruising, swollen glands, others Endocrine: denies: excessive hunger, excessive sweating, excessive thirst, excessive urination, flushing, intolerance to cold, intolerance to heat, unexplained weight gain, unexplained weight loss, others Psychiatric: denies: anxiety, bipolar disorder, depression, hopeless, panic disorder, schizophrenia, sleepless, suicidal, others Physical Exam General Appearance: Moderate Distress HEENT: Normal ENT Inspection, Pharynx Normal, TMs Normal Neck: Full Range of Motion, Non-Tender, Normal, Normal Inspection Respiratory: Chest Non-Tender, Lungs Clear, No Accessory Muscle Use, No Respiratory Distress, Normal Breath Sounds Cardiovascular: No Edema, No JVD, No Murmur, No Gallop, Normal Peripheral Pulses, Regular Rate/Rhythm Breast Exam: Deferred Gastrointestinal: No Organomegaly, Non Tender, No Pulsatile Mass, Normal Bowel Sounds, Soft Genitalia: Deferred Pelvic: Deferred Rectal: Deferred Extremities: No calf tenderness, Normal capillary refill, Normal inspection, Normal range of motion, Non-tender, No pedal edema Musculoskeletal : Apperance: Normal Neurologic: Alert, vocational psychologist II-XII nml as Tested, No Motor Deficits, Normal Affect, Normal Mood, No Sensory Deficits Cerebellar Function: Normal Reflexes: Normal Skin: Normal Color, Wounds (3 x 3 cm movable lesion midway of the back) Peripheral Pulses: 3+ Radial (R), 3+ Radial (L) Lymphatic: No Adenopathy Was a procedure done? Was a procedure done?: No Differential Dx Considerations may include: Cellulitis Cyst X-Ray, Labs, Meds, VS Vital Signs Date Time Temp Pulse Resp B/P (MAP) Pulse Ox O2 Delivery O2 Flow Rate FiO2 11/11/24 07:16 97.9 102 16 156/84 98 97.9 Patient alert. Complaining of mild swelling with pain in the back. Vitals stable. Answering questions. Spine intact. No leg swelling No shortness a breath. On examination he does have 3 x 3 cm movable lesion with redness. Possible infected cyst. Was given Keflex clindamycin antibiotic. Was told to come back in a week to evaluate whether it is an abscess that can be drain or cyst that needs excision biopsy. Was told to follow up with his primary care physician. Was told to come back if there is any problem. Time of 1ST Reevaluation: 08:04 Reevaluation 1ST: Unchanged Patient Education/Counseling: Diagnosis, Treatment, Prognosis, Need For Follow Up Family Education/Counseling: No Family Present SEPSIS Sepsis Screen Date sepsis recognized/suspect: Nov 11, 2024 Time Sepsis recognized/suspect: 716 Recent Procedure: No On Antibiotic Therapy: No Respiratory Rate >20: No Heart Rate >90: Yes Temp<36 C (96.8 F) or >38.3 C: No SBP <90 or MAP <65 mmHG: No New Acute Mental Status Change: No Is the patient on CPAP, BIPAP,: No Physician Orders Thoracic Spine Wo [place] (11/11/24 07:49) Vital Signs Date Time Temp Pulse Resp B/P (MAP) Pulse Ox O2 Delivery O2 Flow Rate FiO2 11/11/24 07:16 97.9 102 16 156/84 98 97.9 Departure 1 Departure Time of Disposition: 08:05 Impression: Primary Impression: Cellulitis Qualified Codes: L03.90 - Cellulitis, unspecified Additional Impression: Cyst Disposition: 01 HOME / SELF CARE / HOMELESS Condition: Good Additional Instructions: Discharge Note: Continue on your medications. Do not drive when taking narcotics. Drink plenty of fluids. Follow up with your primary Dr. Take your prescriptions as ordered. If your condition becomes worse call and follow up with your primary Dr. for instructions or return to the ER if needed. Keep wound clean and dry. Thank you for visiting [facility]. e-Prescriptions Clindamycin Hcl (Clindamycin Hcl) 300 Mg Cap 1 CAP PO TID for 7 Days, #21 CAP Prov: MERLENE OROZCO MD 11/11/24 Amoxicillin Trihydrate (Amoxicillin) 500 Mg Tab 1 TAB PO TID for 7 Days, #21 TAB Prov: MERLENE OROZCO MD 11/11/24 Discharged With: Self Critical Care Note Critical Care Time?: No Stability Stability form required: No Heart Score Heart Score: Heart Score Response (Comments) Value History N/A 0 EKG N/A 0 Age N/A 0 Risk Factors N/A 0 Troponin N/A 0 Total 0 MERLENE OROZCO MD Nov 11, 2024 08:08
[2024-11-11 08:13] VITALS: BP 154/98; PULSE 86; RESP 16; TEMP 98.6; O2SAT 99
--- NOTE | 2024-11-11 08:37 | DVH ---
CT THORACIC SPINE WO CONTRAS INDICATION: cystvsabscess EXAM DATE: 11/11/2024 07:55 AM COMPARISON: None RADIATION DOSE: CTDIvol: 34 mGy, DLP: 1433 mGy*cm PROCEDURE: Utilizing the CT scanner, contiguous axial scans were obtained through the thoracic spine. Image data were processed using Standard and Bone algorithms. Coronal and sagittal reformatted image s were then generated. All CT scans at this medical facility are performed using dose modulation techniques as appropriate t o a performed exam including the following: Automated exposure control was utilized; adjustment of th e MA and/or KV according to patient size; and use of iterative reconstruction technique. FINDINGS: The thoracic vertebral body heights and alignment are maintained. The intervertebral disc s paces are degenerative. The cortical margins are intact. The spinal canal and neural foramina are pat ent at all levels. 1.4cm cystic lesion along the midline mid back subcutaneous fat with adjacent fat stranding could be an inflamed cyst or phlegmon. IMPRESSION: 1.4cm cystic lesion along the midline mid back subcutaneous fat with adjacent fat stranding could be an inflamed cyst or phlegmon. No acute fracture CT findings of the thoracic spine.
[2024-11-15] MEDS ORDERED: ACE3T PO (11:05)
== END 2024-11-11 08:15 | disposition home or self-care (01) ==
LOC: ER 07:15
DX: L03.312 Cellulitis of back [any part except buttock and flank] (principal); G96.191 Perineural cyst; I11.0 Hypertensive heart disease with heart failure; I50.9 Heart failure, unspecified; E11.9 Type 2 diabetes mellitus without complications; E78.5 Hyperlipidemia, unspecified; F10.90 Alcohol use, unspecified, uncomplicated; Z79.899 Other long term (current) drug therapy; Z95.0 Presence of cardiac pacemaker; Z79.85 Long-term (current) use of injectable non-insulin antidiabetic drugs; Z79.84 Long term (current) use of oral hypoglycemic drugs; Z79.82 Long term (current) use of aspirin; Y90.9 Presence of alcohol in blood, level not specified
CPT/HCPCS: 72128

== ENCOUNTER → 2024-11-15 | Day surgery (SDC) | payer MEDICARE ==
[~2024-11-15] VITALS: Ht 182.9 cm; Wt 93.2 kg
[~2024-11-15] MED LIST changes: +ACCU-CHEK COMFORT CURVE STRIP VI ONE; +ACE3T PO; +AMOX500T3 PO; +CLIN1CAP70 PO; +HYDROmorphone HCL 2 MG/ML VL/or syr IV PRN; +HYDROmorphone HCL 2 MG/ML VL/or syr ONE; +KETAMINE 50mg/ML 1ml syringe ONE; +KETOROLAC TROMETH 30 MG/ML 1ML VIAL IV ONE; +METOCLOPRAMIDE HCL 5MG/ml INJ 2ml VIAL IV PRN; +MIDAZOLAM HCL 2MG/2ML 2ml VIAL (1mg/ml) ONE; +MORPHINE SULFATE 4 MG/ML SYR/VIAL IV PRN; +ONDANSETRON HCL 4 MG/2 ML VIAL ONE; +SODIUM CHLORIDE LOCK 10 ML ONE; +ceFAZolin 1GM VL ONE; +ceFAZolin 2 GM/D5W50ml 50 ML IV ONE; +fentaNYL CITRATE 100 MCG/2 ML VL ONE
--- NOTE | 2024-11-15 04:32 | ED.PDOC ---
History of Present Illness HPI Comments 64 year old male presents to the ED with a chief compliant of wound check onset today. Patient states he has been experiencing cyst to his mid back for the past 3 weeks, was seen in this ED on 11/11/24. Patient was told by Dr. Caicedo to come to ED today at 04:30 for pre-op labs, he will have cyst surgically removed today. Patient currently rates pain 6/10. PMHx CHF, DM, HLD, HTN. Denies chest pain, dizziness, shortness of breath, fever, chills. No other symptoms or modifying factors present at this time. Chief Complaint: Wound Check Time Seen by MD: 04:25 Primary Care Provider: PAUL Reviewed Notes: Medications, Allergies Allergies: Coded Allergies: Beta Adrenergic Blockers (Verified Allergy, Intermediate, 11/11/24) Home Meds Active Scripts Clindamycin Hcl (Clindamycin Hcl) 300 Mg Cap, 1 CAP PO TID for 7 Days, #21 CAP Prov:MERLENE OROZCO MD 11/11/24 Amoxicillin Trihydrate (Amoxicillin) 500 Mg Tab, 1 TAB PO TID for 7 Days, #21 TAB Prov:MERLENE OROZCO MD 11/11/24 Dapagliflozin Propanediol (Farxiga) 10 Mg Tab, 10 MG PO DAILY for 30 Days, #30 TAB Prov:DOMO JOHNSON MD 11/24/19 Reported Medications Metformin HCl (Metformin Hydrochloride) 1,000 Mg Tab, 1000 MG PO BID, TAB 09/07/21 Tadalafil (Cialis) 5 Mg Tab, 1 TAB PO DAILY, #30 TAB 5 Refills 09/07/21 Testosterone Cypionate (Testosterone Cypionate) 200 Mg/Ml Inj, 200 MG IM UD for 14 Days, INJ 09/02/21 Alprazolam (Xanax) 0.25 Mg Tb, 1 TAB PO BID, #60 TAB 09/02/21 Insulin Glargine (Basaglar Kwikpen) 100 Unit/Ml Inj, 50 UNIT SC QAM, INJ 09/02/21 Dulaglutide (Trulicity) 1.5 Mg/0.5 Ml Inj, 1.5 MG SC QWEEKLY, INJ 09/02/21 Digoxin (Digoxin) 125 Mcg Tab, 125 MCG PO DAILY, TAB 09/02/21 Mexiletine HCl (Mexiletine Hydrochloride) 150 Mg Cap, 150 MG PO BID, CAP 09/02/21 Escitalopram Oxalate (Lexapro) 10 Mg Tab, 1 TAB PO DAILY, #90 TAB 3 Refills 09/02/21 Metoclopramide Hcl (Reglan) 10 Mg Tab, 10 MG PO BID, TAB 09/02/21 Spironolactone (Spironolactone) 25 Mg Tab, 25 MG PO DAILY, TAB 09/02/21 Magnesium Oxide (Magnesium) 500 Mg Tab, 1000 MG PO DAILY, TAB 11/21/19 Ivabradine Hydrochloride (Corlanor) 5 Mg Tab, 5 MG PO BID, TAB 11/21/19 Potassium Chloride (Klor-Con 8) 8 Meq Tab, 8 MEQ PO DAILY, TAB 11/21/19 Aspirin (Aspir-Low) 81 Mg Tab, 81 MG PO DAILY for 30 Days, MG 11/21/19 Atorvastatin Calcium (ATORVASTATIN CALCIUM) 20 Mg Tab, 20 MG PO DAILY, TAB 05/07/19 Information Source: Patient, Spouse Mode of Arrival: Ambulatory Severity: Moderate Timing: Hours Duration: Since onset Prehospital treatment: None Past Medical History PAST MEDICAL HISTORY: CHF, DM, High Lipids, HTN Surgical History: Pacemaker Family History Family History: Family hx of DM, Family hx of heart svetlana Social History Smoker: Non-Smoker Alcohol: Rarely Drugs: Denies Drug Use Lives In: Home Constitutional: denies: chills, diaphoresis, fatigue, fever, malaise, sweats, weakness, others EENTM: denies: blurred vision, double vision, ear bleeding, ear discharge, ear drainage, ear pain, ear ringing, eye pain, eye redness, hearing loss, mouth pain, mouth swelling, nasal discharge, nose bleeding, nose congestion, nose pain, photophobia, tearing, throat pain, throat swelling, voice changes, others Respiratory: denies: cough, hemoptysis, orthopnea, SOB at rest, shortness of breath, SOB with excertion, stridor, wheezing, others Cardiovascular: denies: chest pain, dizzy spells, diaphoresis, Dyspnea on exert ion, edema, irregular heart beat, left arm pain, lightheadedness, palpitations, PND, syncope, others Gastrointestinal: denies: abdomen distended, abdominal pain, blood streaked bowels, constipated, diarrhea, dysphagia, difficulty swallowing, hematemesis, melena, nausea, poor appetite, poor fluid intake, rectal bleeding, rectal pain, vomiting, others Genitourinary: denies: burning, dysuria, flank pain, frequency, hematuria, incontinence, penile discharge, penile sore, pain, testicle pain, testicle swelling, urgency, others Neurological: denies: dizziness, fainting, headache, left sided numbness, left sided weakness, numbness, paresthesia, pre-existing deficit, right sided numbness, right sided weakness, seizure, speech problems, tingling, tremors, weakness, others Musculoskeletal: denies: back pain, gout, joint pain, joint swelling, muscle pain, muscle stiffness, neck pain, others Integumetry: denies: bruises, change in color, change in hair/nails, dryness, laceration, lesions, lumps, rash, wounds, others Allergic/Immunocompromised: denies: Difficulty Healing, Frequent Infections, Hives, Itching, others Hematologic/Lymphatic: denies: anemia, blood clots, easy bleeding, easy bruising, swollen glands, others Endocrine: denies: excessive hunger, excessive sweating, excessive thirst, excessive urination, flushing, intolerance to cold, intolerance to heat, unexplained weight gain, unexplained weight loss, others Psychiatric: denies: anxiety, bipolar disorder, depression, hopeless, panic disorder, schizophrenia, sleepless, suicidal, others All Other Systems: Reviewed and Negative Physical Exam General Appearance: No Apparent Distress, Normal HEENT: Normal ENT Inspection, Pharynx Normal, TMs Normal Neck: Full Range of Motion, Non-Tender, Normal, Normal Inspection Respiratory: Chest Non-Tender, Lungs Clear, No Accessory Muscle Use, No Respiratory Distress, Normal Breath Sounds Cardiovascular: No Edema, No JVD, No Murmur, No Gallop, Normal Peripheral Pulses, Regular Rate/Rhythm Breast Exam: Deferred Gastrointestinal: No Organomegaly, Non Tender, No Pulsatile Mass, Normal Bowel Sounds, Soft Genitalia: Deferred Pelvic: Deferred Rectal: Deferred Extremities: No calf tenderness, Normal capillary refill, Normal inspection, Normal range of motion, Non-tender, No pedal edema Musculoskeletal : Apperance: Normal Neurologic: Alert, retort furnace helper II-XII nml as Tested, No Motor Deficits, Normal Affect, Normal Mood, No Sensory Deficits Cerebellar Function: Normal Reflexes: Normal Skin: Dry, Normal Color, Warm Lymphatic: No Adenopathy Was a procedure done? Was a procedure done?: No Differential Dx Considerations may include: Differential diagnosis includes but not limited to, cellulitis, abscess, deep tissue extension, sepsis and others X-Ray, Labs, Meds, VS Vital Signs Date Time Temp Pulse Resp B/P (MAP) Pulse Ox O2 Delivery O2 Flow Rate FiO2 11/15/24 05:00 82 11/15/24 04:30 98.0 86 18 135/89 (104) 98 98.0 11/15/24 04:30 Room Air* 0 21 11/15/24 04:14 98.0 89 18 135/89 97 98.0 Lab Test 11/15/24 04:35 Range/Units White Blood Count 8.6 4.4-10.8 10^3/uL Red Blood Count 5.50 4.5-5.90 10^6/uL Hemoglobin 15.7 13.5-17.5 g/dL Hematocrit 46.2 41.0-53.0 % Mean Corpuscular Volume 84.0 80.0-100.0 fL Mean Corpuscular Hemoglobin 28.6 28.0-32.0 pg Mean Corpuscular Hemoglobin Concent 34.1 32.0-36.0 g/dL Red Cell Distribution Width 15.5 H 11.8-14.3 % Platelet Count 307 140-450 10^3/uL Mean Platelet Volume 7.1 6.9-10.8 fL Neutrophils (%) (Auto) 66.7 37.0-80.0 % Lymphocytes (%) (Auto) 21.2 10.0-50.0 % Monocytes (%) (Auto) 9.9 0.0-12.0 % Eosinophils (%) (Auto) 2.0 0.0-7.0 % Basophils (%) (Auto) 0.2 0.0-2.0 % Neutrophils # (Auto) 5.7 1.6-8.6 10 ^3/uL Lymphocytes # (Auto) 1.8 0.4-5.4 10 ^3/uL Monocytes # (Auto) 0.9 0-1.3 10 ^3/uL Eosinophils # (Auto) 0.2 0-0.8 10 ^3/uL Basophils # (Auto) 0 0-0.2 10 ^3/uL Nucleated Red Blood Cells 0.0 % Prothrombin Time 10.3 9.3-11.8 sec Prothrombin Time INR 0.97 0.9-1.15 Activated Partial Thromboplast Time 29.3 24.5-34.5 SEC Sodium Level 139 136-145 mmol/L Potassium Level 4.6 3.5-5.1 mmol/L Chloride Level 106 98-107 mmol/L Carbon Dioxide Level 24 20-31 mmol/L Anion Gap 9 5-15 Blood Urea Nitrogen 16 9-23 mg/dL Creatinine 1.23 0.700-1.30 mg/dL Glomerular Filtration Rate Calc 66 >90 mL/min BUN/Creatinine Ratio 13.0 10.0-20.0 Serum Glucose 133 H 74-106 mg/dL Calcium Level 9.7 8.7-10.4 mg/dL Time of 1ST Reevaluation: 04:55 Reevaluation 1ST: Unchanged Patient Education/Counseling: Diagnosis, Treatment, Prognosis Family Education/Counseling: No Family Present SEPSIS Sepsis Screen Date sepsis recognized/suspect: Nov 15, 2024 Time Sepsis recognized/suspect: 413 Recent Procedure: No On Antibiotic Therapy: No Respiratory Rate >20: No Heart Rate >90: No Temp<36 C (96.8 F) or >38.3 C: No SBP <90 or MAP <65 mmHG: No New Acute Mental Status Change: No Is the patient on CPAP, BIPAP,: No Vital Signs Date Time Temp Pulse Resp B/P (MAP) Pulse Ox O2 Delivery O2 Flow Rate FiO2 11/15/24 05:00 82 11/15/24 04:30 98.0 86 18 135/89 (104) 98 98.0 11/15/24 04:30 Room Air* 0 21 11/15/24 04:14 98.0 89 18 135/89 97 98.0 Laboratory Tests Test 11/15/24 04:35 White Blood Count 8.6 10^3/uL (4.4-10.8) Departure 1 Departure Time of Disposition: 05:52 Impression: Primary Impression: Sebaceous cyst Disposition: 01 HOME / SELF CARE / HOMELESS Condition: Stable Discharged With: Self Comments Lab results unremarkable. Patient is scheduled for outpatient surgery on a sebaceous cyst. Patient can proceed to outpatient procedure area and report to Dr. Caicedo Critical Care Note Critical Care Time?: No Stability Stability form required: No I personally scribed for MIKE BARRIENTOS MD ([email or web address]) on 11/15/24 at 04:32. Electronically submitted by Suyapa Corona ([email or web address]). MIKE BARRIENTOS MD Nov 15, 2024 04:32
[2024-11-15 04:51] LABS: Hematocrit 46.2 % (41.0-53.0); Hemoglobin 15.7 g/dL (13.5-17.5); Mean Corpuscular Hemoglobin 28.6 pg (28.0-32.0); Mean Corpuscular Volume 84.0 fL (80.0-100.0); Nucleated Red Blood Cells % 0.0 %
--- NOTE | 2024-11-15 05:02 | ECG ---
[facility] Test Date: 2024-11-15 Test Time: 05:00:03 Pat Name: LITZY MCFARLAND Department: Room: Gender: M [employer] Employee: J : 1960 Requested By: MIKE BARRIENTOS Order Number: [id number] Reading MD: Ghanshyam Galeana Measurements Intervals [place] Rate: 82 P: 49 VA: 147 QRS: 129 QRSD: 94 T: -16 QT: 383 QTc: 448 Interpretive Statements Sinus rhythm Consider right ventricular hypertrophy Inferior infarct, age indeterminate Electronically Signed On 11-15-2024 17:03:16 PDT by Ghanshyam Galeana Please click the below link to view image of tracing.
[2024-11-15 05:03] LABS: Chloride 106 mmol/L (98-107); Potassium 4.6 mmol/L (3.5-5.1); Sodium 139 mmol/L (136-145)
[2024-11-15 05:04] LABS: Anion Gap 9 (5-15); Carbon Dioxide 24 mmol/L (20-31)
[2024-11-15 05:05] LABS: Calcium 9.7 mg/dL (8.7-10.4)
[2024-11-15 05:06] LABS: INR 0.97 (0.9-1.15); Partial Thromboplastin Time 29.3 SEC (24.5-34.5); Prothrombin Time 10.3 sec (9.3-11.8)
[2024-11-15 05:09] LABS: BUN/Creatinine Ratio 13.0 (10.0-20.0); Blood Urea Nitrogen 16 mg/dL (9-23)
[2024-11-15 05:10] LABS: Glucose 133 mg/dL (74-106)
[2024-11-15 07:40] VITALS: PULSE 80; RESP 14; O2SAT 98
--- NOTE | 2024-11-15 08:17 | DVH ---
CHEST RADIOGRAPH Indication: SURGERY TODAY Technique: Single frontal view of the chest was obtained Comparison: CHEST PORTABLE on DOS: 09/07/21, CXRP on DOS: 09/07/21, CHEST PORTABLE on DOS: 09/01/21, CXR P on DOS: 09/01/21, CHEST TWO VIEWS ROUTINE on DOS: 08/22/20 FINDINGS: Lines and Tubes: None Lungs: No focal consolidation. Pleura: No effusion. No pneumothorax. Cardiomediastinal contours: Unremarkable Bones: Median sternotomy . IMPRESSION: No acute cardiopulmonary disease.
[2024-11-15] MEDS: LIDOCAINE 1%HCL (LOCAL ANESTH) 10 ML MDV IJ ONE (10:47)
[2024-11-15 11:05] VITALS: PULSE 98; RESP 15; TEMP 97.8; O2SAT 98
--- NOTE | 2024-11-15 11:21 | DVHOP ---
DATE OF SURGERY: 11/15/2024 PREOPERATIVE DIAGNOSIS: Large mass mid back. POSTOPERATIVE DIAGNOSIS: Large mass mid back. SURGEON: Clem Caicedo MD IT ACCOUNT MANAGER: Noel Turner NP ANESTHESIA: Local with IV sedation, Dr. Garcia. PROCEDURE: Excision of mass. DESCRIPTION OF PROCEDURE: Under adequate anesthesia with the patient's back prepped and draped and the patient in lateral decubitus position on his right side, the patient's lesion was first infiltrated with 0.25% Marcaine and 0.5% Xylocaine with epinephrine mixture. The patient's wound consisted of a large mass measuring approximately 5 cm in diameter, was quite erythematous. There was a punctum which was draining. The punctum was included in elliptical skin incision which was then deepened through much thickened skin and adipose tissue. The entire mass was excised and the specimen submitted for histopathologic examination. Cultures and sensitivities were submitted. The wound was then pulse lavaged with 1 liter of saline containing Ancef and closed partially with full-thickness Prolene sutures subsequent to which a wound VAC was applied over the fresh wound. The patient being a heart transplant patient is on multiple medications including Plavix and aspirin and significant oozing was witnessed. The patient remained hemodynamically stable throughout the procedure and left the operating room following an accurate needle and sponge count. His was thoroughly informed in person in the waiting room and his daughter who is an RN in the ICU was informed by phone. MD JEN Goldstein/PAULINO TID: [id number] RECEIPT: [id number]
[2024-11-15] MEDS: MORPHINE SULFATE INJ 2 MG/ml SYRG IV PRN (11:24)
[2024-11-15] MEDS: ACETAMINOPHEN IV 1000 MG/100ML (10MG/ML) IV ONE (11:55)
[2024-11-15] MEDS: ACETAMINOPHEN IV 100 ML IV ONE (12:16)
[2024-11-15] MEDS: HYDROmorphone HCL 2 MG/ML VL/or syr IV PRN (12:24)
[2024-11-15 13:10] VITALS: BP 127/80; PULSE 94; RESP 13; O2SAT 98
== END | disposition home or self-care (01) ==
LOC: ER 04:09
PROVIDERS: ATTEND Surgery
DX: L72.0 Epidermal cyst (principal); E11.9 Type 2 diabetes mellitus without complications; L72.3 Sebaceous cyst; E78.5 Hyperlipidemia, unspecified; I11.0 Hypertensive heart disease with heart failure; I50.9 Heart failure, unspecified; Z79.82 Long term (current) use of aspirin; Z79.84 Long term (current) use of oral hypoglycemic drugs; Z79.85 Long-term (current) use of injectable non-insulin antidiabetic drugs; Z79.899 Other long term (current) drug therapy; Z83.3 Family history of diabetes mellitus; Z95.0 Presence of cardiac pacemaker; R22.2 Localized swelling, mass and lump, trunk; R23.4 Changes in skin texture
CPT/HCPCS: 11404; 36415; 71045; 80048; 85025; 85610; 85730; 88305; 93005; 96374; 96375; 99285; J0690; J1171; J2003; J2250; J2270; J2405; J3010; J0131